=== PATIENT | male | born 1950 | race Caucasian/White ===

== ENCOUNTER 2018-01-10 14:30 | Inpatient (IN) | payer MEDICARE ==
[~2018-01-10 14:30] MED LIST: Heparin 1,000 UNITS/ML VIAL ONE
[2018-01-10] MEDS ORDERED: Morphine 4 MG/ML VIAL ONE (15:19)
[2018-01-10] MEDS ORDERED: Vancomycin HCl 1.5 GM in Sodium Chloride 0.9% 250 ML 300 ML IVPB SCH (15:30)
[2018-01-10] MEDS ORDERED: Cefepime 2 GM, Syringe 2.5 ML in Sodium Chloride 0.9% 10 ML SLOW IVP SCH (15:30)
--- NOTE | 2018-01-10 17:08 | RAD ---
CHEST TWO VIEW 01/10/18 HISTORY: Shortness of breath. Pleural effusions. COMPARISON: Chest radiograph 11/24/13. FINDINGS: No large left pleural effusion. Compressive atelectasis in the both lower lobes. Left basilar air space opacity is present. Mild pulmonary venous congestion. IMPRESSION: 1. Large left layering pleural effusion. 2. Left basilar air space opacity concerning for infection. 3. Mild pulmonary venous congestion. POS: [facility]
--- NOTE | 2018-01-10 17:26 | CT ---
CT ANGIOGRAM THORAX WITH CONTRAST: 01/10/18 HISTORY: Evaluate for pulmonary embolism. Pneumonia. COMPARISON: Chest radiograph same day. FINDINGS: CT angiogram chest performed after the intravenous administration of contrast. CT rendering provided. No proximal or segmental pulmonary arterial filling defect. Large layering left pleural effusion. No pericardial effusion. Mildly prominent right cardiophrenic lymph nodes. Left basilar air space opacity is present. No pneumothorax. There are foci of parenchymal nonenhancem ent within the left lower lobe. No thoracic spine compression fracture. Sternomanubrium and clavicles are intact. No displaced rib fracture. IMPRESSION: 1. No proximal segmental pulmonary arterial filling defect. 2. Large layering left pleural effusion and underlying left lower lobe likely pneumonia. 3. Small mediastinal and right cardiophrenic lymph nodes may be reactive in nature. 4. There is abnormal hypodensity throughout the spleen with a focal area of air fluid level ty g the medial margin. Some internal calcifications. This is incompletely evaluated on this examination . This abuts the splenic artery. Differential includes a abscess, infected mass, gastric diverticulum , and abscess from a diverticulitis of the sigmoid colon with infiltration of the spleen. CT abdomen and pelvis with contrast recommended. Surgical consultation advised. At this point, a diverticular ab scess and infiltration of the spleen is felt most likely. Code GREYSON Webb notified of the findings via telephone 3:48 p.m. POS: [facility]
--- NOTE | 2018-01-10 18:21 | CT ---
CT OF THE ABDOMEN AND PELVIS WITH IV CONTRAST 01/10/18 INDICATION: Concern for splenic abscesses. COMPARISON: CTA of the thorax dated 01/10/18. CONTRAST: The patient received 260 mL of contrast for the abdominal and pelvic examination and 45 mL for the pr ior CTA examination. FINDINGS: There is wall thickening and pericolonic inflammatory stranding involving the descending colon that e xtends up to the splenic flexure. There is a spiculated soft tissue density seen adjacent to the medi al margin of the splenic flexure on images 36 and 37 of series 2 measuring 3 cm that communicates wit h the fluid and gas collection seen in the region of the pancreatic tail and splenic hilum on image 3 1 of series 2 measuring 4.8 cm. There is stippled calcifications seen within the region of the pancre atic tail which may be related to the splenic artery or possibly reflects sequela of prior pancreatit is. There are three lenticular shaped hypodensities seen within the subcapsular region of the inferio r pole of the spleen with the largest measuring 5 cm on image 138 of the coronal series. These appea r to communicate with the fluid and gas collection seen near the pancreatic tail and splenic hilum on image 31 of series 2. There is fatty infiltration of the liver. There is air space consolidation and a small left pleural effusion. There is mild right basilar atele ctasis. No focal renal lesion is evident. There is scattered diverticula involving the colon. The small bowel is normal appearing. No acute osseous abnormality is evident. IMPRESSION: 1. Fluid and gas collection within the region of the pancreatic tail and splenic hilum measuring up to 4.7 cm communicates with the soft tissue density seen along the medial margin of the splenic h ilum. Findings may reflect sequela of a diverticulitis with a contained perforation with a soft tissu e spiculation reflecting inflammatory phelegmon. The fluid and gas collection does communicate with t he hypodensities involving the inferior pole of the spleen which are primarily in a subcapsular locat ion, suspicious for perisplenic abscesses. There is wall thickening involving the descending colon wi th pericolonic inflammatory stranding suspicious for changes of colitis. There are numerous diverticu la present involving the colon. This may be reflective of complicated diverticulitis. GI consultation is recommended. A contained perforation from malignancy of the colon cannot be entirely excluded. 2. Left lower lobe air space consolidation and small left pleural effusion is suspicious for pne umonia with peripneumonic effusion. 3. Fatty liver. POS: [facility]
[2018-01-10] MEDS ORDERED: MEROPENEM 1 GM/50 ML 1 GM in Premix Bag 1 BAG IVPB SCH (19:00)
--- NOTE | 2018-01-10 19:34 | CON ---
DATE OF CONSULTATION: 01/10/2018 CHIEF COMPLAINT: Upper abdominal pain and shortness of breath. HISTORY OF PRESENT ILLNESS: This is a 67-year-old male who [facility]. He had a chest x-ray revealing pleural effusion on the left, sent to [facility] for higher level of care. He had a CT of his chest, which revealed left pleural eff usion. However, there seemed to be some inflammatory reaction in the left upper quadrant and will lo ok like splenic infarcts that led to an abdominal CT, which confirms likely diverticulitis of the sig moid flexure. There is some free fluid in the area, but no free air. The patient is being admitted to the medical service and I have been consulted for this diverticulitis. He also likely has a left pneumonia on this CT of the chest. PAST MEDICAL HISTORY: Includes hypertension, chronic anemia, esophagitis and upper gastrointestinal bleed. 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 MEDICINES: See list. ALLERGIES: PENICILLIN. SOCIAL HISTORY: No smoking, alcohol or other drugs. REVIEW OF SYSTEMS: Ten system review of systems otherwise negative unless described above. PHYSICAL EXAMINATION: VITAL SIGNS: Blood pressure is 134/60, pulse 89. He is afebrile. HEENT: Sclerae are anicteric. Oropharynx is clear. NECK: No lymphadenopathy. CHEST: Clear. HEART: Regular rate and rhythm. ABDOMEN: Soft, but he is tender in the left upper quadrant and left flank with localized guarding, w ithout rebound. No abdominal or inguinal hernias. EXTREMITIES: No ischemia or edema to extremities. LABORATORY DATA: From an outside institution are reviewed. IMAGING DATA: CT scan shows likely sigmoid diverticulitis. There is an air fluid collection in the medial aspect of the spleen, but other than that is mostly inflammatory change. ASSESSMENT: Splenic flexure of colon diverticulitis with associated left pleural effusion, pneumonia . PLAN: Hospitalist to admit the patient. We will follow with you. I suspect this can be managed wit h IV antibiotics, rescan in a couple of days if not improving.
[2018-01-10] MEDS ORDERED: Meropenem 1 GM in Sodium Chloride 0.9% 100 ML IVPB SCH (19:45)
[2018-01-10 19:57] LABS: Hemoglobin 10.1 g/dL (14.0-18.0); Mean Corpuscular HGB CONC 33.7 g/dL (32.0-36.0); Mean Corpuscular Hemoglobin 28.6 pg (27.0-31.0); Mean Corpuscular Volume 84.8 fl (80.0-94.0); Mean Platelet Volume 8.3 fL (7.4-10.4); Platelet Count 280 thou/uL (130-400); RBC Distribution Width 13.6 % (11.5-14.5); Red Blood Cell (RBC) Count 3.55 mill/uL (4.70-6.10); White Blood Cell (WBC) Count 14.4 thou/uL (4.8-10.8)
[2018-01-10 20:17] LABS: Band 14 % (5-11); Hypochromia SLIGHT = 6-15 cells (100X) (0-5/hpf); Lymphocytes 2 % (21-51); MDiff Complete? YES; Monocytes 7 % (0-10); Neutrophil 77 % (42-75); Ovalocytes SLIGHT = 2-5 cells (100X) (0-1/hpf); PLT Morphology Comment Appears Adequate
[2018-01-10 20:18] LABS: ALT (SGPT) 11 U/L (8-55); AST (SGOT) 12 U/L (5-34); Albumin 2.8 g/dL (3.4-4.8); Alkaline Phosphatase 138 U/L (40-150); Anion Gap 13 mmol/L (10-20); BUN (Urea Nitrogen) 15 mg/dL (8.4-25.7); Bilirubin, Total 0.7 mg/dL (0.2-1.2); Calc. Creatinine Clearance 0 mL/min (70-130); Calcium 8.4 mg/dL (7.8-10.44); Carbon Dioxide 22 mmol/L (23-31); Chloride 94 mmol/L (98-107); Estimated GFR-MDRD Greater than 90; Globulin 4.6 g/dL (2.4-3.5); Glucose 158 mg/dL (80-115); Potassium 3.5 mmol/L (3.5-5.1); Protein, Total 7.4 g/dL (5.8-8.1); Sodium 125 mmol/L (136-145)
[2018-01-10 20:24] LABS: Troponin I Less than 0.010 ng/mL (< 0.028)
--- NOTE | 2018-01-10 20:31 | RAD ---
AP VIEW OF THE CHEST 01/10/18 INDICATION: CVC placement. IMPRESSION: There is a new right IJ catheter in place projecting over the cavoatrial junction. No pneumothorax is evident. Left sided pleural parenchymal opacity is stable. Right lung base atelectasis is similar. O sseous structures are unremarkable. POS: [facility]
[2018-01-10] MEDS ORDERED: Ondansetron HCl/PF 4 MG/2 ML Vial IVP PRN ×2 (22:40→22:47)
[2018-01-10] MEDS ORDERED: Ondansetron ODT 4 MG TAB SL PRN (22:40)
[2018-01-10] MEDS ORDERED: Promethazine HCl 25 MG/ML VIAL IM PRN (22:47)
[2018-01-10] MEDS ORDERED: Senokot 8.6 MG TAB PO PRN (22:47)
[2018-01-10] MEDS ORDERED: Acetaminophen 650 MG Suppository PR PRN (22:47)
[2018-01-10] MEDS ORDERED: hydrALAZINE 20 MG/ML VIAL SLOW IVP PRN (22:47)
[2018-01-10] MEDS ORDERED: Famotidine/PF 20 mg/2ml Vial SLOW IVP SCH (22:47)
[2018-01-10] MEDS ORDERED: Nitroglycerin 0.4 MG TAB (25 Tab Bottle) SL PRN (22:47)
[2018-01-10] MEDS ORDERED: Dextrose 5% in Water 1,000 ML IV PRN (22:47)
[2018-01-10] MEDS ORDERED: Dextrose 50% Abboject 50 ML SYRINGE SLOW IVP PRN (22:47)
[2018-01-10 22:57] VITALS: BMI 43.9
[2018-01-10 23:25] LABS: Troponin I Less than 0.010 ng/mL (< 0.028)
[2018-01-11] MEDS: Sodium Chloride 0.9% 1,000 ML IV SCH ×3 (00:39→16:26)
[2018-01-11] MEDS: Levofloxacin 500 mg/D5W 100 ml Premix Bag IVPB SCH ×2 (00:39→23:15)
[2018-01-11] MEDS: metroNIDAZOLE 500 MG in Premix Bag 1 BAG IVPB SCH ×4 (00:55→23:06)
[2018-01-11] MEDS: Morphine 5 MG/ML SYRINGE SLOW IVP PRN ×3 (03:16→12:55)
[2018-01-11] MEDS: Ondansetron HCl/PF 4 MG/2 ML Vial IVP PRN ×2 (03:18→08:09)
[2018-01-11] MEDS: Vancomycin HCl 1.75 GM in Sodium Chloride 0.9% 500 ML IVPB SCH ×2 (04:30→16:26)
[2018-01-11 05:56] LABS: #Eosinphils 0.1 thou/uL (0.0-0.7); #Lymphocytes 0.6 thou/uL (1.20-3.40); #Neutrophils 9.6 thou/uL (1.40-6.50); %Basophils 0.2 % (0.0-1.0); %Eosinophils 0.6 % (0.0-10.0); %Lymphocytes 4.9 % (21.0-51.0); %Monocytes 8.7 % (0.0-10.0); %Neutrophils 85.7 % (42.0-75.0); Hemoglobin 9.4 g/dL (14.0-18.0); Mean Corpuscular HGB CONC 33.8 g/dL (32.0-36.0); Mean Corpuscular Hemoglobin 28.1 pg (27.0-31.0); Mean Corpuscular Volume 83.2 fl (80.0-94.0); Mean Platelet Volume 8.4 fL (7.4-10.4); Platelet Count 244 thou/uL (130-400); RBC Distribution Width 13.5 % (11.5-14.5); Red Blood Cell (RBC) Count 3.33 mill/uL (4.70-6.10); White Blood Cell (WBC) Count 11.2 thou/uL (4.8-10.8)
[2018-01-11 06:17] LABS: Anion Gap 13 mmol/L (10-20); BUN (Urea Nitrogen) 16 mg/dL (8.4-25.7); Calc. Creatinine Clearance 146 mL/min (70-130); Calcium 8.1 mg/dL (7.8-10.44); Carbon Dioxide 22 mmol/L (23-31); Chloride 95 mmol/L (98-107); Estimated GFR-MDRD 87; Glucose 195 mg/dL (80-115); Potassium 3.6 mmol/L (3.5-5.1); Sodium 126 mmol/L (136-145)
--- NOTE | 2018-01-11 07:39 | HP ---
DATE OF ADMISSION: 01/10/2018 CHIEF COMPLAINT: Abdominal pain and worsening shortness of breath. HISTORY OF PRESENT ILLNESS: Mr. Dickey is a pleasant 67-year-old male with past medical history of h ypertension, dyslipidemia, and diabetes, who presented to the emergency room with the above-mentioned complaint at [place] emergency room initially. History is mainly obtained by the patient himself a nd electronic medical records have been reviewed. According to Mr. Dickey, he has been feeling bad since 12/27 of this year. 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 He reports that he started to feel worsening shortness of br eath and he sought care at the Urgent Care outside and was prescribed antibiotics and steroids withou t any relief. He also endorses some left-sided abdominal pain, which then radiated to his left side, ongoing all this amount of time. He also reports on and off fever and chills, which would get ebony r only to return back. When his symptoms did not improve and he was not able to get in through his P CP, he presented to the emergency room at [place]. In [place] emergency room, he was found to have pleural effusions on the chest x-ray and possible pneumonia as well as elevated D-dimer. He was giv en Levaquin for this. His further workup at [place] showed hyponatremia, hypokalemia, hyperglycemia , leukocytosis, mild anemia. He was transferred to our facility for further evaluation. In our emergency room because of the elevated D-dimer, he underwent a CT scan of the chest to rule ou t pulmonary embolism. It was negative for the same, but demonstrated pleural effusion and pneumonia as well as possible splenic lesions concerning for abscess. For this reason, he underwent a CT scan of the abdomen and pelvis, which demonstrated multiple perisplenic abscesses and subcapsular splenic abscesses as a possible consequence of contained perforation from diverticulitis. General Surgery wa s contacted with regards to that admission, but they declined it and wanted the patient to be admitte d to the Internal Medicine service. Lexi was contacted and at this time, he is being admitted for t he above-mentioned diagnosis. He has been started on broad spectrum IV antibiotic and received vanco mycin, cefepime and meropenem in the emergency room. Currently, he is feeling a bit better. PAST MEDICAL HISTORY: 1. Hypertension. 2. Dyslipidemia. 3. Diabetes mellitus. PAST SURGICAL HISTORY: 1. Basal cell carcinoma, removal of the nose 2. Cataract surgery. 3. Tonsillectomy. PSYCHIATRIC SURGERY: No anxiety, no depression. 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 No history of drug, tobacco or alcohol abuse. FAMILY HISTORY: Significant for some heart disease in both of his parents in the 80s. His mother di ed of chronic kidney disease. ALLERGIES: PENICILLIN. CURRENT MEDICATIONS: Amlodipine 10 mg daily, atorvastatin 20 mg daily, Iron 65 mg daily, lisinopril 20 mg daily, metformin 500 mg q.i.d., Onglyza 5 mg in the evening, Farxiga 5 mg daily. REVIEW OF SYSTEMS: The following complete review of systems was negative, unless otherwise mentioned in the HPI or below: Constitutional: Weight loss or gain, ability to conduct usual activities. Skin: Rash, itching. Eyes: Double vision, pain. ENT/Mouth: Nose bleeding, neck stiffness, pain, tenderness. Cardiovascular: Palpitations, dyspnea on exertion, orthopnea. Respiratory: Shortness of breath, wheezing, cough, hemoptysis, fever or night sweats. Gastrointestinal: Poor appetite, abdominal pain, heartburn, nausea, vomiting, constipation, or diarr hea. Genitourinary: Urgency, frequency, dysuria, nocturia. Musculoskeletal: Pain, swelling. Neurologic/Psychiatric: Anxiety, depression. Allergy/Immunologic: Skin rash, bleeding tendency. PHYSICAL EXAMINATION: VITAL SIGNS: Upon presentation, blood pressure 132/66, pulse of 88, respirations 22, temperature 98. 7, saturating 98% on room air. GENERAL: He is sitting up on the side of the bed in no acute distress, but he gets easily winded wit h conversation and speaking in short sentences. He is somewhat diaphoretic as well and tachypneic. Otherwise, no acute distress, awake, alert, oriented x3. HEENT: Mucous membrane is moist and pink. No oropharyngeal exudate or erythema. Head is normocepha lic, atraumatic. Pupils are equal, round, reactive to light and accommodation. Extraocular movement intact. NECK: Supple without any lymphadenopathy, JVD or bruit. CHEST: Clear to auscultation except for diminished breath sounds at the left lower base. CARDIOVASCULAR: Rate and rhythm is regular without any murmur, rubs or gallops. ABDOMEN: Somewhat tender to palpation, more so on the left upper quadrant without any rebound, guard ing, or rigidity. EXTREMITIES: Show pitting edema to bilateral lower extremity, +1. NEUROLOGIC: Nonfocal. SKIN: Free of any rashes or bruises. I feel warm and dry to touch. PSYCHIATRIC: Normal affect. IMAGING: A 12-lead EKG by my review shows incomplete right bundle branch block and sinus rhythm at 9 5 beats per minute. Chest x-ray by my review shows pleural effusions, which is at least moderate to severe in the left side as well as left basilar infiltration concerning for infection. CT scan of th e abdomen and pelvis as per the HPI concerning for perisplenic abscess and inflammatory changes at th e surrounding area as well as descending colonic thickening suggestive of colitis. CT angio of the t horax is negative for any pulmonary embolism. IMPRESSION AND PLAN: 1. Sepsis. The patient has pneumonia as well as perisplenic abscess with possible perforation of di verticulum. He is currently hemodynamically stable. He will be continued on normal saline for resus citation as well as broad spectrum IV antibiotics. We will request consultations from Infectious Dis ease physician, Dr. Samuel. Blood cultures have been obtained and we will follow the results. The pa selin has high chances of bacteremia with primary infection being in the belly with pneumonia as a se condary infection. 2. Dyspnea. This is secondary to pneumonia as well as pleural effusion and intra-abdominal patholog y. We will continue nebulizers and supplemental oxygen. Monitor for fluid overload. No reason to s uggest a cardiac pathology. His cardiac enzymes are negative x2. 3. Perisplenic abscess is a possible diverticular perforation. Dr. Jordan has evaluated the patien t in the emergency room and most likely he will be taken for a percutaneous drainage of the abscess. Continue IV medications and IV antibiotics for now. 4. Pneumonia. Continue IV antibiotics as above. 5. Large left-sided pleural effusion. We will request consultations from Pulmonary Medicine for pos sible thoracentesis. This most likely is either secondary to parapneumonic effusion versus secondary to intra-abdominal pathology. Continue supportive measures and oxygen by nasal cannula and nebulize rs as needed. 6. Diabetes mellitus type 2. We will start him on insulin sliding scale and hold oral hypoglycemics as the patient is currently n.p.o. for possible surgical evaluation in the morning. 7. Hyponatremia, most likely syndrome of inappropriate antidiuretic hormone secretion due to pulmona ry pathology. Continue the normal saline and continue to monitor. If it does not improve, we will r equest consultation from Nephrology or use conivaptan x1. 8. History of hypertension. Resume amlodipine at this time. We will hold lisinopril to avoid renal injury in case he receives iodine or dye during the surgical procedures or any further imaging proce dures are necessary. He has also received a significant amount of dye with a CT angio and CT scan of the abdomen and pelvis. Add p.r.n. antihypertensives. 9. CODE STATUS: FULL CODE. Discussed with the patient. DISPOSITION: Mr. Dickey is currently being admitted for dyspnea sepsis due to pneumonia, pleural eff usion and intra-abdominal abscess. Further management will depend upon his clinical course. Estimat ed length of stay at least 2-3 midnights.
[2018-01-11] MEDS ORDERED: ISOVUE-370 76%-LOCM 1 ML ONE (08:08)
[2018-01-11] MEDS: Amlodipine 10 MG TAB PO SCH (08:10)
[2018-01-11] MEDS: Ferrous Sulfate 325 MG TAB PO SCH (08:10)
[2018-01-11] MEDS: Famotidine 20 MG TAB PO SCH ×2 (08:11→21:32)
[2018-01-11] MEDS ORDERED: FERROUS SULFATE DRIED PO SCH ×2 (09:00)
[2018-01-11] MEDS ORDERED: Vancomycin HCl 1 GM in Sodium Chloride 0.9% 250 ML 250 ML IVPB SCH (09:00)
--- NOTE | 2018-01-11 09:39 | PRG ---
DATE OF SERVICE: 01/11/2018 SUBJECTIVE: Mr. Dickey feels better today. His pain in his left upper lateral flank is persistent, but improved, hemodynamically stable overnight and afebrile. PHYSICAL EXAMINATION: VITAL SIGNS: Blood pressure 139/65, pulse 83, temperature max 99.1, multiple voids. CHEST: Clear. HEART: Regular rate and rhythm. ABDOMEN: Soft, mildly tender in the left upper quadrant. No guarding or rebound. LABORATORY DATA: White blood cell count is 11, hemoglobin 9.4, platelet count is 244, creatinine 0.8 8. Sodium 126. ASSESSMENT AND PLAN: Complex perforated diverticulitis with phlegmon in the left upper quadrant invo lving the spleen. There is fluid, but this is probably not going to be amenable to percutaneous damon humphrey given its location in the hilum of the spleen and the tail of the pancreas. My recommendation i s continue IV antibiotics. Continue n.p.o. today, although will allow him to do ice chips and sips. If he is still doing well tomorrow, could probably put on a liquid diet.
[2018-01-11] MEDS: Famotidine/PF 20 mg/2ml Vial SLOW IVP SCH ×2 (09:43→21:32)
--- NOTE | 2018-01-11 11:44 | PDOC.PN ---
- Subjective Encounter Start Date: 01/11/18 Encounter Start Time: 08:30 -: old records requested/rev Patient seen and examined. No new complaints. No overnight events has lower abdominal and back pain - Objective MAR Reviewed: Yes Vital Signs & Weight: Vital Signs (12 hours) Temp Pulse Resp BP BP BP BP 01/11/18 08:10 99.1 F 83 18 139/65 01/11/18 08:05 99.1 F 18 01/11/18 05:28 99.1 F 83 22 H 139/65 01/11/18 03:58 98.8 F 87 20 132/58 L 01/11/18 01:27 98.3 F 89 20 131/60 01/11/18 00:00 98.2 F 99 20 133/58 L Pulse Ox 01/11/18 08:10 01/11/18 08:05 98 01/11/18 05:28 94 L 01/11/18 03:58 96 01/11/18 01:27 96 01/11/18 00:00 96 Weight Weight 272 lb 3.2 oz I&O: 01/10/18 01/11/18 01/12/18 06:59 06:59 06:59 Intake Total 1080 Output Total 340 Balance 740 Result Diagrams: 01/11/18 05:13 01/11/18 05:13 Additional Labs: Accuchecks 01/11/18 01/11/18 01/10/18 11:02 05:40 23:54 POC Glucose 196 H 195 H 163 H Radiology Reviewed by me: Yes EKG Reviewed by me: Yes Phys Exam - Physical Examination Constitutional: NAD HEENT: PERRLA, moist MMs, sclera anicteric Neck: no JVD, supple Respiratory: no wheezing, no rhonchi left base rales, reduced air entry Cardiovascular: RRR, no significant murmur, no rub Gastrointestinal: soft, no distention, positive bowel sounds obesity, LLQ tenderness Musculoskeletal: no edema, pulses present Neurological: non-focal, normal sensation, moves all 4 limbs Lymphatic: no nodes Psychiatric: normal affect, A&O x 3 Skin: no rash, normal turgor Dx/Plan (1) Atelectasis Status: Acute (2) Colonic diverticular abscess Code(s): K57.20 - DVTRCLI OF LG INT W PERFORATION AND ABSCESS W/O BLEEDING Status: Acute (3) 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 Code(s): K57.30 - DVRTCLOS OF LG INT W/O PERFORATION OR ABSCESS W/O BLEEDING Status: Acute (4) Hyponatremia Code(s): E87.1 - HYPO-OSMOLALITY AND HYPONATREMIA Status: Acute (5) Left lower lobe pneumonia Code(s): J18.1 - LOBAR PNEUMONIA, UNSPECIFIED ORGANISM Status: Acute (6) Parapneumonic effusion Code(s): J18.9 - PNEUMONIA, UNSPECIFIED ORGANISM; J91.8 - PLEURAL EFFUSION IN OTHER CONDITIONS CLASSIFIED ELSEWHERE Status: Acute (7) Sepsis Code(s): A41.9 - SEPSIS, UNSPECIFIED ORGANISM Status: Acute (8) Anemia, normocytic normochromic Code(s): D64.9 - ANEMIA, UNSPECIFIED Status: Chronic (9) Diabetes type 2, controlled Code(s): E11.9 - TYPE 2 DIABETES MELLITUS WITHOUT COMPLICATIONS Status: Chronic (10) Dyslipidemia Code(s): E78.5 - HYPERLIPIDEMIA, UNSPECIFIED Status: Chronic (11) Hypertension Code(s): I10 - ESSENTIAL (PRIMARY) HYPERTENSION Status: Chronic (12) Morbid obesity with BMI of 40.0-44.9, adult Code(s): E66.01 - MORBID (SEVERE) OBESITY DUE TO EXCESS CALORIES; Z68.41 - BODY MASS INDEX (BMI) 40.0-44.9, ADULT Status: Chronic - Plan cont current plan of care, continue antibiotics, incentive spirometry, DVT proph w/lovenox * GI, general surgeon and ID consulted * pulmonary on case as well * continue levaquin, flagyl and vancomycin * will need drainage of abscess * keep NPO * pain controlled * medication reviewed as below * symptomatic treatment. Review of Systems - Review of Systems Constitutional: negative: fever, chills, sweats, weakness, malaise, other Eyes: negative: Pain, Vision Change, Conjunctivae Inflammation, Eyelid Inflammation, Redness, Other ENT: negative: Ear Pain, Ear Discharge, Nose Pain, Nose Discharge, Nose Congestion, Mouth Pain, Mouth Swelling, Throat Pain, Throat Swelling, Other Respiratory: Cough, Shortness of Breath. negative: Dry, Hemoptysis, SOB with Excertion, Pleuritic Pain, Sputum, Wheezing Cardiovascular: negative: chest pain, palpitations, orthopnea, paroxysmal nocturnal dyspnea, edema, light headedness, other Gastrointestinal: Abdominal Pain. negative: Nausea, Vomiting, Diarrhea, Constipation, Melena, Hematochezia, Other Genitourinary: negative: Dysuria, Frequency, Incontinence, Hematuria, Retention , Other Musculoskeletal: negative: Neck Pain, Shoulder Pain, Arm Pain, Back Pain, Hand Pain, Leg Pain, Foot Pain, Other Skin: negative: Rash, Lesions, Saeid, Bruising, Other - Medications/Allergies Allergies/Adverse Reactions: Allergies Allergy/AdvReac Type Severity Reaction Status Date / Time Penicillins Allergy Verified 01/10/18 23:21 Medications: Current Medications Acetaminophen (Tylenol) 650 mg WI Q4H PRN PRN Reason: Headache/Fever or Pain Acetaminophen (Tylenol) 650 mg PO Q4H PRN PRN Reason: Headache/Fever or Pain Albuterol/Ipratropium (Duoneb) 3 ml NEB Q4H PRN PRN Reason: Wheezing Amlodipine Besylate (Norvasc) 10 mg PO DAILY [facility] Last Admin: 01/11/18 08:10 Dose: 10 mg Atorvastatin Calcium (Lipitor) 20 mg PO HS [facility] Bisacodyl (Dulcolax) 10 mg PO DAILYPRN PRN PRN Reason: Constipation Dextrose/Water (Dextrose 50%) 25 gm SLOW IVP PRN PRN PRN Reason: Hypoglycemia Famotidine (Pepcid) 20 mg PO Q12HR [facility] Last Admin: 01/11/18 08:11 Dose: Not Given Famotidine (Pepcid) 20 mg SLOW IVP Q12HR [facility] Last Admin: 01/11/18 09:43 Dose: 20 mg Ferrous Sulfate (Feosol) 325 mg PO DAILY [facility] Last Admin: 01/11/18 08:10 Dose: 325 mg Glucagon (Glucagon) 1 mg IM PRN PRN PRN Reason: Hypoglycemia Hydralazine HCl (Apresoline) 10 mg SLOW IVP Q4H PRN PRN Reason: SBP > 170 or DBP > 100 Dextrose/Water (D5w) 1,000 mls @ 0 mls/hr IV .Q0M PRN; As Directed PRN Reason: Hypoglycemia Metronidazole 500 mg/ Device 100 mls @ 100 mls/hr IVPB 0800,1600,2359 [facility] Last Admin: 01/11/18 09:43 Dose: 100 mls Sodium Chloride (Normal Saline 0.9%) 1,000 mls @ 110 mls/hr IV .Q9H6M [facility] Last Admin: 01/11/18 08:08 Dose: 1,000 mls Vancomycin HCl 1.75 gm/ Sodium (Chloride) 500 mls @ 333.333 mls/hr IVPB 0500, 1700 [facility] Last Admin: 01/11/18 04:30 Dose: 500 mls Insulin Human Lispro (Humalog) 0 units SC .MILD SLIDING SCALE PRN PRN Reason: Mild Correctional Scale Levofloxacin (Levaquin) 500 mg IVPB Q24HR [facility] Last Admin: 01/11/18 00:39 Dose: 500 mg Morphine Sulfate (Morphine) 2 mg SLOW IVP Q2H PRN PRN Reason: Moderate Pain (4-6) Morphine Sulfate (Morphine) 4 mg SLOW IVP Q2H PRN PRN Reason: Severe Pain (7-10) Last Admin: 01/11/18 08:09 Dose: 4 mg Nitroglycerin (Nitrostat) 0.4 mg SL Q5MIN PRN PRN Reason: Chest Pain Ondansetron HCl (Zofran) 4 mg IVP Q6H PRN PRN Reason: Nausea/Vomiting Last Admin: 01/11/18 08:09 Dose: 4 mg Ondansetron HCl (Zofran) 4 mg IVP Q6H PRN PRN Reason: Nausea/Vomiting Promethazine HCl (Phenergan) 12.5 mg IM Q4H PRN PRN Reason: Nausea/Vomiting Senna (Senokot) 2 tab PO HSPRN PRN PRN Reason: Constipation Sodium Chloride (Flush - Normal Saline) 10 ml IVF PRN PRN PRN Reason: Saline Flush
[2018-01-11] MEDS ORDERED: Clopidogrel Bisulfate 75 MG TAB ONE (15:36)
[2018-01-11 20:03] LABS: BF Color Yellow; Body Fluid Source THORACENTESIS FLD; Clarity Cloudy/Turbid (Clear)
[2018-01-11 20:04] LABS: BF RBC Count - Manual 2000 /cumm; Tube # 1; WBC/NonHematic-Auto 6580 /cumm
[2018-01-11 20:06] LABS: Pleural Fluid, Amylase Less than 30 U/L (Not Available); Pleural Fluid, Glucose 165 mg/dL; Pleural Fluid, LDH 264 U/L (Not Available)
[2018-01-11 20:22] LABS: BF Segmented Neutrophils 89 %; Cell Count Non Hematic 6 %; Lymphocytes 5 %
--- NOTE | 2018-01-11 20:40 | CON ---
DATE OF CONSULTATION: 01/11/2018 SERVICE: Pulmonary Medicine. REASON FOR CONSULTATION: Pleural effusion. HISTORY OF PRESENT ILLNESS: The patient is a 67-year-old white male with past medical history significant for a 2-1/2 to 3-week history of fevers, chills, night sweats, and in general just feeling lousy. 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 As such, he really put off seeing anybody for some period of time. Ultimately, he went to a physician who told him that he had a bad virus. He was given a Z-Reddy. He felt better for a brief period of time, but then again had recrudescence in symptoms. At this time around, he went to the emergency department. He was discovered to have a pneumonia with an effusion. A CT scan of the abdomen and pelvis was performed demonstrating multiple areas of acute infectious processes occurring. He currently denies any nausea, vomiting or diarrhea. He got antibiotics overnight and is feeling a little bit improved today. On the CT scan, he had a left lower lobe infiltrate, as well as a parapneumonic effusion. There are multiple splenic hypodensities, possibly consistent with abscesses. PAST MEDICAL HISTORY: 1. Hypertension. 2. Dyslipidemia. 3. Type 2 diabetes mellitus. PAST SURGICAL HISTORY: 1. Excision of basal cell carcinoma from the nose. 2. Cataract surgeries. 3. Tonsillectomy. SOCIAL HISTORY: Negative for alcohol, tobacco or illicit drug use. He has no exposure to chemicals, dust, asbestos or tuberculosis. FAMILY HISTORY: Noncontributory. ALLERGIES: PENICILLIN. MEDICATIONS: List of his inpatient medications was reviewed. No specific updates were made at this time. REVIEW OF SYSTEMS: General, head, ears, eyes, nose, throat, cardiovascular, respiratory, GI, , musculoskeletal, neurologic and skin is negative except as mentioned in the HPI. PHYSICAL EXAMINATION: VITAL SIGNS: Afebrile, pulse 88, blood pressure 136/67, respirations 18, saturation 97% on 2 liters nasal cannula. GENERAL: The patient is awake and alert, in no apparent distress. LUNGS: Decent air entry. There are crackles present in the left base. HEART: Normal rate, regular. ABDOMEN: Soft, nontender, nondistended. Bowel sounds are positive. MUSCULOSKELETAL: No cyanosis or clubbing. There is no pitting in the bilateral lower extremities. NEUROLOGIC: Grossly nonfocal. LABORATORY DATA: WBC is down trending to 11.2, hemoglobin 9.4, platelets 244, 000. On presentation, he had 14% bands. Sodium 126. Basic metabolic profile is otherwise unremarkable. Cardiac enzymes negative x1. Liver function studies are completely unremarkable. Lactate 0.9. Microbiology includes negative blood cultures x2. Influenza A and B are negative. IMAGIN. CTA of the chest demonstrates no evidence of a pulmonary embolism. There is a left lower lobe consolidating infiltrate with air bronchograms. He has an adjacent pleural effusion there. 2. CT of the abdomen and pelvis demonstrates hypodensities throughout the spleen with focal area of air fluid level along the medial margin. Internal calcifications are present. ASSESSMENT: 1. Community-acquired pneumonia. 2. Pleural effusion on the left. 3. Splenic abscesses, suspected. PLAN: We will proceed with a thoracentesis. Hopefully, this space will not be infected. At this point, it appears to be free flowing based on the CT scan results. He is on good empiric antibiotics at this time. The duration of antibiotics will be directed by everything that we discover during this investigation. 70 minutes have been devoted to this patient in various activities. I personally reviewed all imaging studies and laboratory data noted within this document. For fifty percent of this time, I was interacting with the patient at the bedside or coordinating care with the care team. For the remainder of the time I was immediately available to the patient in the hospital unit. MARTINEZ
[2018-01-11] MEDS: Atorvastatin Calcium 20 MG TAB PO SCH (21:32)
[2018-01-12] MEDS: Sodium Chloride 0.9% 1,000 ML IV SCH ×3 (02:31→23:11)
[2018-01-12 05:15] LABS: #Eosinphils 0.1 thou/uL (0.0-0.7); #Lymphocytes 0.5 thou/uL (1.20-3.40); #Neutrophils 10.5 thou/uL (1.40-6.50); %Basophils 0.4 % (0.0-1.0); %Eosinophils 0.6 % (0.0-10.0); %Lymphocytes 3.9 % (21.0-51.0); %Monocytes 7.9 % (0.0-10.0); %Neutrophils 87.3 % (42.0-75.0); Hemoglobin 9.7 g/dL (14.0-18.0); Mean Corpuscular HGB CONC 32.8 g/dL (32.0-36.0); Mean Corpuscular Hemoglobin 28.2 pg (27.0-31.0); Platelet Count 330 thou/uL (130-400); RBC Distribution Width 13.7 % (11.5-14.5); Red Blood Cell (RBC) Count 3.45 mill/uL (4.70-6.10); White Blood Cell (WBC) Count 12.1 thou/uL (4.8-10.8)
[2018-01-12] MEDS: Vancomycin HCl 1.75 GM in Sodium Chloride 0.9% 500 ML IVPB SCH ×2 (05:18→17:29)
[2018-01-12 06:54] LABS: ALT (SGPT) 11 U/L (8-55); AST (SGOT) 11 U/L (5-34); Albumin 2.6 g/dL (3.4-4.8); Alkaline Phosphatase 94 U/L (40-150); Anion Gap 13 mmol/L (10-20); BUN (Urea Nitrogen) 15 mg/dL (8.4-25.7); Bilirubin, Total 0.6 mg/dL (0.2-1.2); Calc. Creatinine Clearance 118 mL/min (70-130); Calcium 8.1 mg/dL (7.8-10.44); Carbon Dioxide 19 mmol/L (23-31); Chloride 100 mmol/L (98-107); Estimated GFR-MDRD 68; Globulin 4.2 g/dL (2.4-3.5); Glucose 163 mg/dL (80-115); Lipase 9 U/L (8-78); Potassium 3.8 mmol/L (3.5-5.1); Protein, Total 6.8 g/dL (5.8-8.1); Sodium 128 mmol/L (136-145)
--- NOTE | 2018-01-12 09:16 | CON ---
DATE OF CONSULTATION: 01/11/2018 REASON FOR CONSULTATION: Intraabdominal abscess. HISTORY OF PRESENT ILLNESS: A 67-year-old patient who has a history of hypertension, gout, obesity and was in his usual state until about 2 weeks before admission when he developed upper quadrant abdominal pain associated with fever. He was seen at an Express [facility] Unit few days later and they gave him azithromycin with improvement in symptoms for few days and then recrudescence. The pain now localized more towards the back area surrounding the flank region on the left side, but also sometimes manifested on the right upper quadrant. He went back to [facility] and there was evidence of pleural effusions and he was transferred for further evaluation here. A CT scan of the chest showed possible splenic abscess and had a CT of abdomen and pelvis, which demonstrated perisplenic abscesses and subcapsular as well and evidence suggestive of diverticulitis in left colon. He has been started on broad spectrum coverage. He denies any headaches, little bit of cough, but not frequently. No sputum production. No nasal symptoms, no sore throat. No back pain. No dyspnea, no genitourinary symptoms. No diarrhea, no constipation, no joint symptoms. No neurological symptoms. PAST MEDICAL HISTORY: Hypertension, dyslipidemia, type 2 diabetes, and anemia. Thus evaluated in the past here at [place] with endoscopy. Last endoscopy was 4 years ago and did not show any abnormalities reportedly. PAST SURGICAL HISTORY: Skin cancer in nose area and cataract surgery. 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 FAMILY HISTORY: Heart disease. ALLERGIES: PENICILLIN with rash. CURRENT MEDICATIONS: DuoNeb, Tylenol, Norvasc, Lipitor, Dulcolax, Pepcid, Feosol, glucagon, insulin, Flagyl, Zofran, vancomycin and levofloxacin. PHYSICAL EXAMINATION: VITAL SIGNS: T-max 99.1, blood pressure 120/58, pulse 88, respirations 18, O2 saturation 98% on 2 liters nasal cannula. SKIN: Shows no abnormalities. Peripheral IV access. No Walker catheter. No lymphadenopathy. HEENT: Ocular movements conjugate. Nasal passages patent. Oral cavity with quite a few teeth in place, quite a bit of decay and gum disease. NECK: Supple. LUNGS: Symmetric clear breath sounds. Diminished breath sounds in the left base. No crackles or wheezing. HEART: S1, S2, regular rate. No S3, S4, no murmurs. ABDOMEN: Soft with no tenderness, little bit distended. Bowel sounds are present, no ascites, no organomegaly, no bladder distention. EXTREMITIES: No joint inflammatory activity. Pulses 1+ in dorsalis pedis and popliteal is 1+. Plantar responses are indifferent. No clonus. Strength in upper and lower extremities is preserved. He is diaphoretic and appears acutely ill, oriented, follows commands, good recollection. LABORATORY DATA: His white cell count 14,000 down to 11, hemoglobin down to 9.4 , MCV normal, platelets 244 with predominance neutrophils on admission. Bands were 14%. Chemistry with sodium 126 and creatinine 0.82. Liver profile normal. Albumin 2.8, globulin 4.6. Two sets of blood cultures thus far negative. Influenza A and B negative. Abdomen and pelvis CT with wall thickening and pericolonic inflammation involving the ascending colon extending up to the splenic flexure. Spiculated soft tissue density in adjacent medial margin of the splenic flexure, which communicates with fluid and gas collection seen in the region of the pancreatic tail, splenic hilum and calcifications within the region of the pancreatic tail and three lenticular shaped hypodensities within the subcapsular region. Inferior pole of the spleen appeared to communicate with the fluid and gas collection seen near the pancreatic tail. ASSESSMENT: 1. Hypertension. 2. Perisplenic intracapsular splenic abscess with extension into the surrounding tissues. 3. Diverticulosis. DISCUSSION: Differential diagnosis includes primary splenic abscess which might have developed due to bacteremia from distant source versus an alternate primary site, for example pancreatitis or diverticulitis with then extending into the spleen. It is more likely that patient has a primary hematogenous splenic/pericapsular abscess which ruptured into the perisplenic region. The areas of extension include left lung/pleural cavity through transdiaphragmatic extension as well as the left descending colon. Primary splenic abscesses are quite rare, evidently extension of diverticulitis through the perisplenic area is quite rare as well. The fact that he has extension into the intracapsular component of the spleen would make believe that it is more likely he had an original intrasplenic abscess which extended into the extracapsular region rather than the opposite route. Typical organisms could include Streptococcus pneumoniae if it is hematogenous. If it is associated with diverticulitis, the usual skinny including gram negative rods and anaerobes are more likely. We will switch him to Rocephin from levofloxacin, or Meropenem. Continue Vancomycin for now. Monitor blood cultures. Submit Streptococcus pneumonia antigen in urine. Check 2D echocardiogram. Conservative management for now with protracted antimicrobial therapy. Place PICC line and remove right IJ catheter to decrease the risk of central line associated bacteremia. Percutaneous drainage does not appear to be an option at this point in time. MTDD
[2018-01-12] MEDS: metroNIDAZOLE 500 MG in Premix Bag 1 BAG IVPB SCH ×3 (09:40→23:11)
[2018-01-12] MEDS: Amlodipine 10 MG TAB PO SCH (09:41)
[2018-01-12] MEDS: Ferrous Sulfate 325 MG TAB PO SCH (09:41)
[2018-01-12] MEDS: Famotidine/PF 20 mg/2ml Vial SLOW IVP SCH ×2 (09:41→21:23)
[2018-01-12] MEDS: Famotidine 20 MG TAB PO SCH ×2 (09:42→21:18)
--- NOTE | 2018-01-12 10:45 | PDOC.PN ---
- Subjective Encounter Start Date: 01/12/18 Encounter Start Time: 09:00 has cough, has pain on posterior aspect of left upper back, no fever feels better - Objective MAR Reviewed: Yes Vital Signs & Weight: Vital Signs (12 hours) Temp Pulse Resp BP BP Pulse Ox 01/12/18 08:35 97.4 F L 93 18 118/56 L 93 L 01/12/18 05:15 91 L 01/12/18 04:00 98.9 F 85 20 137/65 92 L 01/12/18 00:00 98.2 F 93 22 H 145/67 H 91 L Weight Weight 272 lb 3.2 oz I&O: 01/11/18 01/12/18 01/13/18 06:59 06:59 06:59 Intake Total 1080 4064 Output Total 340 1360 Balance 740 2704 Result Diagrams: 01/12/18 04:36 01/12/18 04:36 Additional Labs: Accuchecks 01/12/18 01/12/18 01/11/18 05:39 00:48 16:47 POC Glucose 179 H 183 H 203 H 01/11/18 11:02 POC Glucose 196 H EKG Reviewed by me: Yes Phys Exam - Physical Examination Constitutional: NAD HEENT: PERRLA, moist MMs, sclera anicteric Neck: no JVD, supple Respiratory: no wheezing, no rhonchi reduced air entry at left base and rales Cardiovascular: RRR, no significant murmur, no rub Gastrointestinal: soft, non-tender, no distention, positive bowel sounds obesity+ Musculoskeletal: no edema, pulses present Neurological: non-focal, normal sensation Lymphatic: no nodes Psychiatric: normal affect, A&O x 3 Skin: no rash, normal turgor Dx/Plan (1) Atelectasis Status: Acute (2) Colonic diverticular abscess Code(s): K57.20 - DVTRCLI OF LG INT W PERFORATION AND ABSCESS W/O BLEEDING Status: Acute (3) 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 Code(s): K57.30 - DVRTCLOS OF LG INT W/O PERFORATION OR ABSCESS W/O BLEEDING Status: Acute (4) Hyponatremia Code(s): E87.1 - HYPO-OSMOLALITY AND HYPONATREMIA Status: Acute (5) Left lower lobe pneumonia Code(s): J18.1 - LOBAR PNEUMONIA, UNSPECIFIED ORGANISM Status: Acute (6) Parapneumonic effusion Code(s): J18.9 - PNEUMONIA, UNSPECIFIED ORGANISM; J91.8 - PLEURAL EFFUSION IN OTHER CONDITIONS CLASSIFIED ELSEWHERE Status: Acute (7) Sepsis Code(s): A41.9 - SEPSIS, UNSPECIFIED ORGANISM Status: Acute (8) Anemia, normocytic normochromic Code(s): D64.9 - ANEMIA, UNSPECIFIED Status: Chronic (9) Diabetes type 2, controlled Code(s): E11.9 - TYPE 2 DIABETES MELLITUS WITHOUT COMPLICATIONS Status: Chronic (10) Dyslipidemia Code(s): E78.5 - HYPERLIPIDEMIA, UNSPECIFIED Status: Chronic (11) Hypertension Code(s): I10 - ESSENTIAL (PRIMARY) HYPERTENSION Status: Chronic (12) Morbid obesity with BMI of 40.0-44.9, adult Code(s): E66.01 - MORBID (SEVERE) OBESITY DUE TO EXCESS CALORIES; Z68.41 - BODY MASS INDEX (BMI) 40.0-44.9, ADULT Status: Chronic - Plan cont current plan of care, continue antibiotics * DC tele * transfer to medical * continue antibiotics as ordered * today PICC line * 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 Review of Systems - Review of Systems Eyes: negative: Pain, Vision Change, Conjunctivae Inflammation, Eyelid Inflammation, Redness, Other Respiratory: Cough. negative: Dry, Shortness of Breath, Hemoptysis, SOB with Excertion, Pleuritic Pain, Sputum, Wheezing Cardiovascular: negative: chest pain, palpitations, orthopnea, paroxysmal nocturnal dyspnea, edema, light headedness, other Gastrointestinal: negative: Nausea, Vomiting, Abdominal Pain, Diarrhea, Constipation, Melena, Hematochezia, Other Genitourinary: negative: Dysuria, Frequency, Incontinence, Hematuria, Retention , Other Musculoskeletal: negative: Neck Pain, Shoulder Pain, Arm Pain, Back Pain, Hand Pain, Leg Pain, Foot Pain, Other Skin: negative: Rash, Lesions, Saeid, Bruising, Other - Medications/Allergies Allergies/Adverse Reactions: Allergies Allergy/AdvReac Type Severity Reaction Status Date / Time Penicillins Allergy Verified 01/10/18 23:21 Medications: Current Medications Acetaminophen (Tylenol) 650 mg NV Q4H PRN PRN Reason: Headache/Fever or Pain Acetaminophen (Tylenol) 650 mg PO Q4H PRN PRN Reason: Headache/Fever or Pain Albuterol/Ipratropium (Duoneb) 3 ml NEB Q4H PRN PRN Reason: Wheezing Amlodipine Besylate (Norvasc) 10 mg PO DAILY [facility] Last Admin: 01/12/18 09:41 Dose: 10 mg Atorvastatin Calcium (Lipitor) 20 mg PO HS [facility] Last Admin: 01/11/18 21:32 Dose: 20 mg Bisacodyl (Dulcolax) 10 mg PO DAILYPRN PRN PRN Reason: Constipation Dextrose/Water (Dextrose 50%) 25 gm SLOW IVP PRN PRN PRN Reason: Hypoglycemia Famotidine (Pepcid) 20 mg PO Q12HR [facility] Last Admin: 01/12/18 09:42 Dose: Not Given Famotidine (Pepcid) 20 mg SLOW IVP Q12HR [facility] Last Admin: 01/12/18 09:41 Dose: 20 mg Ferrous Sulfate (Feosol) 325 mg PO DAILY [facility] Last Admin: 01/12/18 09:41 Dose: 325 mg Glucagon (Glucagon) 1 mg IM PRN PRN PRN Reason: Hypoglycemia Hydralazine HCl (Apresoline) 10 mg SLOW IVP Q4H PRN PRN Reason: SBP > 170 or DBP > 100 Dextrose/Water (D5w) 1,000 mls @ 0 mls/hr IV .Q0M PRN; As Directed PRN Reason: Hypoglycemia Metronidazole 500 mg/ Device 100 mls @ 100 mls/hr IVPB 0800,1600,2359 [facility] Last Admin: 01/12/18 09:40 Dose: 100 mls Sodium Chloride (Normal Saline 0.9%) 1,000 mls @ 110 mls/hr IV .Q9H6M [facility] Last Admin: 01/12/18 02:31 Dose: 1,000 mls Vancomycin HCl 1.75 gm/ Sodium (Chloride) 500 mls @ 333.333 mls/hr IVPB 0500, 1700 [facility] Last Admin: 01/12/18 05:18 Dose: 500 mls Insulin Human Lispro (Humalog) 0 units SC .MILD SLIDING SCALE PRN PRN Reason: Mild Correctional Scale Levofloxacin (Levaquin) 500 mg IVPB Q24HR [facility] Last Admin: 01/11/18 23:15 Dose: 500 mg Morphine Sulfate (Morphine) 2 mg SLOW IVP Q2H PRN PRN Reason: Moderate Pain (4-6) Morphine Sulfate (Morphine) 4 mg SLOW IVP Q2H PRN PRN Reason: Severe Pain (7-10) Last Admin: 01/11/18 12:55 Dose: 4 mg Nitroglycerin (Nitrostat) 0.4 mg SL Q5MIN PRN PRN Reason: Chest Pain Ondansetron HCl (Zofran) 4 mg IVP Q6H PRN PRN Reason: Nausea/Vomiting Last Admin: 01/11/18 08:09 Dose: 4 mg Ondansetron HCl (Zofran) 4 mg IVP Q6H PRN PRN Reason: Nausea/Vomiting Promethazine HCl (Phenergan) 12.5 mg IM Q4H PRN PRN Reason: Nausea/Vomiting Senna (Senokot) 2 tab PO HSPRN PRN PRN Reason: Constipation Sodium Chloride (Flush - Normal Saline) 10 ml IVF PRN PRN PRN Reason: Saline Flush
--- NOTE | 2018-01-12 11:26 | PRG ---
DATE OF SERVICE: 01/12/2018 SUBJECTIVE: Mr. Dickey feels better today after his thoracentesis. Shortness of breath has improved . Abdominal pain is minimal. No nausea or vomiting. PHYSICAL EXAMINATION: VITAL SIGNS: He is afebrile. Vital signs are stable. ABDOMEN: Soft, mildly tender in the left upper quadrant and left flank without rebound. LABORATORY DATA: White blood cell count is 12, hemoglobin 9.7. Sodium 128, potassium 3.8 and creati nine 1.09. ASSESSMENT: Left upper quadrant diverticulitis with phlegmon with associated left pleural effusion s tatus post drainage. PLAN: Continue antibiotics. We will allow clear liquids. Likely can be discharged home on outpatie nt antibiotics in the next few days.
--- NOTE | 2018-01-12 11:32 | CON ---
DATE OF CONSULTATION: 01/11/2018 REASON FOR CONSULTATION: Diverticulitis. HISTORY OF PRESENT ILLNESS: Mr. Dickey is a 67-year-old gentleman who was admitted to the hospital w ith diverticulitis yesterday or early this morning. He reports that he became ill about 2 weeks ago. He began to have fever around 12/26/2017. 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 Ultimately, the fever returned and he went to see his primary physician, but could not get i nto, so went to [facility] urgent care where he was told he might have the virus. A flu test was negative. He was given some antibiotics and released. Ultimately, he began to have worsening sympto ms at some point along the line, he developed abdominal pain in the left abdomen. He was having swea ts early on even to the point of soaking the bed. Therefore, he went to the emergency room in [facility] yesterday and there had a pleural effusion on chest x-ray, possible pneumonia as well as mildly el evated D-dimer. He was transferred here and because of the D-dimer, he underwent a CAT scan of the c hest which showed pulmonary embolism. This showed an effusion with pneumonia and possible splenic le sophie concerning for abscess. At that time, he underwent a CAT scan of the abdomen and pelvis, which showed multiple perisplenic abscess, subcapsular splenic abscess what appeared to be diverticulitis. The patient has been started on broad spectrum antibiotics. He has been evaluated by General Surger y, who feels the left upper quadrant lesion is more of a phlegmon and he has been on observation. In talking with the patient, he has had no prior episodes of diverticulitis, he has had no prior stomac h problems, whatsoever. He did have about 5 years ago some iron deficiency anemia and underwent uppe r and lower endoscopy here at this hospital by Dr. Vj Macias, which were normal. He had an x-ray of the small intestine, which was normal. He has been on iron ever since and has done fine. Presen tly, he feels a little better. He still does have a cough and is mildly short of breath. He does sa y he has some left upper quadrant pain and some left scapular pain as well. He has had scant bowel m ovements. He is on just ice chips presently as far as diet goes. PAST MEDICAL HISTORY: Notable for history of microcytic anemia in 03/2013 when he had upper and lowe r endoscopy, which were normal except for mild esophagitis and a few scattered diverticula, history o f mild hypertension, dyslipidemia, and diabetes. PAST SURGICAL HISTORY: Basal cell skin carcinoma of the nose, cataract surgery, tonsillectomy and pr evious endoscopies. PSYCHIATRIC HISTORY: Negative. 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 Does not smoke, drink or use drugs. FAMILY HISTORY: Notable for colon cancer in the family. ALLERGIES: PENICILLIN. CURRENT MEDICATIONS: Amlodipine, atorvastatin, iron, lisinopril, metformin, Onglyza, Farxiga. PRESENT MEDICATIONS: Tylenol, DuoNeb, Norvasc, Lipitor, Dulcolax, Pepcid, iron, glucagon, Humalog, L evaquin, Flagyl, morphine p.r.n., normal saline at 100 an hour. PHYSICAL EXAMINATION: GENERAL: The patient is a little bit overweight. He is a little bit uncomfortable. He is mildly pa le, slightly sweaty. VITAL SIGNS: He has got a temperature of 99.2-99 here, his blood pressure is 139/65, respirations 18 , pulse 83. HEENT: Oropharynx without lesions. NECK: Supple without any adenopathy. LUNGS: Clear except for decreased breath sounds at the left side. HEART: Has a regular rate and rhythm. ABDOMEN: Soft, mildly tender in left lower quadrant. There is no rebound. There is no guarding. EXTREMITIES: No clubbing, cyanosis or edema. SKIN: Without rash or lesions. LABORATORY DATA: White count was 14,000 last time and 11,000 today, hemoglobin is 9.4, it was 12.9 o n . His MCV is 83, platelet count is 244. INR 1. Comprehensive metabolic profile yesterday, s odium was 125, potassium 3.4, BUN and creatinine are 15 and 0.82, glucose 158, calcium 8.5. Liver fu nction tests normal. Total protein 7.4, albumin is 2.8, globulin 4.6. RADIOLOGY: Chest x-ray shows left-sided effusion. CT scan of abdomen and pelvis shows some abscesse s in the liver, air fluid level in the liver hilum. Radiologist felt there is a fluid and gas collec tion with recent pancreatic and splenic hilum, which was in conjunction with thickening in the splenic flexure of the colon, some subcapsular fluid collections in the spleen and also some perisple be abscesses. There is also some thickening in the pericolonic inflammations suspicious for colitis in the ascending colon. There are also some changes of airspace consolidation in the left lower lilly g with pneumonia with possible parapneumonic effusion. ASSESSMENT: This is a 67-year-old gentleman. He is quite ill, who has been sick for 2 weeks, initia lly had fever and some low grade cough. At outside facility, he was thought to have a viral illness and somewhere along the line, he developed abdominal pain become worse. He has got a left-side d effusion, a consolidated left lower lung with possible pneumonia. Radiologist felt there was possi cristin a parapneumonic effusion and also that there was an area splenic abscesses, affected mass in the area of the splenic flexure involving some of the colon, spleen and pancreas area. Less likely, this is intraabdominal infection with reactive effusion; however, with the pneumonia findings in the left lower lung, possibly parapneumonic effusion needs to be considered as well. As far as the lesion in the upper abdomen, it is very atypical for diverticulitis to cause a splenic abscesses and it is unc lear if the origin of the abdominal infection is from the colon or pancreas, the splenic flexur e diverticulitis is a little bit atypical as well. Possibility of the malignancy cannot be ruled out , although he had a normal colonoscopy in 2013. RECOMMENDATIONS: 1. Agree with present antibiotics. 2. We would consult Pulmonary Medicine to make sure they do not think this effusion need to be tappe d in case it is a parapneumonic effusion. 3. See how he progresses, I will discuss the case with General Surgery. We will go ahead and get a CEA, even though he had a normal colonoscopy 5 years ago. Some of the changes seen are concerning __ ___ does not appear to be a straight forward diverticulitis case. At this point in time, he is not a candidate for colonoscopy. We will need to check a lipase to see if there is any pancreatic inflamm ation. We will follow along with you.
--- NOTE | 2018-01-12 11:44 | SPC ---
LEFT PICC LINE WITH ULTRASOUND GUIDANCE: HISTORY: Colitis. Infection. COMPARISON: None. EXPOSURE: One minute. [id number] mGy*^cm2. FINDINGS: Technically successful left upper extremity PICC line placement with ultrasound guidance. Trimmed le ngth is 49 cm. Dual-lumen 5 Turkmen catheter terminates in the right atrium. Both lumens flush and a spirate without difficulty. TECHNIQUE: Consent obtained to perform an ultrasound-guided PICC line of the left upper extremity. The patient' s left arm was prepped and draped in sterile fashion. 1% Lidocaine, buffered with sodium bicarbonate , was used for local anesthesia. Under ultrasound guidance, a micropuncture needle was used to cannu late the basilic vein. A 0.018 guidewire was advanced through the needle to the level of the superio r vena cava. Under fluoroscopy, the wire was advanced to the inferior vena cava to document venous a ccess. The wire was subsequently pulled back to the right atrium. The tract was dilated. Dual-lume n 5 Turkmen catheter was advanced over the wire. Both lumens flush and aspirate without difficulty. The catheter was secured to the patient. The patient tolerated the procedure well. No immediate or post procedure complications. There does appear to be a linear opacity in the right hemithorax, likely representing a small amount of fluid tracking along the minor fissure. IMPRESSION: Successful left upper extremity PICC line placement. POS: [facility]
--- NOTE | 2018-01-12 11:59 | PRG ---
DATE OF SERVICE: 01/12/2018 SERVICE: Pulmonary Medicine INTERVAL HISTORY: The patient is doing outstanding from a cardiovascular and respiratory standpoint. He is breathing comfortably. He says that the thoracentesis helped him a little bit yesterday. Ot herwise, there has been no interval change to his condition. PHYSICAL EXAMINATION: VITAL SIGNS: Afebrile, pulse 93, blood pressure 118/56, respirations 18, saturation 93% on room air. GENERAL: The patient is awake, alert, in no apparent distress. LUNGS: Decent air entry. There is still some crackles present in the left base. HEART: Normal rate, regular. ABDOMEN: Soft, nontender, nondistended. Bowel sounds are positive. MUSCULOSKELETAL: No cyanosis or clubbing. There is no pitting in the bilateral lower extremities. NEUROLOGIC: Grossly nonfocal. LABORATORY DATA: WBC 12.1, hemoglobin 9.7, platelets 330,000. Neutrophil count is hovering at 87%. Sodium 128 and up trending. Basic metabolic profile is otherwise unremarkable. CEA is negative. L iver function studies are unremarkable. Blood sugar ranges from 179-203. Blood cultures x2, and bod y fluid culture remains negative to date. Influenza A and B is negative. ASSESSMENT: 1. Community-acquired pneumonia. 2. Uncomplicated parapneumonic pleural effusion. 3. Splenic abscesses, suspected. PLAN: The thoracentesis fluid is consistent with an uncomplicated parapneumonic effusion. As such, we will continue to monitor this thing through time. He will need a repeat chest x-ray in 2-3 days, and in 6 weeks to verify the infiltrate resolves. Empiric antibiotics will be continued for the time being. Pulmonary will continue to follow for now.
[2018-01-12 16:51] LABS: Vancomycin, Trough 21.4 ug/mL
[2018-01-12] MEDS: Vancomycin HCl 1.5 GM in Sodium Chloride 0.9% 250 ML 300 ML IVPB SCH (18:14)
[2018-01-12] MEDS: Atorvastatin Calcium 20 MG TAB PO SCH (21:11)
[2018-01-12] MEDS: Levofloxacin 500 mg/D5W 100 ml Premix Bag IVPB SCH (23:10)
--- NOTE | 2018-01-12 23:49 | PRG ---
DATE OF SERVICE: 01/12/2018 SUBJECTIVE: Sitting up in bed. He had a thoracentesis yesterday and feels better after the procedur e. Breathing better. No cough, less abdominal pain or actually more like flank pain and chest wall pain. Voiding without difficulty. No change in neurological status. OBJECTIVE: VITAL SIGNS: He has been afebrile since admission. Other vital signs are stable. Slight elevation in systolic blood pressure. GENERAL: Appears better than yesterday. He is alert, not diaphoretic. LUNGS: With diminished breath sounds in the left side. HEART: S1, S2, regular rate. ABDOMEN: Moderately distended, but not tender. LABORATORY DATA: White cell count is 12,000, hemoglobin 9.7, platelets 330. Creatinine 1.09 with no rmal liver profile, albumin 2.6, globulin 4.6. The thoracentesis fluid with 6580 wbc's with a predom inance of mature neutrophils. LDH 264. A pH 7.336, protein 5.0, amylase less than 30. Microbiology , we have no organisms seen, wbc's seen, no growth at 12 hours. Two sets of blood cultures thus far no growth. I have a pathology pending. ASSESSMENT AND DISCUSSION: Hypertension, perisplenic intracapsular splenic abscess with extension laws rrounding tissues, diverticulosis. Again, possibility of a primary splenic abscess with extension in to the perisplenic area is a possibility secondary to bacteremia or an inverse route with an alternat e primary site such as diverticulitis or pancreatitis then extending into the spleen, which I believe is less likely. There has been extension to the left diaphragmatic lesion to the left thoracic spac e with an exudative pleural effusion. He is currently receiving levofloxacin, Flagyl, and vancomycin . The organisms typically associated with this kind of splenic process including Streptococcus pneum oniae, Staphylococcus aureus, gram negative rods are the most likely pathogens. It looks like we are going to continue with conservative management. We will wait for the pathology of the fluid. PICC line will be necessary.
[2018-01-13] MEDS: Vancomycin HCl 1.5 GM in Sodium Chloride 0.9% 250 ML 300 ML IVPB SCH ×2 (05:50→17:59)
[2018-01-13] MEDS: Sodium Chloride 0.9% 1,000 ML IV SCH ×2 (05:52→14:36)
--- NOTE | 2018-01-13 08:23 | RAD ---
TWO VIEWS OF THE CHEST: Comparison: 01-09-18, CTA chest 01-10-18 History: Status post thoracentesis. Pneumonia. FINDINGS: Single view of the chest shows an enlarged cardiomediastinal silhouette. The patient has a left upper extremity PICC line. There is a large left pleural effusion. Opacity is seen in the left apex which could represent a left apical mass. No pneumothorax is seen. IMPRESSION: 1. Large left pleural effusion. 2. Possible left apical mass. This may also represent a loculated effusion in the left apex. POS: [facility]
[2018-01-13 08:24] LABS: Anion Gap 11 mmol/L (10-20); BUN (Urea Nitrogen) 14 mg/dL (8.4-25.7); Calc. Creatinine Clearance 111 mL/min (70-130); Calcium 8.3 mg/dL (7.8-10.44); Carbon Dioxide 20 mmol/L (23-31); Chloride 103 mmol/L (98-107); Estimated GFR-MDRD 63; Glucose 222 mg/dL (80-115); Potassium 3.8 mmol/L (3.5-5.1); Sodium 130 mmol/L (136-145)
[2018-01-13 08:46] LABS: #Eosinphils 0.1 thou/uL (0.0-0.7); #Lymphocytes 0.4 thou/uL (1.20-3.40); #Monocytes 1.2 thou/uL (0.11-0.59); %Basophils 0.2 % (0.0-1.0); %Eosinophils 0.8 % (0.0-10.0); %Lymphocytes 2.7 % (21.0-51.0); %Neutrophils 87.3 % (42.0-75.0); Hemoglobin 9.6 g/dL (14.0-18.0); Mean Corpuscular HGB CONC 34.2 g/dL (32.0-36.0); Mean Corpuscular Hemoglobin 28.7 pg (27.0-31.0); Mean Corpuscular Volume 83.9 fl (80.0-94.0); Mean Platelet Volume 7.7 fL (7.4-10.4); Platelet Count 384 thou/uL (130-400); RBC Distribution Width 13.9 % (11.5-14.5); Red Blood Cell (RBC) Count 3.36 mill/uL (4.70-6.10); White Blood Cell (WBC) Count 13.7 thou/uL (4.8-10.8)
[2018-01-13] MEDS: Amlodipine 10 MG TAB PO SCH (09:13)
[2018-01-13] MEDS: Ferrous Sulfate 325 MG TAB PO SCH (09:13)
[2018-01-13] MEDS: metFORMIN 500 MG TAB PO SCH ×2 (09:13→17:57)
[2018-01-13] MEDS: Famotidine 20 MG TAB PO SCH ×2 (09:13→21:18)
[2018-01-13] MEDS: metroNIDAZOLE 500 MG in Premix Bag 1 BAG IVPB SCH (09:14)
--- NOTE | 2018-01-13 10:02 | PRG ---
DATE OF SERVICE: 01/13/2018 SERVICE: Pulmonary Medicine. INTERVAL HISTORY: The patient is doing fine from a respiratory standpoint. His breathing is much more comfortable. He denies any chest pain, nausea, vomiting or shortness of breath when resting. When he exerts himself, he tends to better with oxygen. PHYSICAL EXAMINATION: VITAL SIGNS: Afebrile, pulse 89, blood pressure 131/68, respirations 20, saturation 95% on 2 liters nasal cannula. GENERAL: The patient is awake, alert, in no apparent distress. LUNGS: Excellent air entry on the right. There is no prolonged expiratory phase or wheezing. He has got no air movement on the left. HEART: Normal rate, regular. ABDOMEN: Soft, nontender, nondistended. Bowel sounds are positive. MUSCULOSKELETAL: No cyanosis or clubbing. There is no pitting in the bilateral lower extremities. NEUROLOGIC: Grossly nonfocal. LABORATORY DATA: WBC 13.7, hemoglobin 9.6 and stable, platelets 384,000. Creatinine 1.16 and stable. Basic metabolic profile is otherwise improving/ unremarkable. Specifically bicarbonate and sodium returning to the normal range. Culture results remain negative to date. IMAGING: Chest x-ray demonstrates interval enlargement of the left-sided pleural effusion following thoracentesis 2 days ago. ASSESSMENT: 1. Community-acquired pneumonia. 2. Acute hypoxic respiratory failure. 3. Previously uncomplicated parapneumonic pleural effusion. 4. Splenic abscesses, multiple. DISCUSSION AND PLAN: The patient has had increase in the pleural effusion. The fluid that pulled off was a cloudy yellow color. There was not any blood to it, so I am doubtful this represents hemothorax. It is probably progression of his underlying infectious process. My fear is that he may have converted into a complicated parapneumonic effusion and/or empyema. We will look with ultrasound. If we see clean margins once again, repeat thoracentesis will be performed. If on the other hand, there is evidence of loculation setting up, we will likely call thoracic surgery to help us clean the space out. Pulmonary will continue to follow closely. MARTINEZ
--- NOTE | 2018-01-13 12:25 | PDOC.PN ---
- Subjective Encounter Start Date: 01/13/18 Encounter Start Time: 07:45 Patient seen and examined. No new complaints. No overnight events has some but reduced abdominal pain, has cough, has dyspnea - Objective MAR Reviewed: Yes Vital Signs & Weight: Vital Signs (12 hours) Temp Pulse Resp BP Pulse Ox 01/13/18 09:13 89 121/65 01/13/18 08:00 98.1 F 89 17 93 L Weight Weight 272 lb 3.2 oz I&O: 01/12/18 01/13/18 01/14/18 06:59 06:59 06:59 Intake Total 4064 2860 Output Total 1360 850 Balance 2704 2009 Result Diagrams: 01/13/18 08:33 01/13/18 07:44 Additional Labs: Accuchecks 01/13/18 01/13/18 01/12/18 11:20 04:47 20:33 POC Glucose 254 H 198 H 242 H 01/12/18 17:12 POC Glucose 198 H Radiology Reviewed by me: Yes (chest xray- increase effusion on left) Phys Exam - Physical Examination Constitutional: NAD HEENT: PERRLA, moist MMs, sclera anicteric Neck: no JVD, supple Respiratory: wheezing present reduced air entry left side, Cardiovascular: RRR, no significant murmur, no rub Gastrointestinal: soft, no distention, positive bowel sounds mild tenderness LUQ Musculoskeletal: no edema, pulses present Neurological: non-focal, normal sensation, moves all 4 limbs Lymphatic: no nodes Psychiatric: normal affect, A&O x 3 Skin: no rash, normal turgor Dx/Plan (1) Atelectasis Status: Acute (2) Colonic diverticular abscess Code(s): K57.20 - DVTRCLI OF LG INT W PERFORATION AND ABSCESS W/O BLEEDING Status: Acute (3) 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 Code(s): K57.30 - DVRTCLOS OF LG INT W/O PERFORATION OR ABSCESS W/O BLEEDING Status: Acute (4) Hyponatremia Code(s): E87.1 - HYPO-OSMOLALITY AND HYPONATREMIA Status: Acute (5) Left lower lobe pneumonia Code(s): J18.1 - LOBAR PNEUMONIA, UNSPECIFIED ORGANISM Status: Acute (6) Parapneumonic effusion Code(s): J18.9 - PNEUMONIA, UNSPECIFIED ORGANISM; J91.8 - PLEURAL EFFUSION IN OTHER CONDITIONS CLASSIFIED ELSEWHERE Status: Acute (7) Sepsis Code(s): A41.9 - SEPSIS, UNSPECIFIED ORGANISM Status: Acute (8) Anemia, normocytic normochromic Code(s): D64.9 - ANEMIA, UNSPECIFIED Status: Chronic (9) Diabetes type 2, controlled Code(s): E11.9 - TYPE 2 DIABETES MELLITUS WITHOUT COMPLICATIONS Status: Chronic (10) Dyslipidemia Code(s): E78.5 - HYPERLIPIDEMIA, UNSPECIFIED Status: Chronic (11) Hypertension Code(s): I10 - ESSENTIAL (PRIMARY) HYPERTENSION Status: Chronic (12) Morbid obesity with BMI of 40.0-44.9, adult Code(s): E66.01 - MORBID (SEVERE) OBESITY DUE TO EXCESS CALORIES; Z68.41 - BODY MASS INDEX (BMI) 40.0-44.9, ADULT Status: Chronic - Plan cont current plan of care, plan discussed w/ family, continue antibiotics, respiratory therapy, incentive spirometry, DVT proph w/lovenox * his left sided pleural effusion is increasing, pulmonary on case, he may need repeat thoracentesis, he has loculated effusion on left apex, he may need CT surgeon but will defer that part to pulmonary * continue levaquin, vancomycin and flagyl * diet advancement will defer to surgeon * medication reviewed as below * symptomatic treatment * discussed with son * follow culture * repeat labs . Review of Systems - Review of Systems Constitutional: negative: fever, chills, sweats, weakness, malaise, other Eyes: negative: Pain, Vision Change, Conjunctivae Inflammation, Eyelid Inflammation, Redness, Other ENT: negative: Ear Pain, Ear Discharge, Nose Pain, Nose Discharge, Nose Congestion, Mouth Pain, Mouth Swelling, Throat Pain, Throat Swelling, Other Respiratory: Cough, Shortness of Breath. negative: Dry, Hemoptysis, SOB with Excertion, Pleuritic Pain, Sputum, Wheezing Cardiovascular: negative: chest pain, palpitations, orthopnea, paroxysmal nocturnal dyspnea, edema, light headedness, other Gastrointestinal: Abdominal Pain. negative: Nausea, Vomiting, Diarrhea, Constipation, Melena, Hematochezia, Other Genitourinary: negative: Dysuria, Frequency, Incontinence, Hematuria, Retention , Other Musculoskeletal: negative: Neck Pain, Shoulder Pain, Arm Pain, Back Pain, Hand Pain, Leg Pain, Foot Pain, Other Skin: negative: Rash, Lesions, Saeid, Bruising, Other Neurological: negative: Weakness, Numbness, Incoordination, Change in Speech, Confusion, Seizures, Other - Medications/Allergies Allergies/Adverse Reactions: Allergies Allergy/AdvReac Type Severity Reaction Status Date / Time Penicillins Allergy Verified 01/10/18 23:21 Medications: Current Medications Acetaminophen (Tylenol) 650 mg PO Q4H PRN PRN Reason: Headache/Fever or Pain Albuterol/Ipratropium (Duoneb) 3 ml NEB Q4H PRN PRN Reason: Wheezing Amlodipine Besylate (Norvasc) 10 mg PO DAILY [facility] Last Admin: 01/13/18 09:13 Dose: 10 mg Atorvastatin Calcium (Lipitor) 20 mg PO HS [facility] Last Admin: 01/12/18 21:11 Dose: 20 mg Bisacodyl (Dulcolax) 10 mg PO DAILYPRN PRN PRN Reason: Constipation Dextrose/Water (Dextrose 50%) 25 gm SLOW IVP PRN PRN PRN Reason: Hypoglycemia Famotidine (Pepcid) 20 mg PO Q12HR [facility] Last Admin: 01/13/18 09:13 Dose: 20 mg Ferrous Sulfate (Feosol) 325 mg PO DAILY [facility] Last Admin: 01/13/18 09:13 Dose: 325 mg Glucagon (Glucagon) 1 mg IM PRN PRN PRN Reason: Hypoglycemia Hydralazine HCl (Apresoline) 10 mg SLOW IVP Q4H PRN PRN Reason: SBP > 170 or DBP > 100 Dextrose/Water (D5w) 1,000 mls @ 0 mls/hr IV .Q0M PRN; As Directed PRN Reason: Hypoglycemia Sodium Chloride (Normal Saline 0.9%) 1,000 mls @ 110 mls/hr IV .Q9H6M [facility] Last Admin: 01/13/18 05:52 Dose: 1,000 mls Vancomycin HCl 1.5 gm/ Sodium (Chloride) 300 mls @ 200 mls/hr IVPB 0600,1800 [facility] Last Admin: 01/13/18 05:50 Dose: 300 mls Meropenem 1 gm/ Sodium (Chloride) 100 mls @ 200 mls/hr IVPB Q8HR [facility] Insulin Human Lispro (Humalog) 0 units SC .MILD SLIDING SCALE PRN PRN Reason: Mild Correctional Scale Metformin HCl (Glucophage) 1,000 mg PO BID-WM [facility] Last Admin: 01/13/18 09:13 Dose: 1,000 mg Morphine Sulfate (Morphine) 2 mg SLOW IVP Q2H PRN PRN Reason: Moderate Pain (4-6) Morphine Sulfate (Morphine) 4 mg SLOW IVP Q2H PRN PRN Reason: Severe Pain (7-10) Last Admin: 01/11/18 12:55 Dose: 4 mg Nitroglycerin (Nitrostat) 0.4 mg SL Q5MIN PRN PRN Reason: Chest Pain Ondansetron HCl (Zofran) 4 mg IVP Q6H PRN PRN Reason: Nausea/Vomiting Last Admin: 01/11/18 08:09 Dose: 4 mg Ondansetron HCl (Zofran) 4 mg IVP Q6H PRN PRN Reason: Nausea/Vomiting Promethazine HCl (Phenergan) 12.5 mg IM Q4H PRN PRN Reason: Nausea/Vomiting Senna (Senokot) 2 tab PO HSPRN PRN PRN Reason: Constipation Sodium Chloride (Flush - Normal Saline) 10 ml IVF PRN PRN PRN Reason: Saline Flush
[2018-01-13] MEDS: HumaLOG 300 UNITS/3 ML VIAL SC PRN ×2 (12:31→17:58)
[2018-01-13] MEDS: Meropenem 1 GM in Sodium Chloride 0.9% 100 ML IVPB SCH ×2 (14:36→21:19)
--- NOTE | 2018-01-13 14:57 | OP ---
DATE OF PROCEDURE: 01/11/2018 SERVICE: Pulmonary Medicine. PROCEDURE: Left-sided pleural drainage with catheter insertion under ultrasound guidance. CONSENT: The risks and benefits of this procedure were explained to the patient. All questions were answered and alternative options explained. STAFF PHYSICIAN: Bassam Anaya M.D. MEDICATIONS USED: Lidocaine 1% without epinephrine, a total quantity 10 mL. PREOPERATIVE DIAGNOSES: 1. Severe sepsis. 2. Pleural effusion. POSTOPERATIVE DIAGNOSES: 1. Severe sepsis. 2. Pleural effusion. DESCRIPTION OF PROCEDURE: A timeout was performed by the procedure team and patient. The patient wa s positively identified using name and date of . The procedure site was marked. Vital sign mon itoring was accomplished by noninvasive hemodynamic monitoring, pulse oximetry and telemetry. In the seated position, left posterior hemithorax was examined using ultrasound probe. The diaphragm pleural fluid was easily identified. The skin was prepped and draped in sterile fashion and anesthe tized with 1% lidocaine without epinephrine. A finder needle was inserted in the pleural space with return of cloudy yellow pleural fluid. A pleural drainage catheter was then inserted in the same loc ation. A total quantity of 600 mL of the same cloudy yellow pleural fluid was withdrawn by syringe p ump technique. A sample was sent for analysis. Evacuation of fluid was terminated because he starte d having pleuritic type chest discomfort. At the end of the procedure, the estimated pleural pressur e, measured by manometry was -12 cm of pleural fluid. The intact catheter was withdrawn on exhalatio n and a sterile dressing was applied. The patient has stable vitals throughout the entire procedure. ESTIMATED BLOOD LOSS: Two milliliters. COMPLICATIONS: None.
[2018-01-13] MEDS ORDERED: Lidocaine 1% (PF) 30 ML VIAL SC SCH (16:45)
[2018-01-13 19:27] LABS: BF Color Yellow; Body Fluid Source THORACENTESIS FLD
[2018-01-13 19:28] LABS: BF RBC Count - Manual 770 /cumm; WBC/NonHematic-Auto 1460 /cumm
[2018-01-13 20:06] LABS: BF Segmented Neutrophils 87 %; Cell Count Non Hematic 2 %; Lymphocytes 11 %
[2018-01-13] MEDS: Atorvastatin Calcium 20 MG TAB PO SCH (21:17)
[2018-01-13] MEDS: Acetaminophen 325 MG TAB PO PRN (21:18)
[2018-01-14] MEDS: Sodium Chloride 0.9% 1,000 ML IV SCH ×3 (02:22→16:54)
[2018-01-14] MEDS: Meropenem 1 GM in Sodium Chloride 0.9% 100 ML IVPB SCH ×3 (05:03→21:10)
[2018-01-14 05:47] LABS: Vancomycin, Trough 25.1 ug/mL
[2018-01-14 07:16] LABS: #Eosinphils 0.2 thou/uL (0.0-0.7); #Lymphocytes 0.4 thou/uL (1.20-3.40); #Monocytes 0.9 thou/uL (0.11-0.59); #Neutrophils 10.7 thou/uL (1.40-6.50); %Basophils 0.3 % (0.0-1.0); %Eosinophils 1.8 % (0.0-10.0); %Lymphocytes 3.3 % (21.0-51.0); %Monocytes 7.7 % (0.0-10.0); %Neutrophils 86.9 % (42.0-75.0); Hemoglobin 9.7 g/dL (14.0-18.0); Mean Corpuscular HGB CONC 33.5 g/dL (32.0-36.0); Mean Corpuscular Hemoglobin 28.9 pg (27.0-31.0); Mean Corpuscular Volume 86.4 fl (80.0-94.0); Mean Platelet Volume 7.7 fL (7.4-10.4); Platelet Count 421 thou/uL (130-400); RBC Distribution Width 14.1 % (11.5-14.5); Red Blood Cell (RBC) Count 3.36 mill/uL (4.70-6.10); White Blood Cell (WBC) Count 12.3 thou/uL (4.8-10.8)
[2018-01-14 07:24] LABS: Anion Gap 13 mmol/L (10-20); BUN (Urea Nitrogen) 9 mg/dL (8.4-25.7); Calc. Creatinine Clearance 127 mL/min (70-130); Calcium 8.1 mg/dL (7.8-10.44); Carbon Dioxide 20 mmol/L (23-31); Chloride 102 mmol/L (98-107); Estimated GFR-MDRD 74; Glucose 146 mg/dL (80-115); Potassium 3.5 mmol/L (3.5-5.1); Sodium 131 mmol/L (136-145)
[2018-01-14] MEDS: Ferrous Sulfate 325 MG TAB PO SCH (08:21)
[2018-01-14] MEDS: Famotidine 20 MG TAB PO SCH ×2 (08:22→20:19)
[2018-01-14] MEDS: metFORMIN 500 MG TAB PO SCH ×2 (08:22→16:53)
[2018-01-14] MEDS: Amlodipine 10 MG TAB PO SCH (08:22)
--- NOTE | 2018-01-14 09:43 | PRG ---
DATE OF SERVICE: 01/13/2018 SUBJECTIVE: Mr. Dickey is having recrudescence of his breathing problems and pain. Dr. Anaya is g oing to assess the area with ultrasound later today. No headaches, mild dyspnea. No abdominal pain, no diarrhea. No neurological symptoms. OBJECTIVE: VITAL SIGNS: T-max 98.1, blood pressure 120/65, pulse 89, respirations 17, O2 sat is at 93%. GENERAL: Appears unwell this morning, oriented, alert. HEENT: Ocular movements conjugate. Marked diminished breath sounds in the left hemithorax compared to the right. No wheezing or crackles. CARDIOVASCULAR: S1, S2, regular rate. ABDOMEN: Moderately distended, but not tender. No ascites. No bladder distention. NEUROLOGIC: Nonfocal. LABORATORY DATA: White cell count 13.7, hemoglobin 9.6, platelets 384, creatinine 1.16, vancomycin t rough 21.4. The patient had a catheter insertion under ultrasound, cloudy yellow pleural fluid was r emoved and then 600 mL of cloudy yellow pleural fluid withdrawn. This is the procedure done on 01/11. Cultures from the fluid are still negative. ASSESSMENT AND DISCUSSION: Hypertension, perisplenic intracapsular splenic abscess with extension laws rrounding tissues and across to with subacute left pleural effusion, which is exudative, does n ot appear to be an empyema yet. We will transition the patient to meropenem and continue vancomycin. Further intervention left hemithorax with further drainage.
[2018-01-14 10:07] LABS: Bilirubin Negative (Negative); Blood, Urine Trace (Negative); Clarity CLEAR (Clear); Glucose, Urine (Dipstick) 100 mg/dL (Negative); Leukocyte Negative (Negative); Nitrite Negative (Negative); Protein, Urine (Dipstick) Negative (Neg-Trace); Specific Gravity, Urine 1.012 (1.002-1.036); Urobilinogen 0.2 mg/dL (0.2-1.0); pH, Urine 5.5 (5.0-9.0)
[2018-01-14 10:22] LABS: Bacteria/HPF None Seen HPF (None Seen); Hyaline Casts/LPF 0-3 HYALINE CAST LPF (0-3 Hyaline); RBC/HPF 0-3 HPF (0-3); Squamous Epithelial 0-3 HPF (0-3); WBC/HPF 0-3 HPF (0-3)
--- NOTE | 2018-01-14 10:25 | PRG ---
DATE OF SERVICE: 01/14/2018 SERVICE: Pulmonary Medicine INTERVAL HISTORY: After the thoracentesis yesterday, the patient had improvement in symptoms once ag ain. He currently denies any chest pain, nausea or vomiting. He is breathing comfortably. Last nig ht he had a slightly better night as far as breathing goes. On the thoracentesis yesterday, we pulle d off clear yellow fluid. This was actually quite reassuring. PHYSICAL EXAMINATION: VITAL SIGNS: Afebrile, pulse 101, blood pressure 136/73, respirations 20, saturation 96% on 2 liters nasal cannula. GENERAL: The patient is awake, alert, no apparent distress. LUNGS: Decent air entry. There is improved air entry at the left base. E to A egophony is present. Dullness to percussion is also present. HEART: Normal rate and regular. ABDOMEN: Soft, nontender, nondistended. Bowel sounds are positive. MUSCULOSKELETAL: No cyanosis or clubbing. There is no pitting in the bilateral lower extremities. NEUROLOGIC: Grossly nonfocal. LABORATORY DATA: WBC 12.3 and down trending, hemoglobin 9.7, and platelets 421,000. Sodium 131, whi ch continues to improve. Creatinine 1.01. CRP 13.54. Repeat thoracentesis fluid demonstrates an in creasingly benign fluid sample. All culture results remain negative to date. ASSESSMENT: 1. Acute hypoxic respiratory failure. 2. Community-acquired pneumonia. 3. Uncomplicated parapneumonic pleural effusion. 4. Splenic abscesses, multiple. DISCUSSION AND PLAN: Repeat a chest x-ray this morning. On this imaging study, it appears that ther e is a dense pleural parenchymal opacification in the left base. Yesterday, I pulled off a very jordan gn looking fluid. It had cleared compared to prior. My suspicion is that we are dealing with an unc omplicated space. The dense infiltrate on the left is most likely a parenchymal disease. At this po int, I would commit him to a course of therapy as directed by Infectious Disease. He will need a rep eat chest x-ray in 4-6 weeks in the outpatient setting. If along the way, the patient seems to get w orse, we would need to repeat a CT scan to make certain that he has not developed loculated effusion somewhere else, or developed a complication of the severe infiltrate-like abscess. Certainly neither one of these things was evident on the CT scan on presentation to the hospital. He will need to be set up on oxygen at least temporarily. I will see him in clinic in 4-6 weeks with that x-ray and ass ess whether or not continued oxygen requirements are there. From a purely a purely lung perspective; however, the patient is stable for discharge from the hospital.
--- NOTE | 2018-01-14 10:35 | PDOC.PN ---
- Subjective Encounter Start Date: 01/14/18 Encounter Start Time: 09:10 Patient seen and examined. No new complaints. No overnight events has cough, no chest pain - Objective MAR Reviewed: Yes Vital Signs & Weight: Vital Signs (12 hours) Temp Pulse Resp BP BP Pulse Ox 01/14/18 08:30 96 01/14/18 08:22 101 H 136/73 01/14/18 08:00 98.3 F 101 H 20 96 01/14/18 07:45 98.3 F 101 H 20 136/73 89 L 01/14/18 00:00 98.2 F 91 L Weight Weight 272 lb 3.2 oz I&O: 01/13/18 01/14/18 01/15/18 06:59 06:59 06:59 Intake Total 2860 3400 240 Output Total 850 600 Balance 2009 2800 240 Result Diagrams: 01/14/18 04:56 01/14/18 06:57 Additional Labs: Accuchecks 01/14/18 01/13/18 01/13/18 05:03 20:19 17:42 POC Glucose 172 H 180 H 216 H 01/13/18 11:20 POC Glucose 254 H Radiology Reviewed by me: Yes (chest xray) Phys Exam - Physical Examination Constitutional: NAD HEENT: moist MMs, sclera anicteric Neck: no JVD, supple Respiratory: no wheezing, no rhonchi left base rales, Cardiovascular: RRR, no significant murmur, no rub Gastrointestinal: soft, non-tender, no distention, positive bowel sounds Musculoskeletal: no edema, pulses present Neurological: non-focal, normal sensation Lymphatic: no nodes Psychiatric: normal affect, A&O x 3 Skin: no rash, normal turgor Dx/Plan (1) Atelectasis Status: Acute (2) Colonic diverticular abscess Code(s): K57.20 - DVTRCLI OF LG INT W PERFORATION AND ABSCESS W/O BLEEDING Status: Acute (3) 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 Code(s): K57.30 - DVRTCLOS OF LG INT W/O PERFORATION OR ABSCESS W/O BLEEDING Status: Acute (4) Hyponatremia Code(s): E87.1 - HYPO-OSMOLALITY AND HYPONATREMIA Status: Acute (5) Left lower lobe pneumonia Code(s): J18.1 - LOBAR PNEUMONIA, UNSPECIFIED ORGANISM Status: Acute (6) Parapneumonic effusion Code(s): J18.9 - PNEUMONIA, UNSPECIFIED ORGANISM; J91.8 - PLEURAL EFFUSION IN OTHER CONDITIONS CLASSIFIED ELSEWHERE Status: Acute (7) Sepsis Code(s): A41.9 - SEPSIS, UNSPECIFIED ORGANISM Status: Acute (8) Anemia, normocytic normochromic Code(s): D64.9 - ANEMIA, UNSPECIFIED Status: Chronic (9) Diabetes type 2, controlled Code(s): E11.9 - TYPE 2 DIABETES MELLITUS WITHOUT COMPLICATIONS Status: Chronic (10) Dyslipidemia Code(s): E78.5 - HYPERLIPIDEMIA, UNSPECIFIED Status: Chronic (11) Hypertension Code(s): I10 - ESSENTIAL (PRIMARY) HYPERTENSION Status: Chronic (12) Morbid obesity with BMI of 40.0-44.9, adult Code(s): E66.01 - MORBID (SEVERE) OBESITY DUE TO EXCESS CALORIES; Z68.41 - BODY MASS INDEX (BMI) 40.0-44.9, ADULT Status: Chronic - Plan cont current plan of care, plan discussed w/ family, continue antibiotics, PT/OT , social sciences chair, incentive spirometry * pt states that he has nobody to do iv antibiotics at home * final antibiotics will defer to ID team * will need oxygen and antibiotics arrangement * spoke with family and answered questions * medication reviewed as below * symptomatic treatment. * consult telehealth case manager for discharge planning Review of Systems - Review of Systems Constitutional: negative: fever, chills, sweats, weakness, malaise, other Eyes: negative: Pain, Vision Change, Conjunctivae Inflammation, Eyelid Inflammation, Redness, Other ENT: negative: Ear Pain, Ear Discharge, Nose Pain, Nose Discharge, Nose Congestion, Mouth Pain, Mouth Swelling, Throat Pain, Throat Swelling, Other Respiratory: Cough. negative: Dry, Shortness of Breath, Hemoptysis, SOB with Excertion, Pleuritic Pain, Sputum, Wheezing Cardiovascular: negative: chest pain, palpitations, orthopnea, paroxysmal nocturnal dyspnea, edema, light headedness, other Gastrointestinal: negative: Nausea, Vomiting, Abdominal Pain, Diarrhea, Constipation, Melena, Hematochezia, Other Genitourinary: negative: Dysuria, Frequency, Incontinence, Hematuria, Retention , Other Musculoskeletal: negative: Neck Pain, Shoulder Pain, Arm Pain, Back Pain, Hand Pain, Leg Pain, Foot Pain, Other Skin: negative: Rash, Lesions, Saeid, Bruising, Other - Medications/Allergies Allergies/Adverse Reactions: Allergies Allergy/AdvReac Type Severity Reaction Status Date / Time Penicillins Allergy Verified 01/10/18 23:21 Medications: Current Medications Acetaminophen (Tylenol) 650 mg PO Q4H PRN PRN Reason: Headache/Fever or Pain Last Admin: 01/13/18 21:18 Dose: 650 mg Albuterol/Ipratropium (Duoneb) 3 ml NEB Q4H PRN PRN Reason: Wheezing Amlodipine Besylate (Norvasc) 10 mg PO DAILY [facility] Last Admin: 01/14/18 08:22 Dose: 10 mg Atorvastatin Calcium (Lipitor) 20 mg PO HS [facility] Last Admin: 01/13/18 21:17 Dose: 20 mg Bisacodyl (Dulcolax) 10 mg PO DAILYPRN PRN PRN Reason: Constipation Dextrose/Water (Dextrose 50%) 25 gm SLOW IVP PRN PRN PRN Reason: Hypoglycemia Famotidine (Pepcid) 20 mg PO Q12HR [facility] Last Admin: 01/14/18 08:22 Dose: 20 mg Ferrous Sulfate (Feosol) 325 mg PO DAILY [facility] Last Admin: 01/14/18 08:21 Dose: 325 mg Glucagon (Glucagon) 1 mg IM PRN PRN PRN Reason: Hypoglycemia Hydralazine HCl (Apresoline) 10 mg SLOW IVP Q4H PRN PRN Reason: SBP > 170 or DBP > 100 Dextrose/Water (D5w) 1,000 mls @ 0 mls/hr IV .Q0M PRN; As Directed PRN Reason: Hypoglycemia Meropenem 1 gm/ Sodium (Chloride) 100 mls @ 200 mls/hr IVPB Q8HR [facility] Last Admin: 01/14/18 05:03 Dose: 100 mls Vancomycin HCl 1 gm/ Device 200 mls @ 200 mls/hr IVPB 0600,1800 [facility] Sodium Chloride (Normal Saline 0.9%) 1,000 mls @ 70 mls/hr IV .[id number] [facility] Last Admin: 01/14/18 08:18 Dose: Not Given Insulin Human Lispro (Humalog) 0 units SC .MILD SLIDING SCALE PRN PRN Reason: Mild Correctional Scale Last Admin: 01/13/18 17:58 Dose: 3 unit Metformin HCl (Glucophage) 1,000 mg PO BID- [facility] Last Admin: 01/14/18 08:22 Dose: 1,000 mg Morphine Sulfate (Morphine) 2 mg SLOW IVP Q2H PRN PRN Reason: Moderate Pain (4-6) Morphine Sulfate (Morphine) 4 mg SLOW IVP Q2H PRN PRN Reason: Severe Pain (7-10) Last Admin: 01/11/18 12:55 Dose: 4 mg Nitroglycerin (Nitrostat) 0.4 mg SL Q5MIN PRN PRN Reason: Chest Pain Ondansetron HCl (Zofran) 4 mg IVP Q6H PRN PRN Reason: Nausea/Vomiting Last Admin: 01/11/18 08:09 Dose: 4 mg Ondansetron HCl (Zofran) 4 mg IVP Q6H PRN PRN Reason: Nausea/Vomiting Promethazine HCl (Phenergan) 12.5 mg IM Q4H PRN PRN Reason: Nausea/Vomiting Senna (Senokot) 2 tab PO HSPRN PRN PRN Reason: Constipation Sodium Chloride (Flush - Normal Saline) 10 ml IVF PRN PRN PRN Reason: Saline Flush
--- NOTE | 2018-01-14 10:58 | PRG ---
DATE OF SERVICE: 01/14/2018 Mr. Dickey had another thoracentesis yesterday with 600 mL of fluid pulled off. He feels a little bi t better. PHYSICAL EXAMINATION: VITAL SIGNS; Pulses 101, temperature 98, blood pressure 136/73. GENERAL: He is feeling better. He still has slight cough. LABORATORY STUDIES: White count is 12.3, hemoglobin 9.7, platelet count 421. Sodium 131, potassium 3.5, BUN and creatinine are 9 and 1.01, glucose 146. Fluid white blood cells down to 1460 from 6580. ASSESSMENT: 1. Splenic abscesses with uncomplicated parapneumonic effusion on the left. 2. Pneumonia. At this time, it seems that diverticulitis is not at play here with a primary hepatic abscess. This may have been from hematogenous spread or may be related to the pneumonia. In any event, he had a co lonoscopy about 5 years ago that was normal with no polyps. I would agree with antibiotic management at this point in time. I think that resecting any surgery in the upper abdomen at this point in [place] would involve the spleen, the pancreas and the colon. We will be available for further assistance if needed. At this time we will follow from a distance.
--- NOTE | 2018-01-14 11:24 | RAD ---
CHEST 2 VIEWS: HISTORY: Pleural effusion. COMPARISON: 01/13/18. FINDINGS: Cardiac silhouette is magnified and predominantly obscured by left pleural fluid that has decreased s lightly since the prior study. Pulmonary vasculature is slightly engorged with patchy right basilar infiltrate. Mediastinum is midline with a left upper extremity PICC. IMPRESSION: 1. Slight interval decrease in left pleural fluid. 2. Pulmonary vascular congestion and other findings are otherwise stable. POS: [facility]
[2018-01-14 12:00] LABS: Clarity Hazy (Clear)
[2018-01-14] MEDS: HumaLOG 300 UNITS/3 ML VIAL SC PRN ×2 (12:22→16:54)
[2018-01-14 17:32] LABS: Vancomycin, Random 15.4 ug/mL (See Comment)
[2018-01-14] MEDS: Vancomycin HCl 1 GM in Premix Bag 1 BAG IVPB SCH (18:21)
--- NOTE | 2018-01-14 18:42 | PRG ---
DATE OF SERVICE: 01/14/2018 SUBJECTIVE: Patient is feeling better after repeat thoracentesis yesterday. Still with some mild pa in in the left chest area posteriorly. No headaches. Eating well. No vomiting and no abdominal navarro n, no change in neurological status. OBJECTIVE: VITAL SIGNS: T-max 99.9, is currently 98.3, blood pressure 130/70, pulse 101, O2 sat 96%. GENERAL: Voiding spontaneously, appears acutely ill, but better than yesterday, more alert. Extraoc ular movements are conjugate. LUNGS: Sounds diminished on the left side, the upper segment of the left side has better aeration th an yesterday as expected. HEART: S1, S2, regular rate. ABDOMEN: Mild to moderately distended, but not tender to palpation. EXTREMITIES: Moves extremities equally. LABORATORY DATA: The white cell count is at 12.3, hemoglobin 9.7, platelets 421, 86% neutrophils. S odium 131, creatinine 1.01. CRP 13.54. Microbiology with all cultures from body fluid still negativ e. The repeat WBC count in the body fluid showed 1460 with 87% neutrophils. Repeat pH was 7.587. T he chest x-ray from today with slight decrease in left pleural fluid, pulmonary vascular congestion. ASSESSMENT AND DISCUSSION: Splenic abscess, probably from hematogenous spread, although contiguous s pread from an adjacent organ is not completely ruled out, although appears to be less likely. There has been extension which is transdiaphragmatic towards the left pleural space I believe. We do not h ave any positive cultures and the patient is receiving empiric therapy with broad spectrum coverage t hrough a PICC line and the plan is to eventually continue this in the outpatient setting for a protra cted period of time. Disposition will depend on stabilization of the left pleural fluid.
[2018-01-14] MEDS: Atorvastatin Calcium 20 MG TAB PO SCH (20:19)
[2018-01-15] MEDS: Meropenem 1 GM in Sodium Chloride 0.9% 100 ML IVPB SCH ×3 (05:04→22:23)
[2018-01-15] MEDS: Vancomycin HCl 1 GM in Premix Bag 1 BAG IVPB SCH ×2 (05:04→17:18)
[2018-01-15] MEDS: Famotidine 20 MG TAB PO SCH ×2 (08:27→22:23)
[2018-01-15] MEDS: Amlodipine 10 MG TAB PO SCH (08:27)
[2018-01-15] MEDS: metFORMIN 500 MG TAB PO SCH ×2 (08:27→17:18)
[2018-01-15] MEDS: Ferrous Sulfate 325 MG TAB PO SCH (08:27)
[2018-01-15] MEDS: HumaLOG 300 UNITS/3 ML VIAL SC PRN (12:18)
--- NOTE | 2018-01-15 12:27 | PDOC.PN ---
- Subjective Encounter Start Date: 01/15/18 Encounter Start Time: 09:15 pt is febrile and tachycardic today, Patient seen and examined. No new complaints. No overnight events - Objective MAR Reviewed: Yes Vital Signs & Weight: Vital Signs (12 hours) Temp Pulse Resp BP BP Pulse Ox Pulse Ox 01/15/18 09:23 94 L 01/15/18 08:27 103 H 135/73 01/15/18 08:24 100.0 F H 103 H 20 93 L 01/15/18 08:00 100.5 F H 100 20 135/73 93 L Pulse Ox 01/15/18 09:23 95 01/15/18 08:27 01/15/18 08:24 01/15/18 08:00 Weight Weight 272 lb 3.2 oz I&O: 01/14/18 01/15/18 01/16/18 06:59 06:59 06:59 Intake Total 3400 2590 Output Total 600 Balance 2800 2590 Result Diagrams: 01/14/18 04:56 01/14/18 06:57 Additional Labs: Accuchecks 01/15/18 01/15/18 01/14/18 11:19 04:17 19:55 POC Glucose 206 H 168 H 206 H 01/14/18 16:27 POC Glucose 175 H Phys Exam - Physical Examination Constitutional: NAD HEENT: PERRLA, moist MMs, sclera anicteric Neck: no JVD, supple Respiratory: no wheezing, no rhonchi reduced air entry at left base Cardiovascular: RRR, no significant murmur, no rub tachycardia Gastrointestinal: soft, non-tender, no distention, positive bowel sounds Musculoskeletal: no edema, pulses present Neurological: non-focal, normal sensation Lymphatic: no nodes Psychiatric: normal affect, A&O x 3 Skin: no rash, normal turgor Dx/Plan (1) Colonic diverticular abscess Code(s): K57.20 - DVTRCLI OF LG INT W PERFORATION AND ABSCESS W/O BLEEDING Status: Acute Comment: with splenic abscess (2) Atelectasis Status: Acute (3) 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 Code(s): K57.30 - DVRTCLOS OF LG INT W/O PERFORATION OR ABSCESS W/O BLEEDING Status: Acute Comment: with abscess formation (4) Hyponatremia Code(s): E87.1 - HYPO-OSMOLALITY AND HYPONATREMIA Status: Acute (5) Left lower lobe pneumonia Code(s): J18.1 - LOBAR PNEUMONIA, UNSPECIFIED ORGANISM Status: Acute Comment : with effusion, (6) Parapneumonic effusion Code(s): J18.9 - PNEUMONIA, UNSPECIFIED ORGANISM; J91.8 - PLEURAL EFFUSION IN OTHER CONDITIONS CLASSIFIED ELSEWHERE Status: Acute Comment: s/p throcentesis X 2 (7) Sepsis Code(s): A41.9 - SEPSIS, UNSPECIFIED ORGANISM Status: Acute (8) Anemia, normocytic normochromic Code(s): D64.9 - ANEMIA, UNSPECIFIED Status: Chronic (9) Diabetes type 2, controlled Code(s): E11.9 - TYPE 2 DIABETES MELLITUS WITHOUT COMPLICATIONS Status: Chronic (10) Dyslipidemia Code(s): E78.5 - HYPERLIPIDEMIA, UNSPECIFIED Status: Chronic (11) Hypertension Code(s): I10 - ESSENTIAL (PRIMARY) HYPERTENSION Status: Chronic (12) Morbid obesity with BMI of 40.0-44.9, adult Code(s): E66.01 - MORBID (SEVERE) OBESITY DUE TO EXCESS CALORIES; Z68.41 - BODY MASS INDEX (BMI) 40.0-44.9, ADULT Status: Chronic - Plan cont current plan of care, plan discussed w/ family, continue antibiotics, PT/OT , group social worker, incentive spirometry * today pt febrile and tachycardic, will monitor in hospital * medication reviewed as below * symptomatic treatment * continue meropenam and vancomycin * pt will need swing bed for iv antibiotics on discharge * not ready for discharge today * discussed with family. Review of Systems - Review of Systems Constitutional: fever. negative: chills, sweats, weakness, malaise, other ENT: negative: Ear Pain, Ear Discharge, Nose Pain, Nose Discharge, Nose Congestion, Mouth Pain, Mouth Swelling, Throat Pain, Throat Swelling, Other Respiratory: Cough, SOB with Excertion. negative: Dry, Shortness of Breath, Hemoptysis, Pleuritic Pain, Sputum, Wheezing Cardiovascular: negative: chest pain, palpitations, orthopnea, paroxysmal nocturnal dyspnea, edema, light headedness, other Gastrointestinal: Abdominal Pain. negative: Nausea, Vomiting, Diarrhea, Constipation, Melena, Hematochezia, Other Genitourinary: negative: Dysuria, Frequency, Incontinence, Hematuria, Retention , Other Musculoskeletal: negative: Neck Pain, Shoulder Pain, Arm Pain, Back Pain, Hand Pain, Leg Pain, Foot Pain, Other Skin: negative: Rash, Lesions, Saeid, Bruising, Other - Medications/Allergies Allergies/Adverse Reactions: Allergies Allergy/AdvReac Type Severity Reaction Status Date / Time Penicillins Allergy Verified 01/10/18 23:21 Medications: Current Medications Acetaminophen (Tylenol) 650 mg PO Q4H PRN PRN Reason: Headache/Fever or Pain Last Admin: 01/13/18 21:18 Dose: 650 mg Albuterol/Ipratropium (Duoneb) 3 ml NEB Q4H PRN PRN Reason: Wheezing Amlodipine Besylate (Norvasc) 10 mg PO DAILY [facility] Last Admin: 01/15/18 08:27 Dose: 10 mg Atorvastatin Calcium (Lipitor) 20 mg PO HS [facility] Last Admin: 01/14/18 20:19 Dose: 20 mg Bisacodyl (Dulcolax) 10 mg PO DAILYPRN PRN PRN Reason: Constipation Dextrose/Water (Dextrose 50%) 25 gm SLOW IVP PRN PRN PRN Reason: Hypoglycemia Famotidine (Pepcid) 20 mg PO Q12HR [facility] Last Admin: 01/15/18 08:27 Dose: 20 mg Ferrous Sulfate (Feosol) 325 mg PO DAILY [facility] Last Admin: 01/15/18 08:27 Dose: 325 mg Glucagon (Glucagon) 1 mg IM PRN PRN PRN Reason: Hypoglycemia Hydralazine HCl (Apresoline) 10 mg SLOW IVP Q4H PRN PRN Reason: SBP > 170 or DBP > 100 Dextrose/Water (D5w) 1,000 mls @ 0 mls/hr IV .Q0M PRN; As Directed PRN Reason: Hypoglycemia Meropenem 1 gm/ Sodium (Chloride) 100 mls @ 200 mls/hr IVPB Q8HR [facility] Last Admin: 01/15/18 05:04 Dose: 100 mls Vancomycin HCl 1 gm/ Device 200 mls @ 200 mls/hr IVPB 0600,1800 [facility] Last Admin: 01/15/18 05:04 Dose: 200 mls Insulin Human Lispro (Humalog) 0 units SC .MILD SLIDING SCALE PRN PRN Reason: Mild Correctional Scale Last Admin: 04/05/18 12:18 Dose: 3 unit Metformin HCl (Glucophage) 1,000 mg PO BID-[facility] Last Admin: 01/15/18 08:27 Dose: 1,000 mg Morphine Sulfate (Morphine) 2 mg SLOW IVP Q2H PRN PRN Reason: Moderate Pain (4-6) Morphine Sulfate (Morphine) 4 mg SLOW IVP Q2H PRN PRN Reason: Severe Pain (7-10) Last Admin: 01/11/18 12:55 Dose: 4 mg Nitroglycerin (Nitrostat) 0.4 mg SL Q5MIN PRN PRN Reason: Chest Pain Ondansetron HCl (Zofran) 4 mg IVP Q6H PRN PRN Reason: Nausea/Vomiting Last Admin: 01/11/18 08:09 Dose: 4 mg Ondansetron HCl (Zofran) 4 mg IVP Q6H PRN PRN Reason: Nausea/Vomiting Promethazine HCl (Phenergan) 12.5 mg IM Q4H PRN PRN Reason: Nausea/Vomiting Senna (Senokot) 2 tab PO HSPRN PRN PRN Reason: Constipation Sodium Chloride (Flush - Normal Saline) 10 ml IVF PRN PRN PRN Reason: Saline Flush
--- NOTE | 2018-01-15 15:44 | PRG ---
DATE OF SERVICE: 01/15/2018 SERVICE: Pulmonary Medicine. INTERVAL HISTORY: The patient is doing fantastic from a cardiovascular and respiratory standpoint. He denies any current chest pain, nausea, vomiting, or shortness of breath. He has been put on room air. They walked him today and he desaturated just to 89%. As such, he is not a candidate for home oxygen. Different options were given to him on going home. Ultimately, he chose to go to a swing be d. He is hopeful that he can get a day pass from the hospital on a daily basis to continue working a [employer], as this is a very busy time of the year for him. PHYSICAL EXAMINATION: VITAL SIGNS: T-max 100.5 with an overall improving temperature profile. Pulse 103, blood pressure 1 35/73, respirations 20, saturation 93% on 2 liters nasal cannula. GENERAL: The patient is awake and alert, in no apparent distress. LUNGS: Improved air entry in the left base. There is E to A egophony there. Crackles are present. No wheezing or prolonged expiratory phase. Rhonchi are there, but clear with cough. HEART: Normal rate, regular. ABDOMEN: Soft, nontender, nondistended. Bowel sounds are positive. MUSCULOSKELETAL: No cyanosis or clubbing. There is no pitting in the bilateral lower extremities. NEUROLOGIC: Grossly nonfocal. LABORATORY DATA: All culture studies remain negative to date. Blood cultures x2, body fluid culture x2 are all unremarkable. ASSESSMENT: 1. Acute hypoxic respiratory failure. 2. Community-acquired pneumonia. 3. Uncomplicated parapneumonic pleural effusion. 4. Splenic abscesses, multiple. PLAN: I will repeat a chest x-ray tomorrow morning if the patient is still here. If this does not s how anything that requires intervention, then he will be stable for discharge from the hospital to [facility] swing bed facility to continue getting antibiotics as directed by Dr. Samuel. I will have him spring w up with me in clinic in 4-6 weeks with a preclinic chest x-ray to verify that the infiltrate contin ues to clear. I will continue to follow for now.
[2018-01-15] MEDS: Acetaminophen 325 MG TAB PO PRN (18:02)
[2018-01-15] MEDS: Atorvastatin Calcium 20 MG TAB PO SCH (22:23)
[2018-01-16] MEDS ORDERED: diphenhydrAMINE 25 MG CAP PO PRN (03:24)
[2018-01-16 05:34] LABS: #Eosinphils 0.4 thou/uL (0.0-0.7); #Lymphocytes 0.4 thou/uL (1.20-3.40); #Monocytes 0.9 thou/uL (0.11-0.59); #Neutrophils 16.5 thou/uL (1.40-6.50); %Basophils 0.2 % (0.0-1.0); %Eosinophils 2.1 % (0.0-10.0); %Lymphocytes 2.4 % (21.0-51.0); %Monocytes 4.9 % (0.0-10.0); %Neutrophils 90.4 % (42.0-75.0); Hemoglobin 9.8 g/dL (14.0-18.0); Mean Corpuscular HGB CONC 32.2 g/dL (32.0-36.0); Mean Corpuscular Hemoglobin 27.4 pg (27.0-31.0); Mean Corpuscular Volume 84.9 fl (80.0-94.0); Mean Platelet Volume 7.1 fL (7.4-10.4); Platelet Count 424 thou/uL (130-400); Red Blood Cell (RBC) Count 3.56 mill/uL (4.70-6.10); White Blood Cell (WBC) Count 18.3 thou/uL (4.8-10.8)
[2018-01-16 05:48] LABS: Albumin 2.3 g/dL (3.4-4.8); Anion Gap 14 mmol/L (10-20); Calc. Creatinine Clearance 116 mL/min (70-130); Calcium 7.3 mg/dL (7.8-10.44); Carbon Dioxide 20 mmol/L (23-31); Chloride 100 mmol/L (98-107); Estimated GFR-MDRD 66; Glucose 164 mg/dL (80-115); Magnesium 1.4 mg/dL (1.6-2.6); Potassium 3.6 mmol/L (3.5-5.1); Sodium 130 mmol/L (136-145)
[2018-01-16 05:49] LABS: Vancomycin, Trough 16.7 ug/mL
[2018-01-16] MEDS: Meropenem 1 GM in Sodium Chloride 0.9% 100 ML IVPB SCH ×3 (05:55→21:20)
[2018-01-16] MEDS: HumaLOG 300 UNITS/3 ML VIAL SC PRN ×3 (05:55→16:14)
[2018-01-16 05:56] LABS: BUN (Urea Nitrogen) 11 mg/dL (8.4-25.7); BUN/Creatinine Ratio 9.91
[2018-01-16] MEDS ORDERED: Magnesium Sulfate 3 GM in Sodium Chloride 0.9% 100 ML IVPB SCH (07:30)
[2018-01-16] MEDS: Vancomycin HCl 1 GM in Premix Bag 1 BAG IVPB SCH ×2 (08:18→18:14)
[2018-01-16] MEDS: metFORMIN 500 MG TAB PO SCH ×2 (08:20→16:04)
[2018-01-16] MEDS: Amlodipine 10 MG TAB PO SCH (08:20)
[2018-01-16] MEDS: Famotidine 20 MG TAB PO SCH ×2 (08:20→21:20)
[2018-01-16] MEDS: Ferrous Sulfate 325 MG TAB PO SCH (08:20)
--- NOTE | 2018-01-16 09:36 | RAD ---
CHEST 2 VIEWS: Date: 01/16/18 HISTORY: Pleural fluid. Infiltrate. Follow-up. COMPARISON: 01/14/18. FINDINGS: Cardiac silhouette is now more obscured by opacity at the inferior aspect of the left hemithorax that has increased since the prior study. Loculated opacity at the lateral aspect of the left apex is sta ble. Pulmonary vasculature remains engorged. Mediastinum is midline. Left upper extremity PICC is par tially visualized. Small amount of fluid is again demonstrated within the minor fissure on the right. IMPRESSION: 1. Continued increase in left pleural fluid. 2. Pulmonary vascular congestion and other findings are otherwise stable. POS: [facility]
--- NOTE | 2018-01-16 11:45 | PDOC.PN ---
- Subjective Encounter Start Date: 01/16/18 Encounter Start Time: 09:00 Patient seen and examined. No new complaints. No overnight events still has cough, no fever today - Objective MAR Reviewed: Yes Vital Signs & Weight: Vital Signs (12 hours) Temp Pulse Resp BP BP Pulse Ox Pulse Ox 01/16/18 08:20 101 H 149/79 H 91 L 01/16/18 08:00 99.1 F 101 H 20 91 L 01/16/18 04:00 99.1 F 101 H 20 137/77 93 L 01/16/18 00:00 98.0 F 93 20 129/78 92 L Weight Weight 272 lb 3.2 oz I&O: 01/15/18 01/16/18 01/17/18 06:59 06:59 06:59 Intake Total 2590 2200 Balance 2590 2200 Result Diagrams: 01/16/18 05:09 01/16/18 05:09 Additional Labs: Accuchecks 01/16/18 01/15/18 01/15/18 04:42 19:36 16:43 POC Glucose 193 H 242 H 154 H 01/15/18 11:19 POC Glucose 206 H Radiology Reviewed by me: Yes (chest xray) Phys Exam - Physical Examination Constitutional: NAD HEENT: PERRLA, moist MMs, sclera anicteric Neck: no JVD, supple reduced air entry left side Cardiovascular: RRR, no significant murmur, no rub Gastrointestinal: soft, non-tender, no distention, positive bowel sounds obesity+ Musculoskeletal: no edema, pulses present Neurological: non-focal, normal sensation Psychiatric: normal affect, A&O x 3 Skin: no rash, normal turgor Dx/Plan (1) Colonic diverticular abscess Code(s): K57.20 - DVTRCLI OF LG INT W PERFORATION AND ABSCESS W/O BLEEDING Status: Acute Comment: with splenic abscess (2) Atelectasis Status: Acute (3) 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 Code(s): K57.30 - DVRTCLOS OF LG INT W/O PERFORATION OR ABSCESS W/O BLEEDING Status: Acute Comment: with abscess formation (4) Hyponatremia Code(s): E87.1 - HYPO-OSMOLALITY AND HYPONATREMIA Status: Acute (5) Left lower lobe pneumonia Code(s): J18.1 - LOBAR PNEUMONIA, UNSPECIFIED ORGANISM Status: Acute Comment : with effusion, (6) Parapneumonic effusion Code(s): J18.9 - PNEUMONIA, UNSPECIFIED ORGANISM; J91.8 - PLEURAL EFFUSION IN OTHER CONDITIONS CLASSIFIED ELSEWHERE Status: Acute Comment: s/p throcentesis X 2 (7) Sepsis Code(s): A41.9 - SEPSIS, UNSPECIFIED ORGANISM Status: Acute (8) Anemia, normocytic normochromic Code(s): D64.9 - ANEMIA, UNSPECIFIED Status: Chronic (9) Diabetes type 2, controlled Code(s): E11.9 - TYPE 2 DIABETES MELLITUS WITHOUT COMPLICATIONS Status: Chronic (10) Dyslipidemia Code(s): E78.5 - HYPERLIPIDEMIA, UNSPECIFIED Status: Chronic (11) Hypertension Code(s): I10 - ESSENTIAL (PRIMARY) HYPERTENSION Status: Chronic (12) Morbid obesity with BMI of 40.0-44.9, adult Code(s): E66.01 - MORBID (SEVERE) OBESITY DUE TO EXCESS CALORIES; Z68.41 - BODY MASS INDEX (BMI) 40.0-44.9, ADULT Status: Chronic - Plan cont current plan of care, plan discussed w/ family, continue antibiotics, PT/OT , pediatric social worker, incentive spirometry, DVT proph w/lovenox * continue meropenam and vancomycin * still has effusion on left, will defer further plan to pulmonary ? need for CT surgeon * awaiting to send him to swing bed in [facility], * medication reviewed as below * symptomatic treatment * pain is controlled * ambulate as tolerated. Review of Systems - Review of Systems Constitutional: negative: fever, chills, sweats, weakness, malaise, other Eyes: negative: Pain, Vision Change, Conjunctivae Inflammation, Eyelid Inflammation, Redness, Other Respiratory: Cough. negative: Dry, Shortness of Breath, Hemoptysis, SOB with Excertion, Pleuritic Pain, Sputum, Wheezing Cardiovascular: negative: chest pain, palpitations, orthopnea, paroxysmal nocturnal dyspnea, edema, light headedness, other Gastrointestinal: negative: Nausea, Vomiting, Abdominal Pain, Diarrhea, Constipation, Melena, Hematochezia, Other Genitourinary: negative: Dysuria, Frequency, Incontinence, Hematuria, Retention , Other Musculoskeletal: negative: Neck Pain, Shoulder Pain, Arm Pain, Back Pain, Hand Pain, Leg Pain, Foot Pain, Other Skin: negative: Rash, Lesions, Saeid, Bruising, Other - Medications/Allergies Allergies/Adverse Reactions: Allergies Allergy/AdvReac Type Severity Reaction Status Date / Time Penicillins Allergy Verified 01/10/18 23:21 Medications: Current Medications Acetaminophen (Tylenol) 650 mg PO Q4H PRN PRN Reason: Headache/Fever or Pain Last Admin: 01/15/18 18:02 Dose: 650 mg Albuterol/Ipratropium (Duoneb) 3 ml NEB Q4H PRN PRN Reason: Wheezing Amlodipine Besylate (Norvasc) 10 mg PO DAILY [facility] Last Admin: 01/16/18 08:20 Dose: 10 mg Atorvastatin Calcium (Lipitor) 20 mg PO HS [facility] Last Admin: 01/15/18 22:23 Dose: 20 mg Bisacodyl (Dulcolax) 10 mg PO DAILYPRN PRN PRN Reason: Constipation Dextrose/Water (Dextrose 50%) 25 gm SLOW IVP PRN PRN PRN Reason: Hypoglycemia Diphenhydramine HCl (Benadryl) 25 mg PO Q6H PRN PRN Reason: Itching & Insomnia Last Admin: 01/16/18 03:51 Dose: 25 mg Famotidine (Pepcid) 20 mg PO Q12HR [facility] Last Admin: 01/16/18 08:20 Dose: 20 mg Ferrous Sulfate (Feosol) 325 mg PO DAILY [facility] Last Admin: 01/16/18 08:20 Dose: 325 mg Glucagon (Glucagon) 1 mg IM PRN PRN PRN Reason: Hypoglycemia Hydralazine HCl (Apresoline) 10 mg SLOW IVP Q4H PRN PRN Reason: SBP > 170 or DBP > 100 Dextrose/Water (D5w) 1,000 mls @ 0 mls/hr IV .Q0M PRN; As Directed PRN Reason: Hypoglycemia Meropenem 1 gm/ Sodium (Chloride) 100 mls @ 200 mls/hr IVPB Q8HR [facility] Last Admin: 01/16/18 05:55 Dose: 100 mls Vancomycin HCl 1 gm/ Device 200 mls @ 200 mls/hr IVPB 0600,1800 [facility] Last Admin: 01/16/18 08:18 Dose: 200 mls Insulin Human Lispro (Humalog) 0 units SC .MILD SLIDING SCALE PRN PRN Reason: Mild Correctional Scale Last Admin: 01/16/18 05:55 Dose: 2 unit Metformin HCl (Glucophage) 1,000 mg PO BID-WM [facility] Last Admin: 01/16/18 08:20 Dose: 1,000 mg Morphine Sulfate (Morphine) 2 mg SLOW IVP Q2H PRN PRN Reason: Moderate Pain (4-6) Morphine Sulfate (Morphine) 4 mg SLOW IVP Q2H PRN PRN Reason: Severe Pain (7-10) Last Admin: 01/11/18 12:55 Dose: 4 mg Nitroglycerin (Nitrostat) 0.4 mg SL Q5MIN PRN PRN Reason: Chest Pain Ondansetron HCl (Zofran) 4 mg IVP Q6H PRN PRN Reason: Nausea/Vomiting Last Admin: 01/11/18 08:09 Dose: 4 mg Ondansetron HCl (Zofran) 4 mg IVP Q6H PRN PRN Reason: Nausea/Vomiting Promethazine HCl (Phenergan) 12.5 mg IM Q4H PRN PRN Reason: Nausea/Vomiting Senna (Senokot) 2 tab PO HSPRN PRN PRN Reason: Constipation Sodium Chloride (Flush - Normal Saline) 10 ml IVF PRN PRN PRN Reason: Saline Flush
[2018-01-16] MEDS ORDERED: ISOVUE-370 76%-LOCM 1 ML ONE (14:29)
[2018-01-16] MEDS ORDERED: Furosemide 40 MG/4 ML VIAL SLOW IVP SCH (15:00)
--- NOTE | 2018-01-16 15:04 | PRG ---
DATE OF SERVICE: 01/16/2018 SERVICE: Pulmonary Medicine. INTERVAL HISTORY: The patient is doing fine from a respiratory standpoint. He indicates that he is breathing much better. He is not having any fevers, any longer. He denies any chills, nausea, vomiting or chest discomfort. He refused to go to the swing bed because there are no lung doctors that are over there in case he gets into trouble. As such, we will send him down for a CT of the chest today to clarify whether or not he is having any terrible sequela/ complications for his severe community-acquired pneumonia. PHYSICAL EXAMINATION: VITAL SIGNS: Afebrile, currently with a T-max overnight of 100.9. Overall, his temperature profile is improving. Pulse 101, blood pressure 149/79, respirations 20 and saturation 91% on room air. GENERAL: The patient is awake and alert, in no apparent distress. LUNGS: Excellent air entry. Dependent crackles are present today bilaterally. There is less air entry at the left base with E:A egophony. HEART: Tachycardic. Regular. ABDOMEN: Soft, nontender and nondistended. Bowel sounds are positive. MUSCULOSKELETAL: No cyanosis or clubbing. There is 2+ pitting in the bilateral lower extremities. NEUROLOGIC: Grossly nonfocal. LABORATORY DATA: WBC 18.3 and up trending, hemoglobin 9.8 and stable, platelets 424,000. Neutrophil count is increasing to 90.4. Creatinine 1.11. Basic metabolic profile is otherwise unremarkable except for a sodium, which is down trending to 130. Calcium 7.3, magnesium 1.4 and phosphorus 3.0. IMAGING DATA: Chest x-ray demonstrates a dense left-sided infiltrate. Possible effusion is superimposed on this thing. ASSESSMENT: 1. Acute hypoxic respiratory failure. 2. Community-acquired pneumonia. 3. Uncomplicated parapneumonic pleural effusion, status post thoracentesis x2. 4. Splenic abscesses, multiple. DISCUSSION AND PLAN: We will give the patient a couple doses of Lasix through the weekend. I will replace magnesium and phosphorus. Pulmonary Critical Care will continue to follow while the patient remains in this location. We will perform a CT of the chest today. If this does not show any complications of severe pneumonia, we will just repeat a chest x-ray on Friday. If at that time , things remain stable, he should be transitioned out of the hospital. MARTINEZ
--- NOTE | 2018-01-16 15:55 | CT ---
CT CHEST WITH IV CONTRAST: 01/16/18 HISTORY: Pleural fluid with drainage. Abdominal abscess. COMPARISON: 01/10/18. FINDINGS: Right lung is well inflated. Small amount of left pleural fluid is present with some loculated compon ents along the anterolateral, posterior chest wall and the pleural fissure. There is associated compr essive atelectasis. No gas pockets are visible within the small amount of remaining pleural fluid. Mediastinum is midline with scattered nonspecific, nonenlarged lymph nodes. Within the partially visualized upper abdomen, fluid and stranding within the left upper quadrant is again demonstrated. The largest collection, along the superior posterior margin of the spleen, now me asures up to 7.1 cm, significantly larger on the prior study. The lesions at the inferior margin of t he spleen now measure up to 4.6 and 3.9 cm. They are favored to be predominantly subcapsular in locat ion. The irregular shaped predominantly soft tissue density structure just anterior to the splenic ta il now measures up to 4.5 x 3.7 cm greatest diameters, slightly larger than on the previous study. Wh ile it is adjacent to the splenic flexure of the colon, it is favored to not be a normal component of the bowel. IMPRESSION: 1. Small amount of residual loculated left pleural fluid without evidence of complication. Atele ctasis at the left lung base remains. 2. Enlargement of the perisplenic and pancreatic fluid and gas collections and suspected soft ti ssue mass adjacent to the pancreatic tail, as detailed above. Please consider surgical evaluation. Findings were called to Dr. Anaya at 1505 hours. Code CR POS: VERNON
[2018-01-16] MEDS: Potassium Chloride 20 MEQ TAB PO SCH ×4 (16:04→18:14)
[2018-01-16] MEDS: Atorvastatin Calcium 20 MG TAB PO SCH (21:20)
[2018-01-17] MEDS: Bisacodyl 5 MG TAB PO PRN ×2 (03:13→20:53)
[2018-01-17] MEDS: HumaLOG 300 UNITS/3 ML VIAL SC PRN ×3 (06:13→17:23)
[2018-01-17] MEDS: Meropenem 1 GM in Sodium Chloride 0.9% 100 ML IVPB SCH ×3 (06:13→20:54)
[2018-01-17 07:17] LABS: Anion Gap 12 mmol/L (10-20); BUN (Urea Nitrogen) 12 mg/dL (8.4-25.7); Calc. Creatinine Clearance 109 mL/min (70-130); Calcium 7.7 mg/dL (7.8-10.44); Carbon Dioxide 23 mmol/L (23-31); Chloride 100 mmol/L (98-107); Estimated GFR-MDRD 62; Glucose 174 mg/dL (80-115); Magnesium 1.5 mg/dL (1.6-2.6); Potassium 3.6 mmol/L (3.5-5.1); Sodium 131 mmol/L (136-145)
[2018-01-17] MEDS: Vancomycin HCl 1 GM in Premix Bag 1 BAG IVPB SCH ×2 (07:40→17:20)
[2018-01-17] MEDS: metFORMIN 500 MG TAB PO SCH ×2 (08:53→17:21)
[2018-01-17] MEDS: Amlodipine 10 MG TAB PO SCH (08:53)
[2018-01-17] MEDS: Furosemide 40 MG/4 ML VIAL SLOW IVP SCH (08:54)
[2018-01-17] MEDS: Ferrous Sulfate 325 MG TAB PO SCH (08:54)
[2018-01-17] MEDS: Famotidine 20 MG TAB PO SCH ×2 (08:54→20:53)
--- NOTE | 2018-01-17 10:03 | PDOC.PN ---
- Subjective Encounter Start Date: 01/17/18 Encounter Start Time: 07:30 pt has constipation, no fever, has mild cough, less dyspnea, Patient seen and examined. No overnight events - Objective MAR Reviewed: Yes Vital Signs & Weight: Vital Signs (12 hours) Temp Pulse Resp BP BP Pulse Ox 01/17/18 08:53 90 133/76 01/17/18 08:00 97.4 F L 90 18 133/76 92 L 01/17/18 00:15 99.5 F Weight Weight 272 lb 3.2 oz I&O: 01/16/18 01/17/18 01/18/18 06:59 06:59 06:59 Intake Total 2200 1850 Balance 2200 1850 Result Diagrams: 01/16/18 05:09 01/17/18 06:36 Additional Labs: Accuchecks 01/17/18 01/16/18 01/16/18 05:07 20:10 16:12 POC Glucose 181 H 206 H 179 H 01/16/18 11:36 POC Glucose 200 H Radiology Reviewed by me: Yes (CT chest) Phys Exam - Physical Examination Constitutional: NAD HEENT: PERRLA, moist MMs, sclera anicteric Neck: no JVD, supple Respiratory: no wheezing, no rhonchi reduced air entry on left side Cardiovascular: RRR, no significant murmur, no rub Gastrointestinal: soft, no distention, positive bowel sounds obesity Musculoskeletal: no edema, pulses present Neurological: non-focal, normal sensation, moves all 4 limbs Psychiatric: normal affect, A&O x 3 Skin: no rash, normal turgor Dx/Plan (1) Colonic diverticular abscess Code(s): K57.20 - DVTRCLI OF LG INT W PERFORATION AND ABSCESS W/O BLEEDING Status: Acute Comment: with splenic abscess (2) Atelectasis Status: Acute (3) 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 Code(s): K57.30 - DVRTCLOS OF LG INT W/O PERFORATION OR ABSCESS W/O BLEEDING Status: Acute Comment: with abscess formation (4) Hyponatremia Code(s): E87.1 - HYPO-OSMOLALITY AND HYPONATREMIA Status: Acute (5) Left lower lobe pneumonia Code(s): J18.1 - LOBAR PNEUMONIA, UNSPECIFIED ORGANISM Status: Acute Comment : with effusion, (6) Parapneumonic effusion Code(s): J18.9 - PNEUMONIA, UNSPECIFIED ORGANISM; J91.8 - PLEURAL EFFUSION IN OTHER CONDITIONS CLASSIFIED ELSEWHERE Status: Acute Comment: s/p throcentesis X 2 (7) Sepsis Code(s): A41.9 - SEPSIS, UNSPECIFIED ORGANISM Status: Acute (8) Anemia, normocytic normochromic Code(s): D64.9 - ANEMIA, UNSPECIFIED Status: Chronic (9) Diabetes type 2, controlled Code(s): E11.9 - TYPE 2 DIABETES MELLITUS WITHOUT COMPLICATIONS Status: Chronic (10) Dyslipidemia Code(s): E78.5 - HYPERLIPIDEMIA, UNSPECIFIED Status: Chronic (11) Hypertension Code(s): I10 - ESSENTIAL (PRIMARY) HYPERTENSION Status: Chronic (12) Morbid obesity with BMI of 40.0-44.9, adult Code(s): E66.01 - MORBID (SEVERE) OBESITY DUE TO EXCESS CALORIES; Z68.41 - BODY MASS INDEX (BMI) 40.0-44.9, ADULT Status: Chronic (13) Hypomagnesemia Code(s): E83.42 - HYPOMAGNESEMIA Status: Acute - Plan cont current plan of care, continue antibiotics, respiratory therapy, incentive spirometry * replace magnesium sulfate * stool softener * continue meropenam and vancomycin * will keep in hospital over weekend * medication reviewed as below * symptomatic treatment. * pulmonary following * surgeon following * ID team following * repeat labs tomorrow Review of Systems - Review of Systems Constitutional: negative: fever, chills, sweats, weakness, malaise, other Eyes: negative: Pain, Vision Change, Conjunctivae Inflammation, Eyelid Inflammation, Redness, Other ENT: negative: Ear Pain, Ear Discharge, Nose Pain, Nose Discharge, Nose Congestion, Mouth Pain, Mouth Swelling, Throat Pain, Throat Swelling, Other Respiratory: Cough. negative: Dry, Shortness of Breath, Hemoptysis, SOB with Excertion, Pleuritic Pain, Sputum, Wheezing Cardiovascular: negative: chest pain, palpitations, orthopnea, paroxysmal nocturnal dyspnea, edema, light headedness, other Gastrointestinal: Abdominal Pain, Constipation. negative: Nausea, Vomiting, Diarrhea, Melena, Hematochezia, Other Genitourinary: negative: Dysuria, Frequency, Incontinence, Hematuria, Retention , Other Musculoskeletal: negative: Neck Pain, Shoulder Pain, Arm Pain, Back Pain, Hand Pain, Leg Pain, Foot Pain, Other Skin: negative: Rash, Lesions, Saeid, Bruising, Other - Medications/Allergies Allergies/Adverse Reactions: Allergies Allergy/AdvReac Type Severity Reaction Status Date / Time Penicillins Allergy Verified 01/10/18 23:21 Medications: Current Medications Acetaminophen (Tylenol) 650 mg PO Q4H PRN PRN Reason: Headache/Fever or Pain Last Admin: 01/15/18 18:02 Dose: 650 mg Albuterol/Ipratropium (Duoneb) 3 ml NEB Q4H PRN PRN Reason: Wheezing Amlodipine Besylate (Norvasc) 10 mg PO DAILY [facility] Last Admin: 01/17/18 08:53 Dose: 10 mg Atorvastatin Calcium (Lipitor) 20 mg PO HS [facility] Last Admin: 01/16/18 21:20 Dose: 20 mg Bisacodyl (Dulcolax) 10 mg PO DAILYPRN PRN PRN Reason: Constipation Last Admin: 01/17/18 03:13 Dose: 10 mg Dextrose/Water (Dextrose 50%) 25 gm SLOW IVP PRN PRN PRN Reason: Hypoglycemia Diphenhydramine HCl (Benadryl) 25 mg PO Q6H PRN PRN Reason: Itching & Insomnia Last Admin: 01/16/18 03:51 Dose: 25 mg Famotidine (Pepcid) 20 mg PO Q12HR [facility] Last Admin: 01/17/18 08:54 Dose: 20 mg Ferrous Sulfate (Feosol) 325 mg PO DAILY [facility] Last Admin: 01/17/18 08:54 Dose: 325 mg Furosemide (Lasix) 40 mg SLOW IVP DAILY [facility] Stop: 01/18/18 09:01 Last Admin: 01/17/18 08:54 Dose: 40 mg Glucagon (Glucagon) 1 mg IM PRN PRN PRN Reason: Hypoglycemia Hydralazine HCl (Apresoline) 10 mg SLOW IVP Q4H PRN PRN Reason: SBP > 170 or DBP > 100 Dextrose/Water (D5w) 1,000 mls @ 0 mls/hr IV .Q0M PRN; As Directed PRN Reason: Hypoglycemia Meropenem 1 gm/ Sodium (Chloride) 100 mls @ 200 mls/hr IVPB Q8HR [facility] Last Admin: 01/17/18 06:13 Dose: 100 mls Vancomycin HCl 1 gm/ Device 200 mls @ 200 mls/hr IVPB 0600,1800 [facility] Last Admin: 01/17/18 07:40 Dose: 200 mls Insulin Human Lispro (Humalog) 0 units SC .MILD SLIDING SCALE PRN PRN Reason: Mild Correctional Scale Last Admin: 01/17/18 06:13 Dose: 2 unit Metformin HCl (Glucophage) 1,000 mg PO BID-WM [facility] Last Admin: 01/17/18 08:53 Dose: 1,000 mg Morphine Sulfate (Morphine) 2 mg SLOW IVP Q2H PRN PRN Reason: Moderate Pain (4-6) Morphine Sulfate (Morphine) 4 mg SLOW IVP Q2H PRN PRN Reason: Severe Pain (7-10) Last Admin: 01/11/18 12:55 Dose: 4 mg Nitroglycerin (Nitrostat) 0.4 mg SL Q5MIN PRN PRN Reason: Chest Pain Ondansetron HCl (Zofran) 4 mg IVP Q6H PRN PRN Reason: Nausea/Vomiting Last Admin: 01/11/18 08:09 Dose: 4 mg Ondansetron HCl (Zofran) 4 mg IVP Q6H PRN PRN Reason: Nausea/Vomiting Promethazine HCl (Phenergan) 12.5 mg IM Q4H PRN PRN Reason: Nausea/Vomiting Senna (Senokot) 2 tab PO HSPRN PRN PRN Reason: Constipation Sodium Chloride (Flush - Normal Saline) 10 ml IVF PRN PRN PRN Reason: Saline Flush
[2018-01-17] MEDS ORDERED: Magnesium Sulfate 4 GM in Sodium Chloride 0.9% 250 ML 250 ML IVPB SCH (10:15)
[2018-01-17 13:03] LABS: INR-International Normal Ratio 1.1; Prothrombin Time 14.3 SEC (12.0-14.7)
[2018-01-17 13:04] LABS: PTT 37.9 SEC (22.9-36.1)
--- NOTE | 2018-01-17 14:32 | PRG ---
DATE OF SERVICE: 01/17/2018 SUBJECTIVE: Patient is complaining of some rash on his lower extremity. He does have some erythemat ous rash on his thighs, but no coughing or pain. OBJECTIVE: VITAL SIGNS: Sats are 92% on room air, temperature 97, blood pressure 130/76. CHEST: Reveals bilateral crackles. CARDIAC: Normal S1, S2. No gallops. ABDOMEN: Soft, no masses. LABORATORY DATA: His CT from yesterday still shows significant residual loculated pleural fluid in t he left side, atelectasis, and perisplenic fluid. IMPRESSION: 1. Loculated pleural effusion. 2. Respiratory failure. 3. Pneumonia. 4. Splenic abscess. PLAN: 1. Antibiotics per Infectious Disease. 2. He is on meropenem and vancomycin. Continue to observe the rash. 3. Refill vancomycin. We will follow.
--- NOTE | 2018-01-17 16:39 | CT ---
CT GUIDED ABDOMINAL ABSCESS ASPIRATION: 01/17/18 HISTORY: Multiloculated abdominal abscess. FINDINGS: After explaining the procedure and answering all questions, the patient was placed in the right later al decubitus position on the CT table. Left lateral approach was planned. Sterile technique buffered local anesthesia, CT guidance, and a left lateral intercostal approach were used to carefully advance a 19 gauge Yueh needle and catheter into the largest of the perisplenic fluid collections. Catheter was left to drainage. Total volume of 130 mL starr milky liquid. A portion of the liquid was sent to Pa thology for evaluation. Postprocedure imaging shows minimal residual fluid here and some decrease in size of the adjacent fluid collections. Patient tolerated the procedure well and was returned in impr selena condition. IMPRESSION: Technically successful CT guided abdominal abscess drainage. Pathology is pending. POS: VERNON
--- NOTE | 2018-01-17 20:52 | PRG ---
DATE OF SERVICE: 01/17/2018 SUBJECTIVE: Mr. Dickey is sitting up by the bedside. Now having more abdominal pain. The chest sym ptoms have improved. No headaches. No vomiting. Little bit of bowel movements mostly liquid and so ft, voiding without difficulty. OBJECTIVE: VITAL SIGNS: Temperature max 100.9 on 01/15 yesterday T-max 99.6, blood pressure 150/70, pulse 93, r espirations 20, O2 of 93%. GENERAL: Appears acutely and chronically ill. Awake, oriented. LUNGS: Diminished breath sounds in the left lower third, but better aeration than previously noted. No wheezing. HEART: S1, S2. Regular rate. ABDOMEN: Quite distended. There is diffuse erythema in the skin of the abdomen, which is blenching and encompasses the entire abdominal skin that extends to the upper extremity as well. There is mild tenderness in the upper segments of the abdomen particularly left side. No bladder distention. EXTREMITIES: No joint inflammatory activity. Moves extremities equally. NEUROLOGIC: Cognitive function appears to be intact. LABORATORY DATA: White cell count 18,000, hemoglobin 9.8, platelets 424. Sodium 131, creatinine 1.1 8, glucose 261. Vancomycin trough 16.7. Cultures, no growth thus far. We ordered a CT with abscess drainage by Dr. Hill. The left lateral approach was planned. A 19-guage needle was introduced a nd total volume of 130 mL of tanned milky liquid that was obtained. A portion of the liquid sent to pathology for evaluation. Minimum residual fluid there. ASSESSMENT: Splenic abscess with reactive pleural effusion with worsening of the abscess following a few days of treatment with antimicrobial therapy. Aspirate was successfully completed by Dr. Maliha jo and we will follow up on the results of cultures. Continue current management.
[2018-01-17] MEDS: Atorvastatin Calcium 20 MG TAB PO SCH (20:53)
--- NOTE | 2018-01-17 21:53 | PDOC.EVN ---
Event Note - Event Note Event Note: paged regarding patient concern over lasix dosing - patient feels that over the past few days he is still urinating frequently after lasix but small UOP each time he goes to the restroom patient wants to discuss his overall diuretic regimen and whether or not it should be changed tonight i have recommended that nsg help the patient place the quesiton on the whiteboard for discussion with his day team (primary and specialists)
[2018-01-18] MEDS: Meropenem 1 GM in Sodium Chloride 0.9% 100 ML IVPB SCH ×3 (05:05→22:36)
[2018-01-18 05:29] LABS: #Eosinphils 0.1 thou/uL (0.0-0.7); #Lymphocytes 0.5 thou/uL (1.20-3.40); #Monocytes 0.6 thou/uL (0.11-0.59); #Neutrophils 11.6 thou/uL (1.40-6.50); %Basophils 0.4 % (0.0-1.0); %Eosinophils 0.9 % (0.0-10.0); %Lymphocytes 3.7 % (21.0-51.0); %Monocytes 4.9 % (0.0-10.0); %Neutrophils 90.1 % (42.0-75.0); Hemoglobin 9.4 g/dL (14.0-18.0); Mean Corpuscular HGB CONC 33.9 g/dL (32.0-36.0); Mean Corpuscular Hemoglobin 28.3 pg (27.0-31.0); Mean Corpuscular Volume 83.5 fl (80.0-94.0); Mean Platelet Volume 7.4 fL (7.4-10.4); Platelet Count 331 thou/uL (130-400); Red Blood Cell (RBC) Count 3.33 mill/uL (4.70-6.10); White Blood Cell (WBC) Count 12.9 thou/uL (4.8-10.8)
[2018-01-18 05:38] LABS: Vancomycin, Trough 20.3 ug/mL
[2018-01-18 05:42] LABS: Anion Gap 12 mmol/L (10-20); BUN (Urea Nitrogen) 15 mg/dL (8.4-25.7); Calc. Creatinine Clearance 125 mL/min (70-130); Calcium 7.8 mg/dL (7.8-10.44); Carbon Dioxide 26 mmol/L (23-31); Chloride 98 mmol/L (98-107); Estimated GFR-MDRD 72; Glucose 172 mg/dL (80-115); Magnesium 1.9 mg/dL (1.6-2.6); Phosphorus 3.5 mg/dL (2.3-4.7); Sodium 133 mmol/L (136-145)
[2018-01-18] MEDS ORDERED: Vancomycin HCl 750 MG in Sodium Chloride 0.9% 250 ML 250 ML IVPB SCH ×2 (06:30→18:00)
[2018-01-18] MEDS: Vancomycin HCl 1 GM in Premix Bag 1 BAG IVPB SCH (06:37)
[2018-01-18] MEDS ORDERED: Potassium Chloride 20 MEQ TAB PO SCH ×2 (07:30)
[2018-01-18] MEDS: metFORMIN 500 MG TAB PO SCH ×2 (08:19→17:09)
[2018-01-18] MEDS: Ferrous Sulfate 325 MG TAB PO SCH (08:19)
[2018-01-18] MEDS: Famotidine 20 MG TAB PO SCH ×2 (08:19→21:41)
[2018-01-18] MEDS: Amlodipine 10 MG TAB PO SCH (08:20)
[2018-01-18] MEDS: Furosemide 40 MG/4 ML VIAL SLOW IVP SCH (08:20)
--- NOTE | 2018-01-18 09:14 | PDOC.PN ---
- Subjective Encounter Start Date: 01/18/18 Encounter Start Time: 07:10 Patient seen and examined. No overnight events, feels better overall has no BM, has leg edema - Objective MAR Reviewed: Yes Vital Signs & Weight: Vital Signs (12 hours) Temp Pulse Resp BP BP Pulse Ox 01/18/18 08:20 85 148/74 H 01/18/18 08:00 97.5 F L 85 18 148/74 H 93 L 01/18/18 04:00 97.2 F L 94 20 168/85 H 92 L 01/18/18 00:00 98.8 F Weight Weight 272 lb 3.2 oz I&O: 01/17/18 01/18/18 01/19/18 06:59 06:59 06:59 Intake Total 1850 1740 Balance 1850 1740 Result Diagrams: 01/18/18 05:13 01/18/18 05:13 Additional Labs: Accuchecks 01/18/18 01/17/18 01/17/18 05:14 20:22 16:38 POC Glucose 169 H 215 H 197 H 01/17/18 11:34 POC Glucose 261 H Phys Exam - Physical Examination Constitutional: NAD HEENT: PERRLA, moist MMs, sclera anicteric Neck: no JVD, supple Respiratory: no wheezing, no rhonchi reduced air entry left base Cardiovascular: RRR, no significant murmur, no rub Gastrointestinal: soft, non-tender, no distention, positive bowel sounds obesity+ Musculoskeletal: pulses present, edema present Neurological: non-focal, normal sensation, moves all 4 limbs Psychiatric: normal affect, A&O x 3 Skin: no rash, normal turgor Dx/Plan (1) Colonic diverticular abscess Code(s): K57.20 - DVTRCLI OF LG INT W PERFORATION AND ABSCESS W/O BLEEDING Status: Acute Comment: with splenic abscess (2) Atelectasis Status: Acute (3) 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 Code(s): K57.30 - DVRTCLOS OF LG INT W/O PERFORATION OR ABSCESS W/O BLEEDING Status: Acute Comment: with abscess formation (4) Hyponatremia Code(s): E87.1 - HYPO-OSMOLALITY AND HYPONATREMIA Status: Acute (5) Left lower lobe pneumonia Code(s): J18.1 - LOBAR PNEUMONIA, UNSPECIFIED ORGANISM Status: Acute Comment : with effusion, (6) Parapneumonic effusion Code(s): J18.9 - PNEUMONIA, UNSPECIFIED ORGANISM; J91.8 - PLEURAL EFFUSION IN OTHER CONDITIONS CLASSIFIED ELSEWHERE Status: Acute Comment: s/p throcentesis X 2 (7) Sepsis Code(s): A41.9 - SEPSIS, UNSPECIFIED ORGANISM Status: Acute (8) Anemia, normocytic normochromic Code(s): D64.9 - ANEMIA, UNSPECIFIED Status: Chronic (9) Diabetes type 2, controlled Code(s): E11.9 - TYPE 2 DIABETES MELLITUS WITHOUT COMPLICATIONS Status: Chronic (10) Dyslipidemia Code(s): E78.5 - HYPERLIPIDEMIA, UNSPECIFIED Status: Chronic (11) Hypertension Code(s): I10 - ESSENTIAL (PRIMARY) HYPERTENSION Status: Chronic (12) Morbid obesity with BMI of 40.0-44.9, adult Code(s): E66.01 - MORBID (SEVERE) OBESITY DUE TO EXCESS CALORIES; Z68.41 - BODY MASS INDEX (BMI) 40.0-44.9, ADULT Status: Chronic (13) Hypomagnesemia Code(s): E83.42 - HYPOMAGNESEMIA Status: Acute (14) Hypokalemia Code(s): E87.6 - HYPOKALEMIA Status: Acute - Plan cont current plan of care, plan discussed w/ family, continue antibiotics, 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 * discussed with son * add zaroxolyn for diuresis Review of Systems - Review of Systems Constitutional: negative: fever, chills, sweats, weakness, malaise, other ENT: negative: Ear Pain, Ear Discharge, Nose Pain, Nose Discharge, Nose Congestion, Mouth Pain, Mouth Swelling, Throat Pain, Throat Swelling, Other Respiratory: negative: Cough, Dry, Shortness of Breath, Hemoptysis, SOB with Excertion, Pleuritic Pain, Sputum, Wheezing Cardiovascular: edema. negative: chest pain, palpitations, orthopnea, paroxysmal nocturnal dyspnea, light headedness, other Gastrointestinal: Constipation. negative: Nausea, Vomiting, Abdominal Pain, Diarrhea, Melena, Hematochezia, Other Genitourinary: negative: Dysuria, Frequency, Incontinence, Hematuria, Retention , Other Musculoskeletal: negative: Neck Pain, Shoulder Pain, Arm Pain, Back Pain, Hand Pain, Leg Pain, Foot Pain, Other Skin: negative: Rash, Lesions, Saeid, Bruising, Other - Medications/Allergies Allergies/Adverse Reactions: Allergies Allergy/AdvReac Type Severity Reaction Status Date / Time Penicillins Allergy Verified 01/10/18 23:21 Medications: Current Medications Acetaminophen (Tylenol) 650 mg PO Q4H PRN PRN Reason: Headache/Fever or Pain Last Admin: 01/15/18 18:02 Dose: 650 mg Albuterol/Ipratropium (Duoneb) 3 ml NEB Q4H PRN PRN Reason: Wheezing Amlodipine Besylate (Norvasc) 10 mg PO DAILY [facility] Last Admin: 01/18/18 08:20 Dose: 10 mg Atorvastatin Calcium (Lipitor) 20 mg PO HS [facility] Last Admin: 01/17/18 20:53 Dose: 20 mg Bisacodyl (Dulcolax) 10 mg PO DAILYPRN PRN PRN Reason: Constipation Last Admin: 01/17/18 20:53 Dose: 10 mg Dextrose/Water (Dextrose 50%) 25 gm SLOW IVP PRN PRN PRN Reason: Hypoglycemia Diphenhydramine HCl (Benadryl) 25 mg PO Q6H PRN PRN Reason: Itching & Insomnia Last Admin: 01/16/18 03:51 Dose: 25 mg Famotidine (Pepcid) 20 mg PO Q12HR [facility] Last Admin: 01/18/18 08:19 Dose: 20 mg Ferrous Sulfate (Feosol) 325 mg PO DAILY [facility] Last Admin: 01/18/18 08:19 Dose: 325 mg Glucagon (Glucagon) 1 mg IM PRN PRN PRN Reason: Hypoglycemia Hydralazine HCl (Apresoline) 10 mg SLOW IVP Q4H PRN PRN Reason: SBP > 170 or DBP > 100 Dextrose/Water (D5w) 1,000 mls @ 0 mls/hr IV .Q0M PRN; As Directed PRN Reason: Hypoglycemia Meropenem 1 gm/ Sodium (Chloride) 100 mls @ 200 mls/hr IVPB Q8HR [facility] Last Admin: 01/18/18 05:05 Dose: 100 mls Vancomycin HCl 750 mg/ Sodium (Chloride) 250 mls @ 250 mls/hr IVPB 0600,1800 GAGE Insulin Human Lispro (Humalog) 0 units SC .MILD SLIDING SCALE PRN PRN Reason: Mild Correctional Scale Last Admin: 01/17/18 17:23 Dose: 2 unit Metformin HCl (Glucophage) 1,000 mg PO BID-WM [facility] Last Admin: 01/18/18 08:19 Dose: 1,000 mg Morphine Sulfate (Morphine) 2 mg SLOW IVP Q2H PRN PRN Reason: Moderate Pain (4-6) Morphine Sulfate (Morphine) 4 mg SLOW IVP Q2H PRN PRN Reason: Severe Pain (7-10) Last Admin: 01/11/18 12:55 Dose: 4 mg Nitroglycerin (Nitrostat) 0.4 mg SL Q5MIN PRN PRN Reason: Chest Pain Ondansetron HCl (Zofran) 4 mg IVP Q6H PRN PRN Reason: Nausea/Vomiting Last Admin: 01/11/18 08:09 Dose: 4 mg Ondansetron HCl (Zofran) 4 mg IVP Q6H PRN PRN Reason: Nausea/Vomiting Promethazine HCl (Phenergan) 12.5 mg IM Q4H PRN PRN Reason: Nausea/Vomiting Senna (Senokot) 2 tab PO HSPRN PRN PRN Reason: Constipation Sodium Chloride (Flush - Normal Saline) 10 ml IVF PRN PRN PRN Reason: Saline Flush Last Admin: 01/17/18 11:28 Dose: 10 ml
[2018-01-18] MEDS ORDERED: Metolazone 5 MG TAB PO SCH (09:30)
[2018-01-18] MEDS ORDERED: Fleet Enema 133 ML BOT PR SCH (09:45)
[2018-01-18] MEDS: HumaLOG 300 UNITS/3 ML VIAL SC PRN ×2 (11:37→17:11)
--- NOTE | 2018-01-18 15:09 | PRG ---
DATE OF SERVICE: 01/18/2018 SUBJECTIVE: He denies any difficulty breathing. OBJECTIVE: VITAL SIGNS: Blood pressure 148/75, sats are 92% on room air, temperature 97, pulse 80, respiratory rate 18. CHEST: Decreased breath sounds, crackles and rhonchi, left greater than right. CARDIAC: Normal S1, S2. No gallops. ABDOMEN: Soft. No masses. LABORATORY DATA: White count 12,000, hemoglobin and hematocrit is 9 and 27, and platelet count is 33 1. Electrolytes are normal. Sodium 130 presently. IMPRESSION: 1. Multiple pleural effusion, loculated, status post drainage. 2. Severe deconditioning. PLAN: Continue antibiotics as per Infectious Disease, meropenem, vancomycin, PT and supportive care.
[2018-01-18] MEDS: Acetaminophen 325 MG TAB PO PRN ×2 (18:30→22:36)
[2018-01-18] MEDS: Atorvastatin Calcium 20 MG TAB PO SCH (21:41)
[2018-01-19] MEDS: Acetaminophen 325 MG TAB PO PRN ×2 (02:24→17:54)
[2018-01-19 05:06] LABS: Anion Gap 10 mmol/L (10-20); BUN (Urea Nitrogen) 14 mg/dL (8.4-25.7); Calc. Creatinine Clearance 129 mL/min (70-130); Carbon Dioxide 28 mmol/L (23-31); Chloride 95 mmol/L (98-107); Estimated GFR-MDRD 75; Glucose 139 mg/dL (80-115); Magnesium 1.8 mg/dL (1.6-2.6); Sodium 130 mmol/L (136-145)
[2018-01-19 05:09] LABS: Potassium 2.8 mmol/L (3.5-5.1)
[2018-01-19] MEDS: Meropenem 1 GM in Sodium Chloride 0.9% 100 ML IVPB SCH ×3 (05:30→21:25)
[2018-01-19] MEDS: metFORMIN 500 MG TAB PO SCH ×2 (09:08→17:54)
[2018-01-19] MEDS: Famotidine 20 MG TAB PO SCH ×2 (09:09→20:15)
[2018-01-19] MEDS: Potassium Chloride 20 MEQ TAB PO SCH ×4 (09:10→17:54)
[2018-01-19] MEDS: Ferrous Sulfate 325 MG TAB PO SCH (09:11)
[2018-01-19] MEDS: Amlodipine 10 MG TAB PO SCH (09:12)
--- NOTE | 2018-01-19 09:53 | OP ---
DATE OF PROCEDURE: 01/13/2018 SERVICE: Pulmonary Medicine. PROCEDURE: Left-sided pleural drainage with catheter insertion under ultrasound guidance. CONSENT: Risks and benefits of this procedure were explained to the patient. All questions were ans wered and alternative options explained. STAFF PHYSICIAN: Bassam Anaya M.D. MEDICATIONS USED: Lidocaine 1% without epinephrine, total quantity 10 mL. PREOPERATIVE DIAGNOSES: 1. Community-acquired pneumonia. 2. Pleural effusion. POSTOPERATIVE DIAGNOSES: 1. Community-acquired pneumonia. 2. Pleural effusion. DESCRIPTION OF PROCEDURE: A timeout was performed by the procedure team and patient. The patient wa s positively identified using name and date of . The procedure site was marked. Vital sign mon itoring was accomplished by noninvasive hemodynamic monitoring, pulse oximetry, and telemetry. In the seated position, the left posterior hemithorax was examined using ultrasound probe. The diaph ragm and pleural fluid were easily identified. The skin was prepped and draped in sterile fashion an d anesthetized with 1% lidocaine without epinephrine. A finder needle was inserted in the pleural sp serafin with return of increasingly clear yellow pleural fluid. A pleural drainage catheter was inserted in the same location. A total quantity of 650 mL of the same clear yellow fluid was withdrawn by sy ringe pump technique. A sample was sent for analysis. Evacuation of fluid was terminated because th e fluid stopped coming. At the end of the procedure, the estimated pleural pressure measured by mano metry was -14 cm of pleural fluid. The intact catheter was withdrawn on exhalation and a sterile cherrie ssing was applied. The patient had stable vitals throughout the entire procedure. ESTIMATED BLOOD LOSS: 3 mL. COMPLICATIONS: None.
[2018-01-19] MEDS: HumaLOG 300 UNITS/3 ML VIAL SC PRN (12:26)
--- NOTE | 2018-01-19 12:40 | PRG ---
DATE OF SERVICE: 01/19/2018 SERVICE: Pulmonary Medicine. INTERVAL HISTORY: The patient is doing fantastic from a cardiovascular and respiratory standpoint. He denies any shortness of breath or chest discomfort. His breathing gets better day by day. He is being diuresed. The first couple of days of Lasix, did induce much for him. He was given a couple d oses of metolazone and he is really opened up quite a bit. PHYSICAL EXAMINATION: VITAL SIGNS: Afebrile, pulse 82, blood pressure 144/81, respirations 20, saturation 95% on room air. GENERAL: The patient is awake, alert, in no apparent distress. LUNGS: Decent air entry. There is no prolonged expiratory phase. Dependent crackles are minimal. There is a less air entry in the left base. He is moving better air there however. HEART: Normal rate, regular. ABDOMEN: Soft, nontender, nondistended. Bowel sounds are positive. MUSCULOSKELETAL: No cyanosis or clubbing. No pitting in the bilateral lower extremities. NEUROLOGIC: Grossly nonfocal. LABORATORY DATA: Potassium 2.8. Creatinine 1.0, bicarbonate 28 and gently up trending. Magnesium 1 .8. Culture results remain negative today. ASSESSMENT: 1. Acute hypoxic respiratory failure. 2. Community-acquired pneumonia. 3. Uncomplicated parapneumonic pleural effusion, status post thoracentesis x2. 4. Splenic abscesses, multiple. 5. Abdominal abscess status post IR drainage. DISCUSSION AND PLAN: We will replace the potassium and magnesium today. We will continue to diurese the patient until he returns close to euvolemia. From my perspective, he can be transitioned out of the hospital. Will need a repeat chest x-ray in 4-6 weeks in the outpatient setting.
[2018-01-19] MEDS ORDERED: Magnesium 2 GM/NS 0.9% 50 ML 2 GM in Premix Bag 1 BAG IVPB SCH (12:45)
[2018-01-19] MEDS ORDERED: Magnesium Sulfate 2 GM in Sodium Chloride 0.9% 100 ML IVPB SCH (12:45)
[2018-01-19] MEDS: Atorvastatin Calcium 20 MG TAB PO SCH (20:16)
[2018-01-19] MEDS: Bisacodyl 5 MG TAB PO PRN (20:16)
[2018-01-20 05:06] LABS: Anion Gap 10 mmol/L (10-20); BUN (Urea Nitrogen) 14 mg/dL (8.4-25.7); Calc. Creatinine Clearance 133 mL/min (70-130); Carbon Dioxide 29 mmol/L (23-31); Chloride 93 mmol/L (98-107); Estimated GFR-MDRD 78; Glucose 142 mg/dL (80-115); Magnesium 1.8 mg/dL (1.6-2.6); Sodium 129 mmol/L (136-145)
[2018-01-20 05:12] LABS: Potassium 2.9 mmol/L (3.5-5.1)
[2018-01-20] MEDS: Meropenem 1 GM in Sodium Chloride 0.9% 100 ML IVPB SCH ×3 (05:22→21:59)
[2018-01-20] MEDS ORDERED: Potassium Chloride 40 MEQ in Sodium Chloride 0.9% 250 ML 250 ML IVPB SCH (06:00)
[2018-01-20] MEDS: Amlodipine 10 MG TAB PO SCH (08:04)
[2018-01-20] MEDS: Ferrous Sulfate 325 MG TAB PO SCH (08:05)
[2018-01-20] MEDS: Potassium Chloride 20 MEQ TAB PO SCH ×6 (08:06→17:27)
[2018-01-20] MEDS: metFORMIN 500 MG TAB PO SCH ×2 (08:07→17:26)
[2018-01-20] MEDS: Famotidine 20 MG TAB PO SCH ×2 (08:11→21:58)
[2018-01-20] MEDS ORDERED: guaiFENesin ER 600 MG TAB PO SCH (09:45)
[2018-01-20] MEDS ORDERED: Magnesium 2 GM/NS 0.9% 50 ML 2 GM in Premix Bag 1 BAG IVPB SCH (09:45)
[2018-01-20] MEDS ORDERED: Furosemide 40 MG/4 ML VIAL SLOW IVP SCH (09:45)
[2018-01-20] MEDS ORDERED: Magnesium Sulfate 2 GM in Sodium Chloride 0.9% 100 ML IVPB SCH (09:45)
[2018-01-20] MEDS ORDERED: Enoxaparin Sodium 40 MG/0.4 ML SYRINGE SC SCH (09:45)
--- NOTE | 2018-01-20 10:12 | PRG ---
DATE OF SERVICE: 01/20/2018 SERVICE: Pulmonary Medicine INTERVAL HISTORY: The patient is breathing comfortably. No chest discomfort, nausea, vomiting or sh ortness of breath. He seems to have increasing lower extremity swelling. He also notes intermittent gas discomfort as well as some cough that is intermittently productive. PHYSICAL EXAMINATION: VITAL SIGNS: Afebrile, pulse 83, blood pressure 153/78, respirations 16, saturation 94% on room air. GENERAL: The patient is awake, alert, in no apparent distress. LUNGS: Decent air entry on the right. The left has reduced air entry. There is a little bit of scraper meat ckling at the left base. HEART: Normal rate, regular. ABDOMEN: Soft, nontender, nondistended. Bowel sounds are positive. MUSCULOSKELETAL: No cyanosis or clubbing. There is diffuse 2-3+ pitting throughout the lower extrem ities. GENITOURINARY: No Walker. NEUROLOGIC: Grossly nonfocal. LABORATORY DATA: Sodium 129, potassium 2.9, chloride 93. Creatinine 0.97 and down trending. Magnes ium 1.8. Basic metabolic profile is otherwise unremarkable. Microbiology is negative to date. ASSESSMENT: 1. Acute hypoxic respiratory failure. 2. Community-acquired pneumonia. 3. Uncomplicated parapneumonic pleural effusion, status post thoracentesis x2. 4. Splenic abscesses, multiple. 5. Abdominal abscess status post IR drainage. PLAN: We will replace the potassium once again. I will repeat CBC, and basic metabolic profile gabrielle rrow morning. Ultrasound of bilateral lower extremities will be performed. Simethicone, and Mucinex will be provided. From my perspective, there are no respiratory issues that are keeping him in the hospital. He will require repeat chest x-ray in 4-6 weeks in the outpatient setting and we will scre en for sleep apnea at that time.
--- NOTE | 2018-01-20 11:08 | PDOC.PN ---
- Subjective Encounter Start Date: 01/20/18 Encounter Start Time: 08:30 Patient seen and examined. No new complaints. No overnight events - Objective MAR Reviewed: Yes Vital Signs & Weight: Vital Signs (12 hours) Temp Pulse Resp BP BP Pulse Ox 01/20/18 08:04 86 158/78 H 01/20/18 08:00 98.4 F 86 16 153/78 H 94 L Weight Weight 272 lb 3.2 oz I&O: 01/19/18 01/20/18 01/21/18 06:59 06:59 06:59 Intake Total 1510 1320 Output Total 400 Balance 1110 1320 Result Diagrams: 01/18/18 05:13 01/20/18 04:09 Additional Labs: Accuchecks 01/20/18 01/20/18 01/19/18 04:50 00:31 19:51 POC Glucose 151 H 129 H 171 H 01/19/18 01/19/18 16:58 11:58 POC Glucose 177 H 168 H Phys Exam - Physical Examination Constitutional: NAD HEENT: PERRLA, moist MMs, sclera anicteric Neck: no JVD, supple Respiratory: no wheezing, no rhonchi reduced air entry left side Cardiovascular: RRR, no significant murmur, no rub Gastrointestinal: soft, non-tender, no distention, positive bowel sounds obesity+ Musculoskeletal: pulses present, edema present Neurological: non-focal, normal sensation, moves all 4 limbs Lymphatic: no nodes Psychiatric: normal affect, A&O x 3 Skin: no rash, normal turgor Dx/Plan (1) Colonic diverticular abscess Code(s): K57.20 - DVTRCLI OF LG INT W PERFORATION AND ABSCESS W/O BLEEDING Status: Acute Comment: with splenic abscess (2) Atelectasis Status: Acute (3) 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 Code(s): K57.30 - DVRTCLOS OF LG INT W/O PERFORATION OR ABSCESS W/O BLEEDING Status: Acute Comment: with abscess formation (4) Hyponatremia Code(s): E87.1 - HYPO-OSMOLALITY AND HYPONATREMIA Status: Acute (5) Left lower lobe pneumonia Code(s): J18.1 - LOBAR PNEUMONIA, UNSPECIFIED ORGANISM Status: Acute Comment : with effusion, (6) Parapneumonic effusion Code(s): J18.9 - PNEUMONIA, UNSPECIFIED ORGANISM; J91.8 - PLEURAL EFFUSION IN OTHER CONDITIONS CLASSIFIED ELSEWHERE Status: Acute Comment: s/p throcentesis X 2 (7) Sepsis Code(s): A41.9 - SEPSIS, UNSPECIFIED ORGANISM Status: Acute (8) Anemia, normocytic normochromic Code(s): D64.9 - ANEMIA, UNSPECIFIED Status: Chronic (9) Diabetes type 2, controlled Code(s): E11.9 - TYPE 2 DIABETES MELLITUS WITHOUT COMPLICATIONS Status: Chronic (10) Dyslipidemia Code(s): E78.5 - HYPERLIPIDEMIA, UNSPECIFIED Status: Chronic (11) Hypertension Code(s): I10 - ESSENTIAL (PRIMARY) HYPERTENSION Status: Chronic (12) Morbid obesity with BMI of 40.0-44.9, adult Code(s): E66.01 - MORBID (SEVERE) OBESITY DUE TO EXCESS CALORIES; Z68.41 - BODY MASS INDEX (BMI) 40.0-44.9, ADULT Status: Chronic (13) Hypomagnesemia Code(s): E83.42 - HYPOMAGNESEMIA Status: Acute - Plan cont current plan of care, 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 Review of Systems - Review of Systems Constitutional: negative: fever, chills, sweats, weakness, malaise, other Eyes: negative: Pain, Vision Change, Conjunctivae Inflammation, Eyelid Inflammation, Redness, Other ENT: negative: Ear Pain, Ear Discharge, Nose Pain, Nose Discharge, Nose Congestion, Mouth Pain, Mouth Swelling, Throat Pain, Throat Swelling, Other Respiratory: Cough, Shortness of Breath. negative: Dry, Hemoptysis, SOB with Excertion, Pleuritic Pain, Sputum, Wheezing Cardiovascular: edema. negative: chest pain, palpitations, orthopnea, paroxysmal nocturnal dyspnea, light headedness, other Gastrointestinal: negative: Nausea, Vomiting, Abdominal Pain, Diarrhea, Constipation, Melena, Hematochezia, Other Genitourinary: negative: Dysuria, Frequency, Incontinence, Hematuria, Retention , Other Musculoskeletal: negative: Neck Pain, Shoulder Pain, Arm Pain, Back Pain, Hand Pain, Leg Pain, Foot Pain, Other - Medications/Allergies Allergies/Adverse Reactions: Allergies Allergy/AdvReac Type Severity Reaction Status Date / Time Penicillins Allergy Verified 01/10/18 23:21 Medications: Current Medications Acetaminophen (Tylenol) 650 mg PO Q4H PRN PRN Reason: Headache/Fever or Pain Last Admin: 01/19/18 17:54 Dose: 650 mg Albuterol/Ipratropium (Duoneb) 3 ml NEB Q4H PRN PRN Reason: Wheezing Amlodipine Besylate (Norvasc) 10 mg PO DAILY [facility] Last Admin: 01/20/18 08:04 Dose: 10 mg Atorvastatin Calcium (Lipitor) 20 mg PO HS [facility] Last Admin: 01/19/18 20:16 Dose: 20 mg Bisacodyl (Dulcolax) 10 mg PO DAILYPRN PRN PRN Reason: Constipation Last Admin: 01/19/18 20:16 Dose: 10 mg Dextrose/Water (Dextrose 50%) 25 gm SLOW IVP PRN PRN PRN Reason: Hypoglycemia Diphenhydramine HCl (Benadryl) 25 mg PO Q6H PRN PRN Reason: Itching & Insomnia Last Admin: 01/16/18 03:51 Dose: 25 mg Enoxaparin Sodium (Lovenox) 40 mg SC 0900 [facility] Famotidine (Pepcid) 20 mg PO Q12HR [facility] Last Admin: 01/20/18 08:11 Dose: 20 mg Ferrous Sulfate (Feosol) 325 mg PO DAILY [facility] Last Admin: 01/20/18 08:05 Dose: 325 mg Furosemide (Lasix) 40 mg SLOW IVP DAILY [facility] Glucagon (Glucagon) 1 mg IM PRN PRN PRN Reason: Hypoglycemia Guaifenesin (Mucinex) 1,200 mg PO Q12HR [facility] Hydralazine HCl (Apresoline) 10 mg SLOW IVP Q4H PRN PRN Reason: SBP > 170 or DBP > 100 Dextrose/Water (D5w) 1,000 mls @ 0 mls/hr IV .Q0M PRN; As Directed PRN Reason: Hypoglycemia Meropenem 1 gm/ Sodium (Chloride) 100 mls @ 200 mls/hr IVPB Q8HR [facility] Last Admin: 01/20/18 05:22 Dose: 100 mls Magnesium Sulfate 2 gm/ Device 50 mls @ 200 mls/hr IVPB ONE [facility] Stop: 01/20/18 12:00 Insulin Human Lispro (Humalog) 0 units SC .MILD SLIDING SCALE PRN PRN Reason: Mild Correctional Scale Last Admin: 01/19/18 12:26 Dose: 2 unit Metformin HCl (Glucophage) 1,000 mg PO BID-[facility] Last Admin: 01/20/18 08:07 Dose: 1,000 mg Morphine Sulfate (Morphine) 2 mg SLOW IVP Q2H PRN PRN Reason: Moderate Pain (4-6) Nitroglycerin (Nitrostat) 0.4 mg SL Q5MIN PRN PRN Reason: Chest Pain Ondansetron HCl (Zofran) 4 mg IVP Q6H PRN PRN Reason: Nausea/Vomiting Last Admin: 01/11/18 08:09 Dose: 4 mg Potassium [facility] ([facility] Last Admin: 01/20/18 08:10 Dose: Not Given Promethazine HCl (Phenergan) 12.5 mg IM Q4H PRN PRN Reason: Nausea/Vomiting Senna (Senokot) 2 tab PO HSPRN PRN PRN Reason: Constipation Simethicone (Mylicon Chewable) 80 mg PO TID [facility] Stop: 01/22/18 09:01 Sodium Chloride (Flush - Normal Saline) 10 ml IVF PRN PRN PRN Reason: Saline Flush Last Admin: 01/17/18 11:28 Dose: 10 ml
--- NOTE | 2018-01-20 12:38 | ULT ---
BILATERAL LOWER EXTREMITY VENOUS ULTRASOUND WITH DOPPLER: HISTORY: Bilateral extremity swelling, edema, and erythema. COMPARISON: None. TECHNIQUE: Mansfield-scale, color-flow, and Doppler imaging with spectral wave-form analysis was performed of the lef t and right lower extremity venous system. FINDINGS: Bilaterally, there is compressibility, presence of flow, and augmentation in the common femoral veins , femoral veins, and popliteal veins. There is flow in the bilateral greater saphenous vein, poplite al vein, and posterior tibial vein. IMPRESSION: No evidence of thrombus in the left or right lower extremity deep venous system. POS: SID
[2018-01-20] MEDS: Simethicone Chewable 80 MG TAB PO SCH ×2 (14:51→21:59)
--- NOTE | 2018-01-20 15:40 | PRG ---
DATE OF SERVICE: 01/20/2018 SUBJECTIVE: Sitting by the bedside. He is awake, breathing well. No cough, no chest pain, a little bit of sensation of tenderness and tightness in the mid abdominal region in a band-like fashion. Vo iding without difficulty. No diarrhea. OBJECTIVE: VITAL SIGNS: His temperature has been normal. BP 150/78, pulse 86, respirations 16, O2 sat 94%. GENERAL: Appears no distress, oriented. HEENT: Ocular movements conjugate. LUNGS: Complete clearing of the previously noted inspiratory crackles in the left lower base. HEART: S1, S2, regular rate. ABDOMEN: Moderately distended, but not tender. No ascites noted. EXTREMITIES: Moves all extremities equally. LABORATORY DATA: White cell count 12.9, hemoglobin 9.4, platelets 331, creatinine 0.97. Microbiolog y with yet pending spleen aspirate. The acid-fast stain was negative. ASSESSMENT AND DISCUSSION: Splenic abscess with reactive pleural effusion with improvement after the thoracentesis and then improvement after the percutaneous aspirate done by Radiology Dr. Hill few days ago. Continue meropenem in the outpatient setting. The patient to be transferred to [facility] and date of therapy is 03/03/2018. Weekly labs. Follow up in the clinic.
[2018-01-20] MEDS: guaiFENesin ER 600 MG TAB PO SCH (21:58)
[2018-01-20] MEDS: Atorvastatin Calcium 20 MG TAB PO SCH (21:58)
[2018-01-20] MEDS: Acetaminophen 325 MG TAB PO PRN (22:01)
[2018-01-21] MEDS: Meropenem 1 GM in Sodium Chloride 0.9% 100 ML IVPB SCH ×2 (05:20→13:32)
[2018-01-21 06:35] LABS: #Basophils 0.1 thou/uL (0.0-0.2); #Eosinphils 0.2 thou/uL (0.0-0.7); #Monocytes 0.9 thou/uL (0.11-0.59); #Neutrophils 6.8 thou/uL (1.40-6.50); %Basophils 0.7 % (0.0-1.0); %Eosinophils 2.6 % (0.0-10.0); %Lymphocytes 10.9 % (21.0-51.0); %Monocytes 9.9 % (0.0-10.0); %Neutrophils 75.9 % (42.0-75.0); Hemoglobin 9.5 g/dL (14.0-18.0); Mean Corpuscular Hemoglobin 28.4 pg (27.0-31.0); Mean Corpuscular Volume 83.5 fl (80.0-94.0); Mean Platelet Volume 7.1 fL (7.4-10.4); Platelet Count 419 thou/uL (130-400); RBC Distribution Width 13.8 % (11.5-14.5); Red Blood Cell (RBC) Count 3.34 mill/uL (4.70-6.10)
[2018-01-21 06:43] LABS: Anion Gap 11 mmol/L (10-20); BUN (Urea Nitrogen) 14 mg/dL (8.4-25.7); Calc. Creatinine Clearance 121 mL/min (70-130); Calcium 8.2 mg/dL (7.8-10.44); Carbon Dioxide 29 mmol/L (23-31); Chloride 94 mmol/L (98-107); Estimated GFR-MDRD 70; Glucose 141 mg/dL (80-115); Magnesium 1.9 mg/dL (1.6-2.6); Potassium 3.3 mmol/L (3.5-5.1); Sodium 131 mmol/L (136-145)
--- NOTE | 2018-01-21 08:46 | PDOC.PN ---
- Subjective Encounter Start Date: 01/21/18 Encounter Start Time: 06:50 Patient seen and examined. No new complaints. No overnight events - Objective MAR Reviewed: Yes Vital Signs & Weight: Vital Signs (12 hours) Temp Pulse Resp BP BP Pulse Ox 01/21/18 07:21 97.6 F 86 20 125/60 91 L 01/20/18 21:00 97.7 F 87 16 128/71 94 L Weight Weight 272 lb 3.2 oz I&O: 01/20/18 01/21/18 01/22/18 06:59 06:59 06:59 Intake Total 1320 1970 Balance 1320 1970 Result Diagrams: 01/21/18 06:15 01/21/18 06:15 Additional Labs: Accuchecks 01/21/18 01/20/18 01/20/18 05:23 21:46 16:02 POC Glucose 140 H 145 H 153 H 01/20/18 11:10 POC Glucose 158 H Phys Exam - Physical Examination Constitutional: NAD HEENT: PERRLA, moist MMs, sclera anicteric Neck: no JVD, supple Respiratory: no wheezing, no rales, no rhonchi Cardiovascular: RRR, no significant murmur, no rub Gastrointestinal: soft, non-tender, no distention, positive bowel sounds Musculoskeletal: no edema, pulses present Neurological: non-focal, normal sensation, moves all 4 limbs Psychiatric: normal affect, A&O x 3 Skin: no rash, normal turgor Dx/Plan (1) Colonic diverticular abscess Code(s): K57.20 - DVTRCLI OF LG INT W PERFORATION AND ABSCESS W/O BLEEDING Status: Acute Comment: with splenic abscess (2) Atelectasis Status: Acute (3) 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 Code(s): K57.30 - DVRTCLOS OF LG INT W/O PERFORATION OR ABSCESS W/O BLEEDING Status: Acute Comment: with abscess formation (4) Hyponatremia Code(s): E87.1 - HYPO-OSMOLALITY AND HYPONATREMIA Status: Acute (5) Left lower lobe pneumonia Code(s): J18.1 - LOBAR PNEUMONIA, UNSPECIFIED ORGANISM Status: Acute Comment : with effusion, (6) Parapneumonic effusion Code(s): J18.9 - PNEUMONIA, UNSPECIFIED ORGANISM; J91.8 - PLEURAL EFFUSION IN OTHER CONDITIONS CLASSIFIED ELSEWHERE Status: Acute Comment: s/p throcentesis X 2 (7) Sepsis Code(s): A41.9 - SEPSIS, UNSPECIFIED ORGANISM Status: Acute (8) Anemia, normocytic normochromic Code(s): D64.9 - ANEMIA, UNSPECIFIED Status: Chronic (9) Diabetes type 2, controlled Code(s): E11.9 - TYPE 2 DIABETES MELLITUS WITHOUT COMPLICATIONS Status: Chronic (10) Dyslipidemia Code(s): E78.5 - HYPERLIPIDEMIA, UNSPECIFIED Status: Chronic (11) Hypertension Code(s): I10 - ESSENTIAL (PRIMARY) HYPERTENSION Status: Chronic (12) Morbid obesity with BMI of 40.0-44.9, adult Code(s): E66.01 - MORBID (SEVERE) OBESITY DUE TO EXCESS CALORIES; Z68.41 - BODY MASS INDEX (BMI) 40.0-44.9, ADULT Status: Chronic (13) Hypomagnesemia Code(s): E83.42 - HYPOMAGNESEMIA Status: Acute - Plan cont current plan of care, continue antibiotics, 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 Review of Systems - Review of Systems Eyes: negative: Pain, Vision Change, Conjunctivae Inflammation, Eyelid Inflammation, Redness, Other ENT: negative: Ear Pain, Ear Discharge, Nose Pain, Nose Discharge, Nose Congestion, Mouth Pain, Mouth Swelling, Throat Pain, Throat Swelling, Other Respiratory: negative: Cough, Dry, Shortness of Breath, Hemoptysis, SOB with Excertion, Pleuritic Pain, Sputum, Wheezing Cardiovascular: negative: chest pain, palpitations, orthopnea, paroxysmal nocturnal dyspnea, edema, light headedness, other Gastrointestinal: negative: Nausea, Vomiting, Abdominal Pain, Diarrhea, Constipation, Melena, Hematochezia, Other Genitourinary: negative: Dysuria, Frequency, Incontinence, Hematuria, Retention , Other Musculoskeletal: negative: Neck Pain, Shoulder Pain, Arm Pain, Back Pain, Hand Pain, Leg Pain, Foot Pain, Other Skin: negative: Rash, Lesions, Saeid, Bruising, Other - Medications/Allergies Allergies/Adverse Reactions: Allergies Allergy/AdvReac Type Severity Reaction Status Date / Time Penicillins Allergy Verified 01/10/18 23:21 Medications: Current Medications Acetaminophen (Tylenol) 650 mg PO Q4H PRN PRN Reason: Headache/Fever or Pain Last Admin: 01/20/18 22:01 Dose: 650 mg Albuterol/Ipratropium (Duoneb) 3 ml NEB Q4H PRN PRN Reason: Wheezing Amlodipine Besylate (Norvasc) 10 mg PO DAILY [facility] Last Admin: 01/20/18 08:04 Dose: 10 mg Atorvastatin Calcium (Lipitor) 20 mg PO HS [facility] Last Admin: 01/20/18 21:58 Dose: 20 mg Bisacodyl (Dulcolax) 10 mg PO DAILYPRN PRN PRN Reason: Constipation Last Admin: 01/19/18 20:16 Dose: 10 mg Dextrose/Water (Dextrose 50%) 25 gm SLOW IVP PRN PRN PRN Reason: Hypoglycemia Diphenhydramine HCl (Benadryl) 25 mg PO Q6H PRN PRN Reason: Itching & Insomnia Last Admin: 01/16/18 03:51 Dose: 25 mg Enoxaparin Sodium (Lovenox) 40 mg SC 0900 [facility] Famotidine (Pepcid) 20 mg PO Q12HR [facility] Last Admin: 01/20/18 21:58 Dose: 20 mg Ferrous Sulfate (Feosol) 325 mg PO DAILY [facility] Last Admin: 01/20/18 08:05 Dose: 325 mg Furosemide (Lasix) 40 mg SLOW IVP DAILY [facility] Glucagon (Glucagon) 1 mg IM PRN PRN PRN Reason: Hypoglycemia Guaifenesin (Mucinex) 1,200 mg PO Q12HR [facility] Last Admin: 01/20/18 21:58 Dose: 1,200 mg Hydralazine HCl (Apresoline) 10 mg SLOW IVP Q4H PRN PRN Reason: SBP > 170 or DBP > 100 Dextrose/Water (D5w) 1,000 mls @ 0 mls/hr IV .Q0M PRN; As Directed PRN Reason: Hypoglycemia Meropenem 1 gm/ Sodium (Chloride) 100 mls @ 200 mls/hr IVPB Q8HR [facility] Last Admin: 01/21/18 05:20 Dose: 100 mls Insulin Human Lispro (Humalog) 0 units SC .MILD SLIDING SCALE PRN PRN Reason: Mild Correctional Scale Last Admin: 01/19/18 12:26 Dose: 2 unit Metformin HCl (Glucophage) 1,000 mg PO BID-[facility] Last Admin: 01/20/18 17:26 Dose: 1,000 mg Morphine Sulfate (Morphine) 2 mg SLOW IVP Q2H PRN PRN Reason: Moderate Pain (4-6) Nitroglycerin (Nitrostat) 0.4 mg SL Q5MIN PRN PRN Reason: Chest Pain Ondansetron HCl (Zofran) 4 mg IVP Q6H PRN PRN Reason: Nausea/Vomiting Last Admin: 01/11/18 08:09 Dose: 4 mg Potassium Chloride (K-Dur) 40 meq PO BID-[facility] Last Admin: 01/20/18 17:27 Dose: 40 meq Promethazine HCl (Phenergan) 12.5 mg IM Q4H PRN PRN Reason: Nausea/Vomiting Senna (Senokot) 2 tab PO HSPRN PRN PRN Reason: Constipation Simethicone (Mylicon Chewable) 80 mg PO TID [facility] Stop: 01/22/18 09:01 Last Admin: 01/20/18 21:59 Dose: 80 mg Sodium Chloride (Flush - Normal Saline) 10 ml IVF PRN PRN PRN Reason: Saline Flush Last Admin: 01/17/18 11:28 Dose: 10 ml
[2018-01-21] MEDS ORDERED: Enoxaparin Sodium 40 MG/0.4 ML SYRINGE SC SCH (09:00)
[2018-01-21] MEDS ORDERED: Furosemide 40 MG/4 ML VIAL SLOW IVP SCH (09:00)
[2018-01-21] MEDS: Potassium Chloride 20 MEQ TAB PO SCH ×2 (09:18)
[2018-01-21] MEDS: metFORMIN 500 MG TAB PO SCH (09:18)
[2018-01-21] MEDS: Famotidine 20 MG TAB PO SCH (09:19)
[2018-01-21] MEDS: Amlodipine 10 MG TAB PO SCH (09:19)
[2018-01-21] MEDS: Ferrous Sulfate 325 MG TAB PO SCH (09:19)
[2018-01-21] MEDS: guaiFENesin ER 600 MG TAB PO SCH (09:20)
[2018-01-21] MEDS: Simethicone Chewable 80 MG TAB PO SCH ×2 (09:20→15:19)
[2018-01-21] MEDS ORDERED: Magnesium Sulfate 2 GM in Sodium Chloride 0.9% 250 ML 250 ML IVPB SCH (09:45)
--- NOTE | 2018-01-21 11:48 | DIS ---
PRIMARY CARE PHYSICIAN: [facility] call admission. DATE OF ADMISSION: 01/10/2018 DATE OF DISCHARGE: 01/21/2018 DISCHARGE DISPOSITION: Swing bed in [place]. PRIMARY DISCHARGE DIAGNOSES: 1. Colonic diverticular abscess. 2. Diverticular disease of large intestine. 3. Splenic abscess. 4. Left lower lobe pneumonia with parapneumonic effusion. 5. Sepsis. 6. Hypokalemia. 7. Hypomagnesemia. 8. Hyponatremia. SECONDARY DISCHARGE DIAGNOSES: Morbid obesity with BMI of 43, hypertension, dyslipidemia, diabetes t ype 2, normocytic normochromic anemia. PRIMARY PROCEDURE/OPERATION: CT guided drainage of splenic abscess and PICC line procedure, thoracen tesis x2. RADIOLOGICAL INVESTIGATION: Chest x-ray showed left-sided lower lobe pneumonia with effusion. CT an kerry consistent with a left lower lobe pneumonia with effusion. CT of the abdomen and pelvis showed s plenic abscess. The patient had repeat chest x-rays while in the hospital for followup. CT chest s howed some loculated fluid in the left upper apex. Ultrasound of lower extremity negative for DVT. SIGNIFICANT LABS: WBC 9.0, hemoglobin 9.5, platelet 419. INR 1.1. Sodium 131, potassium 3.3, BUN 1 4, creatinine 1.04, calcium 8.2, magnesium 1.9. Urinalysis normal. Thoracentesis fluid was consiste nt with exudative fluid and culture negative. Blood culture negative. Culture from the aspirate is also negative. Pleural fluid culture negative. DISCHARGE MEDICATIONS: The patient will continue meropenem 1 gram IV q.8h. until 03/03/2018. Contin ue the following medications; amlodipine 10 mg p.o. daily, Lipitor 20 mg p.o. at bedtime, Dapaglifloz in 5 mg p.o. at bedtime, ferrous sulfate 325 mg p.o. daily, Lasix 40 mg p.o. daily, lisinopril 20 mg p.o. daily, metformin 2000 mg p.o. at bedtime, Onglyza 5 mg p.o. at bedtime. CONTRAINDICATIONS: None. CODE STATUS: FULL CODE. INPATIENT CONSULTANTS: Dr. Samuel was following while in hospital. Dr. Anaya was consulted for par apneumonic effusion who did thoracentesis x2. Dr. Jordan was consulted for splenic abscess. TEST RESULTS PENDING ON DISCHARGE: None. ALLERGIES: PENICILLIN. DISCHARGE PLAN: Post hospital, the patient will follow up with primary care physician, Dr. Anaya, Dr. Samuel and Dr. Jordan as instructed. HOSPITAL COURSE: The patient is a 67-year-old male who was admitted by Dr. Wasserman. Please see her H&P for further details. The patient was having upper abdominal pain on the left side. The patient was also having cough and shortness of breath. In the emergency room, workup showed left-sided pleur al effusion and left-sided lower lobe pneumonia. The patient also had CT angiography which showed no evidence of pulmonary embolism, but it showed left-sided parapneumonic effusion. CT of the abdomen and pelvis showed splenic abscess and origin suspected from diverticular disease. The patient was admitted to telemetry floor. He was treated with broad-spectrum antibiotic therapy w ith Levaquin and Flagyl. Dr. Jordan was thinking that patient does not need any surgical interventi on and it was very difficult site for aspiration as well, so patient was only treated with antibiotic therapy. Pulmonary group was consulted for pleural effusion and they did thoracentesis and pleural fluid was c onsistent with exudative pattern and it was complicated parapneumonic effusion, but culture was negat tobin. Dr. Lee saw this patient for diverticular disease and this patient will need outpatient colonoscop y after resolution of abscess. The patient had repeat thoracentesis for pleural effusion and subsequently he did not require any fur ther thoracentesis and he was improving from pneumonia as well as pleural effusion point of view with the surveillance chest x-ray. The patient does have mild loculated fluid in the left apical area th at was confirmed with CT chest, but the patient did not require any surgery. The patient's cultures remain negative and Dr. Samuel changed antibiotic therapy from Levaquin and Fla gyl to meropenem and vancomycin for persistent leukocytosis and with that therapy the patient's leuko cytosis was improving. We also did a CT guided aspiration of splenic abscess and that culture was also negative. Vancomycin was discontinued and meropenem was only continued. At this point, the patient will need long-term IV antibiotic therapy until 03/03/2018. That is why a PICC line was placed. The patient has no feasibility to do IV antibiotic therapy at home and that is why with help of case preparer and liner, we arranged a swing bed in [place]. This patient had bilateral lower extremity pitting edema from fluid resuscitation and he may have und erlying chronic venous insufficiency from morbid obesity and that is why we have to treat him with La six while in hospital and that is why his potassium and abnormal electrolytes were also replaced duri ng this hospital course. At this point, the patient is on room air. His hypoxic respiratory failure which he had on admission that has also resolved. The patient vitals are stable. We are resuming all his home medication. The patient is seen and examined at bedside today. Paper work for discharge done. Discharge medicat ion reconciliation done. Total time spent on discharge day more than 30 minutes. If discharge arrangement is done, then tonia costa is medically stable for discharge to swing bed later on today.
--- NOTE | 2018-01-21 12:49 | PRG ---
DATE OF SERVICE: 01/21/2018 SERVICE: Pulmonary Medicine INTERVAL HISTORY: The patient is doing fantastic from a respiratory standpoint. He is breathing comfortably on room air. He denies any chest pain , nausea, vomiting or shortness of breath. His potassium is moving in the right direction. He has been up walking around, has no specific complaints. PHYSICAL EXAMINATION: VITAL SIGNS: Afebrile, pulse 86, blood pressure 125/60, respirations 20, saturation 91% on room air. GENERAL: The patient is awake, alert, in no apparent distress. LUNGS: Decent air entry. There is no prolonged expiratory phase, wheezing, rhonchi, or crackles present. HEART: Normal rate, regular. ABDOMEN: Soft, nontender, nondistended. Bowel sounds are positive. MUSCULOSKELETAL: No cyanosis or clubbing. He continues to have 2+ pitting in the bilateral lower extremities. NEUROLOGIC: Grossly nonfocal. LABORATORY DATA: WBC 9.0, hemoglobin 9.5, platelets 419,000. Potassium 3.3, sodium 131 and improving. Basic metabolic profile is otherwise unremarkable. Bicarbonate 29, creatinine 1.06 and roughly stable. Magnesium 1.9. All culture results remain negative. ASSESSMENT: 1. Acute hypoxic respiratory failure, resolved. 2. Community-acquired pneumonia, status post full course of therapy. 3. Uncomplicated parapneumonic pleural effusion, status post thoracentesis x2. 4. Splenic abscesses, multiple. 5. Abdominal abscess status post IR drainage. PLAN: From my perspective, the patient is stable for transition out of the hospital. He will need a repeat chest x-ray with follow up with me in 4-6 weeks. At that time, we will screen him for sleep apnea and likely set him up for a sleep study. He will continue to need Lasix in the outpatient setting. Pulmonary Critical Care will continue to follow if he remains in house, but it is my understanding he is being discharged to his nursing home facility today. MARTINEZ
[2018-01-21 15:58] VITALS: BP 147/80; TEMP 97.9
== END 2018-01-21 15:45 | disposition swing bed (61) | DRG 871 ==
LOC: ERS 14:30 → 2NO 18:42 → T4-B 01-12 11:07
PROVIDERS: ADMIT Internal Medicine; ATTEND Internal Medicine
PROC: 02HV33Z Insertion of Infusion Device into Superior Vena Cava, Percutaneous Approach (ICD-10-PCS; 2018-01-10)
PROC: 0W9B3ZX Drainage of Left Pleural Cavity, Percutaneous Approach, Diagnostic (ICD-10-PCS; principal; 2018-01-12)
PROC: 02H633Z Insertion of Infusion Device into Right Atrium, Percutaneous Approach (ICD-10-PCS; 2018-01-12)
PROC: 0W9B30Z Drainage of Left Pleural Cavity with Drainage Device, Percutaneous Approach (ICD-10-PCS; 2018-01-13)
PROC: 079P3ZZ Drainage of Spleen, Percutaneous Approach (ICD-10-PCS; 2018-01-17)
DX: A41.9 Sepsis, unspecified organism (principal); J18.9 Pneumonia, unspecified organism; J96.01 Acute respiratory failure with hypoxia; J91.8 Pleural effusion in other conditions classified elsewhere; K57.20 Diverticulitis of large intestine with perforation and abscess without bleeding; E66.01 Morbid (severe) obesity due to excess calories; E87.1 Hypo-osmolality and hyponatremia; Z68.41 Body mass index [BMI] 40.0-44.9, adult; D73.3 Abscess of spleen; E83.42 Hypomagnesemia; R65.20 Severe sepsis without septic shock; E11.65 Type 2 diabetes mellitus with hyperglycemia; I10 Essential (primary) hypertension; E78.5 Hyperlipidemia, unspecified; E87.6 Hypokalemia; D64.9 Anemia, unspecified; Z88.0 Allergy status to penicillin; Z79.84 Long term (current) use of oral hypoglycemic drugs; Z79.899 Other long term (current) drug therapy
CPT/HCPCS: 36415; 36416; 36556; 36569; 49020; 71045; 71046; 71260; 71275; 74177; 77002; 80048; 80053; 80069; 80202; 81001; 82150; 82378; 82945; 83605; 83615; 83690; 83735; 83986; 84100; 84157; 84484; 85025; 85060; 85610; 85730; 86140; 87040; 87070; 87116; 87205; 87206; 87804; 88112; 88305; 89051; 93005; 93970; 94760; 96365; 96374; 96375; J2270; C1751; G8978-GP-CK; G8979-GP-CJ; G8987-GO-CI; G8988-GO-CI; G8989-GO-CI; J0692; J1644; J1650; J1940; J1956; J2001; J2185; J2405; J3370; J3475; J3480; J7050; S0028

== ENCOUNTER 2018-01-22 19:00 | Inpatient (IN) | payer MEDICARE ==
[2018-01-22] MEDS ORDERED: Morphine 4 MG/ML VIAL ONE (19:22)
[2018-01-22] MEDS ORDERED: Ondansetron HCl/PF 4 MG/2 ML Vial IVP PRN (20:38)
[2018-01-22] MEDS ORDERED: hydrALAZINE 20 MG/ML VIAL SLOW IVP PRN (20:38)
[2018-01-22] MEDS ORDERED: Dextrose 50% Abboject 50 ML SYRINGE SLOW IVP PRN (20:38)
[2018-01-22] MEDS ORDERED: Morphine 4 MG/ML VIAL SLOW IVP PRN (20:38)
[2018-01-22] MEDS ORDERED: Dextrose 5% in Water 1,000 ML IV PRN (20:38)
[2018-01-22] MEDS ORDERED: HumaLOG 300 UNITS/3 ML VIAL SC PRN (20:38)
[2018-01-22] MEDS ORDERED: Ketorolac Tromethamine 30 MG/ML VIAL IVP PRN (20:46)
[2018-01-22] MEDS ORDERED: Acetaminophen 1,000 MG in Premix Bag 1 BAG IVPB PRN (20:46)
[2018-01-22] MEDS ORDERED: Enoxaparin Sodium 40 MG/0.4 ML SYRINGE SC SCH (21:00)
[2018-01-22] MEDS ORDERED: Famotidine/PF 20 mg/2ml Vial SLOW IVP SCH (21:00)
[2018-01-22] MEDS: Clindamycin/D5W 900 MG in Premix Bag 1 BAG IVPB SCH (22:56)
[2018-01-22] MEDS: Pantoprazole 40 MG VIAL IVP SCH (22:57)
[2018-01-22] MEDS: Morphine 4 MG/ML VIAL SLOW IVP PRN (23:06)
[2018-01-22] MEDS: Sodium Chloride 0.9% 1,000 ML IV SCH (23:11)
[2018-01-23] MEDS: Meropenem 2 GM in Sodium Chloride 0.9% 100 ML IVPB SCH ×2 (00:01→06:39)
[2018-01-23] MEDS: Morphine 4 MG/ML VIAL SLOW IVP PRN (01:34)
--- NOTE | 2018-01-23 02:07 | HP ---
HISTORY OF PRESENT ILLNESS: Mr. Alexis Dickey is a 67-year-old male patient discharged from [facility] yesterday to [facility] swing bed for meropenem IV through a PICC line left. He pagan s been seen by Hospitalist Service, Dr. Damaso Jordan, Dr. Hero Lee and Dr. Rishi Samuel. Patie nt at [place] today underwent a CAT scan of the abdomen and pelvis read by Dr. Brad Grant revealing a tremendous amount of stool in the right colon transition point with obstruction of the splenic flexu re where he had a perisplenic abscesses intraparenchymal abscesses. He has new findings of inflammat ion about the sigmoid colon. He had a colonoscopy in 2012, Dr. Vj Macias noting scant diverticul a, otherwise unremarkable. Dr. Lee saw him, did not deem any further Gastroenterology evaluation. At that time, he was in the hospital recently. More recently, [facility]. I reviewed the CAT scan with our local radiologist and who concur with Dr. Grant's interpretation. His cultures obtained from CT guided drainage procedure performed by Radiology for 05/01/[address] Samuel thought that he might have had hematogenous spread for his perisplenic findings. Patient's laboratories a day, which are unremarkable on 01/22/2018 at 0500 hours this morning, glucos e 138. Sodium 131, potassium 3.5, BUN 15, hemoglobin A1c 6.1 on 09/27/2015. Magnesium, phosphorus n ormal. Magnesium normal this morning, his white count is 11, hemoglobin 9.1, platelet count 391. ALLERGIES: PENICILLIN. TOBACCO: None. ALCOHOL: None. MEDICATIONS: Tylenol p.r.n., Pepcid 20 mg twice a day, potassium chloride, K-Dur 20 mEq a.m., Onglyz a 5 mg at bedtime, Farxiga 5 mg at bedtime, atorvastatin 20 mg at bedtime, ferrous sulfate 325 mg a d ay, lisinopril 20 mg a day, metformin 2000 mg at bedtime, furosemide 40 mg a day, amlodipine 10 mg a day, meropenem 1 g q.8 hours. PAST SURGICAL HISTORY: Colonoscopy, upper endoscopy 2012, Dr. Vj Macias obtained for anemia. No significant findings noted. Skin cancer removed. Cataract surgery, tonsillectomy. PSYCHIATRIC HISTORY: Negative. PAST MEDICAL HISTORY: Diabetes mellitus, metabolic syndrome, morbid obesity, dyslipidemia, hypertens ion. He is felt possibly have sleep apnea, although has never had a sleep study. No history of any cardiac problems, never has been seen by associate manager, never has had a stress test never has had card iac symptoms. SOCIAL HISTORY: The patient is . 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 PHYSICAL EXAMINATION: VITAL SIGNS: 136/88, respiration rate 20, 98.2 degrees, 126 kilograms. HEENT: Unremarkable. LUNGS: Clear to auscultation. CARDIAC: Regular rate and rhythm without murmur or gallop. ABDOMEN: Soft, distended protrude upper abdomen, tender right abdomen without significant guarding. He has tenderness with voluntary guarding, no peritoneal signs. Mild redness in his left groin area . Suprapubic area. No cellulitis, no crepitance. Walker catheter in place. EXTREMITIES: Unremarkable. LABORATORY DATA: Noted above. ASSESSMENT AND PLAN: 1. Colon obstruction by CAT scan with this development, would recommend laparotomy, colon resection. We will plan this tomorrow. We will keep him n.p.o. tonight, give him intravenous antibiotics. He may be necessary to remove his spleen tomorrow. He will certainly need a colostomy. He consents to this. His mother did have a colostomy due to colon cancer. I think it is unlikely that this is can cer. Risk and benefits explained. He consents. 2. Morbid obesity. 3. PENICILLIN allergy. 4. Diabetes mellitus. 5. Hypertension. 6. Symptoms sleep apnea without prior sleep study. 7. Morbid obesity.
[2018-01-23 05:00] LABS: Band 29 % (5-11); Hemoglobin 11.5 g/dL (14.0-18.0); Lymphocytes 6 % (21-51); MDiff Complete? YES; Mean Corpuscular HGB CONC 33.6 g/dL (32.0-36.0); Mean Corpuscular Hemoglobin 28.2 pg (27.0-31.0); Mean Corpuscular Volume 83.9 fl (80.0-94.0); Monocytes 2 % (0-10); Neutrophil 63 % (42-75); PLT Morphology Comment Appears Increased; Platelet Count 638 thou/uL (130-400); RBC Distribution Width 14.5 % (11.5-14.5); Red Blood Cell (RBC) Count 4.09 mill/uL (4.70-6.10); Toxic Granulation SLIGHT; White Blood Cell (WBC) Count 7.2 thou/uL (4.8-10.8)
[2018-01-23] MEDS: Clindamycin/D5W 900 MG in Premix Bag 1 BAG IVPB SCH (05:38)
[2018-01-23] MEDS: Sodium Chloride 0.9% 1,000 ML IV SCH (05:38)
[2018-01-23 06:00] LABS: Anion Gap 16 mmol/L (10-20); BUN (Urea Nitrogen) 20 mg/dL (8.4-25.7); Calc. Creatinine Clearance 72 mL/min (70-130); Calcium 8.1 mg/dL (7.8-10.44); Carbon Dioxide 24 mmol/L (23-31); Chloride 90 mmol/L (98-107); Estimated GFR-MDRD 37; Glucose 190 mg/dL (80-115); Potassium 4.5 mmol/L (3.5-5.1); Sodium 125 mmol/L (136-145)
[2018-01-23] MEDS ORDERED: EPINEPHrine 1 MG/10 ML Abboject SYRINGE ONE ×3 (07:11→09:51)
--- NOTE | 2018-01-23 07:15 | PDOC.EVN ---
Event Note - Event Note Event Note: Code Note, see formal documentation that follows. 67 y/o M admitted by Dr. Shea for LBO with splenic abscesses, recently discharged from [facility]. Code blue called and upon arrival being bagged and compressions in progress. 2 amps epi and 1 of bicarb given. Intubated using glidescope with 7.5 ETT. Bilious material suctioned prior to tube being placed. OG placed afterward. ROSC obtained. Transferred to ICU. Discussed with Dr. Shea who arrived just prior to ROSC. ~10 minutes of compressions.
[2018-01-23] MEDS ORDERED: EPINEPHrine 1 MG/ML AMP ONE (07:24)
[2018-01-23] MEDS ORDERED: Ventilator Sedation Protocol 1 EACH FS SCH (07:30)
[2018-01-23] MEDS ORDERED: Norepinephrine 8 MG/0.9% NS 250 ML ONE ×2 (07:35→11:16)
[2018-01-23] MEDS ORDERED: Propofol 1,000 MG/100 ML VIAL IV PRN (07:39)
[2018-01-23] MEDS ORDERED: fentaNYL Citrate/PF 2,000 MCG in Sodium Chloride 0.9% 60 ML IV SCH (07:39)
[2018-01-23] MEDS ORDERED: Fentanyl BOLUS 250 ML IVPB PRN (07:39)
[2018-01-23] MEDS ORDERED: Propofol BOLUS 1,000 MG/100 ML VIAL IV PRN (07:39)
[2018-01-23] MEDS ORDERED: Lorazepam 2 MG/ML VIAL SLOW IVP PRN (07:39)
[2018-01-23] MEDS ORDERED: DISCONTINUE PREVIOUS NARCOTIC PAIN MEDICATIONS AND BENZODIAZEPINES FS SCH (07:39)
[2018-01-23] MEDS ORDERED: Morphine 4 MG/ML VIAL SLOW IVP PRN (07:39)
[2018-01-23 07:53] LABS: Magnesium 2.4 mg/dL (1.6-2.6)
[2018-01-23] MEDS: EPINEPHrine 4 MG, Admixture Fee 1 EACH in Dextrose 5% in Water 250 ML IVP SCH ×2 (07:55→15:57)
[2018-01-23 08:01] LABS: CKMB 2.2 ng/mL (0-6.6); Troponin I Less than 0.010 ng/mL (< 0.028)
--- NOTE | 2018-01-23 08:03 | RAD ---
CHEST 1 VIEW: Date: 01/23/18 HISTORY: Status post coding. Intubated patient. NG tube placement. COMPARISON: 01/16/18. FINDINGS: There is an endotracheal tube just beyond the level of the clavicles. Nasogastric tube is in the left upper quadrant. There is a left-sided PICC line with distal tip projecting over the right atrium. No rmal cardiac silhouette. Pulmonary vessels are normal. Lung volumes are diminished. Patchy interstiti al opacities. No pneumothorax on this supine projection. No osseous abnormalities. IMPRESSION: Patchy interstitial opacities, predominantly left hemithorax. Lines and tubes as above. POS: OFF
[2018-01-23] MEDS ORDERED: Sodium Chloride 0.9% 1,000 ML IV SCH ×3 (08:10)
[2018-01-23 08:15] LABS: Actual Bicarbonate (HCO3a) 8.6 mEq/L (22-26); Base Excess (BEa) -21.8 mEq/L (0 (+/-) 2.5); CO2 Tension 37.5 mmHg (35.0-45.0); Hematocrit-ABG 34.8 % (42.0-52.0); Hemoglobin (Hb) 9.1 g/dL (14.0-18.0); O2 Tension (PaO2) 114.7 mmHg (80.0-100.0); pH, Arterial 6.98 (7.35-7.45)
[2018-01-23 08:16] LABS: Puncture Site ALINE
[2018-01-23 08:16] LABS: Phosphorus 10.5 mg/dL (2.3-4.7)
[2018-01-23 08:17] LABS: ALV-art Gradient 551.425 (0-20)
--- NOTE | 2018-01-23 08:26 | OP ---
DATE OF PROCEDURE: 01/23/2018 PREOPERATIVE DIAGNOSES: Sepsis, cold, respiratory, cardiac arrest status post resuscitation, severel y acidotic post-sepsis, colonic obstruction. POSTOPERATIVE DIAGNOSES: Sepsis, cold, respiratory, cardiac arrest status post resuscitation, severe ly acidotic post-sepsis, colonic obstruction. PROCEDURES: Right femoral artery ART line. Right subclavian vein triple lumen catheter. SURGEON: Dr. Brien Shea ANESTHESIA: None. PROCEDURE: At the patient's bedside, his right groin was clipped of hair, as was his right periclavi cular area in both prepared with ChloraPrep, draped in routine fashion in the right groin. The femor al artery was cannulated with trocar catheter. J-wire threaded. Seldinger technique used to place a n arterial line, secured with 2 interrupted sutures of 3-0 silk. Sterile dressing applied and connec dee to the ART line device after blood gases submitted. Right subclavian area prepared with ChloraPrep, draped in routine fashion. Trocar catheter cannulate d the right subclavian vein and J-wire threaded. Seldinger technique used to place a triple lumen ca theter, removing the J-wire, securing the catheter with 2 interrupted sutures of 3-0 silk. Sterile d ressing applied. Each port aspirated blood and flushed with saline solution. Patient tolerated the procedure well.
[2018-01-23 08:31] LABS: Actual Bicarbonate (HCO3a) 10.4 mEq/L (22-26); Base Excess (BEa) -18.8 mEq/L (0 (+/-) 2.5); CO2 Tension 38.1 mmHg (35.0-45.0); Hematocrit-ABG 32.3 % (42.0-52.0); O2 Tension (PaO2) 110.9 mmHg (80.0-100.0); pH, Arterial 7.05 (7.35-7.45)
[2018-01-23 08:32] LABS: ALV-art Gradient 554.475 (0-20); Hemoglobin (Hb) 8.6 g/dL (14.0-18.0); Puncture Site ALINE
--- NOTE | 2018-01-23 08:53 | RAD ---
RADIOGRAPH CHEST 1 VIEW: Date: 01-23-18 Time: 7:27 a.m. HISTORY: 67-year-old male in respiratory failure. COMPARISON: 01-23-18 at 6:31 a.m. FINDINGS: There is a new right subclavian central venous catheter with distal tip overlying the lower portion o f the right atrium. The left sided PICC remains. Endotracheal tube and NG tube remain. Haziness of th e left upper, mid, and lower lung zones, with relative sparing of the apex. Nonspecific increased att enuation of the right medial base. The rest of the right lung is clear. IMPRESSION: 1. Right subclavian central venous catheter placement. This is a supine image, which could be insensi tive for pneumothorax detection. 2. No other interval change. GEETA POS: VERNON
[2018-01-23] MEDS ORDERED: Vancomycin HCl 1.75 GM, Admixture Fee 1 EACH in Sodium Chloride 0.9% 500 ML IVPB SCH (09:00)
[2018-01-23] MEDS ORDERED: Vancomycin HCl 1.25 GM in Sodium Chloride 0.9% 250 ML 250 ML IVPB SCH (09:00)
[2018-01-23] MEDS: Sodium Bicarb 50 MEQ/50 ML Abboject 8.4% SYRINGE ONE ×2 (09:20→10:41)
[2018-01-23 09:40] LABS: Bilirubin Moderate (Negative); Blood, Urine Large (Negative); Clarity TURBID (Clear); Glucose, Urine (Dipstick) Negative (Negative); Leukocyte Small (Negative); Nitrite Negative (Negative); Protein, Urine (Dipstick) 100 mg/dL (Neg-Trace); Urobilinogen 0.2 mg/dL (0.2-1.0)
[2018-01-23 09:43] LABS: Squamous Epithelial 0-3 HPF (0-3)
[2018-01-23] MEDS ORDERED: Sodium Bicarb 50 MEQ/50 ML Abboject 8.4% SYRINGE IVP SCH (09:45)
[2018-01-23] MEDS ORDERED: Atropine Sulfate 1 mg/10 ml Syringe ONE (09:51)
[2018-01-23] MEDS ORDERED: Calcium Chloride 1 GM/10 ML Abboject SYRINGE ONE ×3 (09:51→15:14)
[2018-01-23] MEDS ORDERED: Sodium Bicarb 50 MEQ/50 ML Abboject 8.4% SYRINGE ONE ×6 (09:51→11:30)
[2018-01-23 09:55] LABS: Pathc Cast-AUWi Flag 4.62 (0-2.49); Yeast-AUWi Flag 419.4 (0-25.0)
[2018-01-23 10:00] LABS: RBC/HPF GREATER THAN 50-TNTC HPF (0-3); Specific Gravity, Urine 1.052 (1.002-1.036)
[2018-01-23 10:01] LABS: Bacteria/HPF Rare-Few HPF (None Seen); Hyaline Casts/LPF 0-3 HYALINE CAST LPF (0-3 Hyaline); Manual Microscopic Reviewed? No Path Casts Seen; Renal Epithelial 0-3 HPF (0-3); Transitional Epithelial 0-3 HPF (0-3); Yeast-All Forms None Seen HPF (None Seen)
[2018-01-23 10:42] LABS: Actual Bicarbonate (HCO3a) 11.4 mEq/L (22-26); Base Excess (BEa) -16.9 mEq/L (0 (+/-) 2.5); CO2 Tension 36.3 mmHg (35.0-45.0); Hematocrit-ABG 33.8 % (42.0-52.0); Hemoglobin (Hb) 9.1 g/dL (14.0-18.0); O2 Tension (PaO2) 81.4 mmHg (80.0-100.0); pH, Arterial 7.12 (7.35-7.45)
[2018-01-23 10:43] LABS: Calcium, Ionized 0.9 mmol/L (1.12-1.30)
[2018-01-23 10:44] LABS: ALV-art Gradient 586.225 (0-20); Puncture Site ALINE
--- NOTE | 2018-01-23 10:49 | PRG ---
DATE OF SERVICE: 01/23/2018 SUBJECTIVE: Mr. Alexis Dickey is on the surgical floor. He had been doing well overnight, respirator y rate 22, temperature 98.1 degrees, pulse 96. He had nasal cannula on. His blood pressure had been 97/66 earlier this morning. He took a preop shower this morning. Nurses noted him to be slightly d yspneic. He had not had any nausea or vomiting. Morning labs have been drawn at 0358, sodium 125, p otassium 4.5, chloride 90, carbon dioxide 24, BUN 20, creatinine 1.84 (slightly elevated from admissi on), GFR 37, calcium 8.1, this morning hemoglobin was 11.5, white count 7.2, platelet count 638,000. Of note is that his admission hemoglobin was 9.1. Patient had not complaining of any increased abdo heike pain and not had any nausea or vomiting. Nurses returned to his room shortly after shower foun d him asystolic. CPR initiated. He was given fluids, bicarbonate and epinephrine. CPR continued. Initial intubation attempt was unsuccessful. There was bile noted in the oropharynx. Using the Glid eScope, second attempt was successful. He was intubated. Good breath sounds auscultated. At this p oint, CPR is held. He is noted to have good femoral pulses. OG tube was placed and confirmed with a uscultation of the abdomen. Patient's blood pressure was 90-100 systolic. He was transferred to the intensive care unit. Blood pressure was low with 90-50 and saline fluid bolus administered, epineph rine drip initiated. Chest x-ray revealed good endotracheal tube placement. He had changes in both lung [place], some chronic from chronic abdominal distention, colon distention and has chronic left ef fusion which had been aspirated past admission. A nasogastric tube was in place. Endotracheal tube was in proper position. He has a double lumen PICC line in the left arm. The patient's abdomen is s oft and although distended and protuberant and tympanitic. His abdomen is soft, without guarding. OBJECTIVE: LUNGS: Clear to auscultation. CARDIAC: Regular rate and rhythm. His blood pressure is low. ABDOMEN: Soft, distended, protuberant. EXTREMITIES: Baseline. Blood gas is pending. Respiratory rate initially 20 on the vent increased to 30. I have discussed w arabella Hector who will see him today. We will continue the ventilator. Check troponins. He was in need of colon resection at later day if he stabilizes, we will check troponins. There is no history of cardiac history. ASSESSMENT AND PLAN: Acute respiratory failure, cardiac arrest, CPR. He is hemoconcentrated and beryl l be given fluid boluses and an increase IV fluid rate, most likely sepsis. He has been on meropenem and Cleocin. We will add vancomycin. His Accu-Cheks have been 200 on a moderate sliding scale. We will follow this, may have to change him to an aggressive sliding scale. Critical care time spent with this patient this morning was 45 minutes.
[2018-01-23] MEDS: Sodium Bicarbonate 150 MEQ in Dextrose 5% in Water 850 ML IV SCH ×2 (10:53→16:10)
[2018-01-23] MEDS ORDERED: Sodium Bicarbonate 2.5 MEQ/5 ML VIAL ONE (11:07)
[2018-01-23] MEDS ORDERED: Albumin 5% 500 ML ONE (11:13)
[2018-01-23 11:46] LABS: Troponin I 0.014 ng/mL (< 0.028)
[2018-01-23] MEDS ORDERED: Midazolam HCl 2 mg/2 ml Vial ONE (11:54)
[2018-01-23] MEDS: Albuterol Sulfate 2.5 mg/3 ml Neb NEB SCH ×5 (12:20→23:40)
[2018-01-23 13:42] LABS: Actual Bicarbonate (HCO3a) 14.2 mEq/L (22-26); CO2 Tension 35.9 mmHg (35.0-45.0); O2 Tension (PaO2) 164.2 mmHg (80.0-100.0); pH, Arterial 7.22 (7.35-7.45)
[2018-01-23 13:43] LABS: Analyzer IN Cardio OR; Base Excess (BEa) -12.5 mEq/L (0 (+/-) 2.5); Calcium, Ionized 0.8 mmol/L (1.12-1.30); Hematocrit-ABG 31.1 % (42.0-52.0); Hemoglobin (Hb) 8.9 g/dL (14.0-18.0); Puncture Site ALINE
[2018-01-23 14:18] LABS: Actual Bicarbonate (HCO3a) 13.2 mEq/L (22-26); Base Excess (BEa) -13.5 mEq/L (0 (+/-) 2.5); CO2 Tension 33.8 mmHg (35.0-45.0); Hematocrit-ABG 27.6 % (42.0-52.0); Hemoglobin (Hb) 7.7 g/dL (14.0-18.0); O2 Tension (PaO2) 179.1 mmHg (80.0-100.0); pH, Arterial 7.21 (7.35-7.45)
[2018-01-23 14:19] LABS: Puncture Site ALINE
[2018-01-23 14:45] LABS: INR-International Normal Ratio 2.2; Prothrombin Time 25.6 SEC (12.0-14.7)
[2018-01-23] MEDS ORDERED: Potassium Chloride 40 MEQ in Premix Bag 1 BAG IVPB SCH (14:45)
[2018-01-23] MEDS ORDERED: Gentamicin 80 MG/2 ML VIAL IVPB SCH ×2 (14:45→15:00)
[2018-01-23 14:47] LABS: Anion Gap 39 mmol/L (10-20); BUN (Urea Nitrogen) 22 mg/dL (8.4-25.7); Calc. Creatinine Clearance 55 mL/min (70-130); Calcium 7.9 mg/dL (7.8-10.44); Carbon Dioxide 11 mmol/L (23-31); Chloride 93 mmol/L (98-107); Estimated GFR-MDRD 27; Glucose 260 mg/dL (80-115); Potassium 3.6 mmol/L (3.5-5.1); Sodium 139 mmol/L (136-145)
[2018-01-23 14:56] LABS: Hemoglobin 8.1 g/dL (14.0-18.0); Mean Corpuscular HGB CONC 31.1 g/dL (32.0-36.0); Mean Corpuscular Hemoglobin 27.8 pg (27.0-31.0); Mean Corpuscular Volume 89.2 fl (80.0-94.0); Mean Platelet Volume 7.2 fL (7.4-10.4); Platelet Count 374 thou/uL (130-400); RBC Distribution Width 14.9 % (11.5-14.5); Red Blood Cell (RBC) Count 2.92 mill/uL (4.70-6.10)
[2018-01-23 14:57] LABS: Anisocytosis SLIGHT = 6-15 cells (100X) (0-5/hpf); Band 22 % (5-11); Lymphocytes 19 % (21-51); MDiff Complete? YES; Metamyelocyte 2 % (0-0); Monocytes 1 % (0-10); Neutrophil 56 % (42-75); Ovalocytes SLIGHT = 2-5 cells (100X) (0-1/hpf); PLT Morphology Comment Appears Adequate; Toxic Granulation SLIGHT
--- NOTE | 2018-01-23 15:18 | OP ---
DATE OF OPERATION: 01/23/2018 PREOPERATIVE DIAGNOSES: Sepsis, Levophed and epinephrine drip, severe acidosis, colon obstruction, p erisplenic inflammatory changes, perisplenic abscess adherent segment of the gastric fundus to the pe risplenic area, firm tumor mass appearing area in the splenic hilum. PROCEDURES PERFORMED: Exploratory laparotomy, abdominal washout, right colectomy, transverse colecto my, splenic flexure resection, extended Maria Luisa's pouch, mid descending colon marked with a 2-0 Prol haylie suture, splenectomy, partial fundic resection (gastrectomy) approximately 4 cm with staple closur e, distal pancreatectomy with Endo-JERI green load and oversewn with 2-0 Prolene running locking sutur es, omentectomy, abdominal washout. Note, ileum left blindly in the abdominal cavity for future ileo stomy, ABThera placement with plans to return to the operating room for abdominal washout in 48-72 ho urs. ANESTHESIA: General anesthesia. SURGEON: Brien Shea M.D. ESTIMATED BLOOD LOSS: 200 mL. Two units of blood administered, 2 units of fresh frozen plasma admin istered. DRAINS: None. FINDINGS: The patient had a hard tumor mass appearing here in the splenic hilum. The pancreatic noe l felt abnormal. Splenic flexure was adherent and obstructed near the splenic hilum. A portion of t he gastric fundus superiorly adherent to the splenic hilum, perisplenic abscess noted left subdiaphra gmatic with purulent yellow material evacuated. On entering the abdominal cavity, patient had fecule nt-stained ascites fluid and an ischemic gangrenous right colon and ischemic proximal transverse colo n with obstruction of the splenic flexure, the splenic hilum from the inflammatory mass, possible yaw or mass. PROCEDURE IN DETAIL: The patient was taken to the operating room where under general anesthesia in s upine position and guarded condition on pressors, abdomen was clipped of hair, prepared with ChloraPr ep, draped in routine fashion. Midline incision was made from the upper abdomen below the umbilicus, carried down through skin and subcutaneous tissue, midline fascia, entering abdominal cavity sharply . There was feculent bile stained fluid that was evacuated. Right colon, cecum was gangrenous and i schemic, proximal transverse colon ischemic, distal transverse colon was slightly dilated, but much s maller than the right colon. Right was markedly distended and displaced into the left lower quadrant . Right colon was mobilized. Gastrocolic ligament taken down from the hepatic flexure and proximal transverse colon, right colon mobilized. There was some leakage from the cecum, controlled with towe ls. Duodenum identified and kept free of harm as the right colon, mesentery divided with the LigaSur e and major vascular structures. Ileal colic artery divided between clamps and ligated with 2-0 silk ties. Dissection carried up to a more healthy portion of the transverse colon, mid, and stapler was fired. The distal ileum was cleared and fired with a stapler JERI blue loads. The colon was removed from the field. Abdominal cavity irrigated. Irrigant evacuated. Small bowel was healthy. At this point, there was a firm tumor process in the splenic hilum and inflammatory process in the inferior portion of the spleen. The gastrosplenic ligament was taken down keeping the stomach free of harm, d ividing the gastrosplenic ligament with the LigaSure up to the upper fundus. There was a segment of the fundus adherent to the splenic inflammatory possible tumor mass. This was divided with the JERI b lue load stapler, keeping the NG tube away from the closure. Approximately 4 cm2 area stomach resect ed en bloc. As the splenic flexure was mobilized, it was tightly adherent and there were stool leaka ges from this area. As the spleen was mobilized from the lateral abdominal wall, left upper quadrant , there was yellow purulent material that was evacuated. There are inflammatory changes subdiaphragm atic. This was taken down bluntly. Further division of the gastrosplenic ligament performed to free the spleen and splenic apex. The splenic hilum revealed a firm mass in the area of the pancreatic t ail. This area and a more normal filling pancreatic tail was divided with a JERI green load Endo stap ler. Once this was accomplished, the pancreatic staple line was closed further with continuous to an d fro locking sutures of 2-0 Prolene. This area was irrigated. At this point, the spleen was mobili zed and removed along with the adherent gastric fundus and probably a portion of the colon and spleni c flexure area. This was submitted to pathology. The remaining portion of the transverse colon, spl enic flexure, and mesentery had been serially divided between clamps and LigaSure, mobilizing it, res ecting it. There was a firm inflammatory possible tumor mass near the apex of the left kidney, possi cristin representing the adrenal gland. This was divided with the cautery, excised, submitted as a separ ate specimen. This may have been just inflammatory reaction. We will await pathology evaluation. B leeding was controlled with a recwhg-lh-walfy suture of 2-0 silk. This left upper quadrant was irrig ated thoroughly, irrigant evacuated. Hemostasis noted. No cavity irrigated thoroughly. The ileum w as left laterally for an ileostomy at a later date. NG tube was palpated in good position. Liver ap peared to be normal. Gallbladder appeared to be normal. As sponge and needle counts were correct, A BThera was applied. The patient transferred to the intensive care unit in critical condition.
[2018-01-23] MEDS: Norepinephrine 8 MG/0.9% NS 250 ML IVPB SCH ×2 (15:56→20:11)
[2018-01-23] MEDS: MEROPENEM 1 GM/50 ML 1 GM in Premix Bag 1 BAG IVPB SCH (17:23)
[2018-01-23 17:58] LABS: Actual Bicarbonate (HCO3a) 12.7 mEq/L (22-26); O2 Tension (PaO2) 68.2 mmHg (80.0-100.0); pH, Arterial 7.32 (7.35-7.45)
[2018-01-23 17:59] LABS: Calcium, Ionized 0.9 mmol/L (1.12-1.30); Hematocrit-ABG 30.9 % (42.0-52.0); Hemoglobin (Hb) 8.8 g/dL (14.0-18.0); Puncture Site ALINE
[2018-01-23] MEDS: Pantoprazole 40 MG VIAL IVP SCH (21:18)
[2018-01-23] MEDS ORDERED: Meropenem 1 GM in Sodium Chloride 0.9% 100 ML IVPB SCH (22:00)
[2018-01-23] MEDS ORDERED: MEROPENEM 1 GM/50 ML 1 GM in Premix Bag 1 BAG IVPB SCH (22:00)
[2018-01-24] MEDS: Norepinephrine 8 MG/0.9% NS 250 ML IVPB SCH ×4 (00:12→18:16)
[2018-01-24] MEDS: Sodium Bicarbonate 150 MEQ in Dextrose 5% in Water 850 ML IV SCH ×2 (00:13→07:48)
--- NOTE | 2018-01-24 00:36 | CON ---
DATE OF CONSULTATION: 01/23/2018 HISTORY OF PRESENT ILLNESS: Mr. Dickey is a gentleman that was consulted about after a cardiorespira tory arrest this morning. He was intermittently examined throughout the day. Total critical care ti me with the patient was 95 minutes throughout the day. To refresh, he presented last night with arelis loza transferred from [place] with what appeared to be a colon obstruction at the splenic flexure. He has recently had a splenic flexure abscess. He was seen by General Surgery. It was felt that he did not have an acute abdomen and he was tentati vely placed on schedule this morning. Apparently, he was not complaining of severe abdominal pain when he presented. Recently, he was discharged from this hospital. He had abscess drainage on 01/17/2018. Son tells me 150 mL of pus was obtained through a 19-gauge catheter under CT guidance. Bacterial cultures from 01/17/2018, showed no growth. This morning, after his code, he was noted to have severe abdominal distention. He is unresponsive. He was actually found asystolic, I was told he was last seen 30 minutes earlier in no distress. He had one set of vital signs at 10:54 last night. We had a respiratory rate of 30, but respiratory rates after that were normal and there was no resting tachycardia. At 7:26, 50/29 recorded vital signs. I suspect that after code 04:35, he is 95/64; and 04:27, 97/66; heart rate was 96 then. PAST MEDICAL HISTORY: 1. Remarkable for pneumonia with pleural effusion. He underwent a thoracentesis on 01/13/[address] Anaya. Pleural fluid cultures were negative. 2. History of hypertension. 3. History of liver disorder. 4. History of diabetes. 5. History of basal cell carcinoma resected. 6. History of cataract surgery. 7. History of tonsillectomy. 8. History of a 3-week illness leading up to his last admission 01/11/2018 showing a pneumonia with parapneumonic effusion and multiple densities in the spleen consistent with abscesses. FAMILY HISTORY: Negative for lung disease in early age. Positive for vascular disease. SOCIAL HISTORY: Nonsmoker, nondrinker, does not use drugs. ALLERGIES: Reports allergy to PENICILLIN. MEDICATIONS: Prior to admission, he is on amlodipine, atorvastatin, lisinopril, metformin, Onglyza a nd [facility]. REVIEW OF SYSTEMS: Not obtainable, his exam after his arrest, he was on Levophed. He is receiving volume resuscitation. His pressure was in the 90s. Resting tachycardia. PHYSICAL EXAMINATION GENERAL: He was unresponsive. He has myoclonic jerking. HEENT: His pupils were sluggish. His sclerae are anicteric. NECK: Supple. LUNGS: Clear. HEART: Regular rhythm. ABDOMEN: Distended massively. EXTREMITIES: Without asymmetry. LABORATORY DATA: Initial blood gas showed a pH of 6.98, at 8:10 7.05, after 4 amps of bicarbonate, 7 .12. At that point in time, I have discussed the case with Dr. Shea and I have discussed the case multip le times this morning with the son who was at the bedside and the rest of the family. I felt that he had a catastrophic abdominal event that was evolving most likely bowel and Dr. Shea not felt that it would be appropriate to offer an operative procedure. If the family wanted this, then he con sented to this. I felt strongly that he would not survive the day without an operative procedure. He subsequently gone to the operating room and had resection of his spleen mass in his left upper preston drant and the majority of his colon per my discussion with Dr. Shea. He is scheduled tentatively f or abdominal washout again on Friday, did have a perforation small. Blood gas this evening 7.32, CO2 of 25, pO2 of 68. He is on a rate of 30, FiO2 of 70%, tidal volume of 470, PEEP of 7. This afternoon after surgery, sodium 139, potassium 3.6, chloride 93, bicarbonate 11, BUN 22, creatin ine 2.41. Unfortunately, he remains anuric. Vasopressin has been started. He is weaning off his pr essors. He will continue with bicarbonate drip at 200 mL an hour. We will continue with broad antimicrobial therapy. The big question now that has to be answered is whether or not he will recover neurologically. I met with family multiple times today, I examined him multiple times today, appears to be slowly improvin g. We will repeat a blood gas in the morning. Critical care time 95 minutes, exclusive of the time spent consulting with family and explaining ever ything as well as coordinating care on the unit.
[2018-01-24] MEDS: HumaLOG 300 UNITS/3 ML VIAL SC PRN ×3 (00:43→13:44)
[2018-01-24 01:09] LABS: Anion Gap 28 mmol/L (10-20); BUN (Urea Nitrogen) 24 mg/dL (8.4-25.7); Calc. Creatinine Clearance 42 mL/min (70-130); Calcium 7.1 mg/dL (7.8-10.44); Carbon Dioxide 24 mmol/L (23-31); Chloride 87 mmol/L (98-107); Estimated GFR-MDRD 20; Glucose 359 mg/dL (80-115); Potassium 3.7 mmol/L (3.5-5.1); Sodium 135 mmol/L (136-145)
[2018-01-24 01:26] LABS: Band 36 % (5-11); Hemoglobin 9.6 g/dL (14.0-18.0); Lymphocytes 8 % (21-51); MDiff Complete? YES; Mean Corpuscular HGB CONC 32.9 g/dL (32.0-36.0); Mean Corpuscular Hemoglobin 28.3 pg (27.0-31.0); Mean Corpuscular Volume 86.1 fl (80.0-94.0); Monocytes 2 % (0-10); Neutrophil 54 % (42-75); Platelet Count 392 thou/uL (130-400); RBC Distribution Width 14.7 % (11.5-14.5); White Blood Cell (WBC) Count 16.6 thou/uL (4.8-10.8)
[2018-01-24] MEDS: MEROPENEM 1 GM/50 ML 1 GM in Premix Bag 1 BAG IVPB SCH ×3 (02:00→18:05)
[2018-01-24] MEDS: Albuterol Sulfate 2.5 mg/3 ml Neb NEB SCH ×6 (02:59→22:32)
[2018-01-24] MEDS ORDERED: Acetaminophen 1,000 MG in Premix Bag 1 BAG IVPB PRN (04:43)
[2018-01-24 05:26] LABS: INR-International Normal Ratio 1.8; Prothrombin Time 21.2 SEC (12.0-14.7)
[2018-01-24 05:50] LABS: Troponin I 0.057 ng/mL (< 0.028)
[2018-01-24 05:52] LABS: Anion Gap 24 mmol/L (10-20); BUN (Urea Nitrogen) 25 mg/dL (8.4-25.7); Calc. Creatinine Clearance 38 mL/min (70-130); Carbon Dioxide 29 mmol/L (23-31); Chloride 87 mmol/L (98-107); Estimated GFR-MDRD 18; Glucose 266 mg/dL (80-115); Magnesium 1.3 mg/dL (1.6-2.6); Phosphorus 4.5 mg/dL (2.3-4.7); Potassium 3.7 mmol/L (3.5-5.1); Sodium 136 mmol/L (136-145)
[2018-01-24 05:53] LABS: CKMB 18.3 ng/mL (0-6.6)
[2018-01-24 06:01] LABS: Band 32 % (5-11); Hemoglobin 9.5 g/dL (14.0-18.0); Lymphocytes 10 % (21-51); MDiff Complete? YES; Mean Corpuscular HGB CONC 33.2 g/dL (32.0-36.0); Mean Corpuscular Hemoglobin 28.2 pg (27.0-31.0); Mean Corpuscular Volume 84.8 fl (80.0-94.0); Metamyelocyte 3 % (0-0); Monocytes 2 % (0-10); Neutrophil 53 % (42-75); Platelet Count 398 thou/uL (130-400); RBC Distribution Width 14.7 % (11.5-14.5); Red Blood Cell (RBC) Count 3.38 mill/uL (4.70-6.10); White Blood Cell (WBC) Count 21.2 thou/uL (4.8-10.8)
[2018-01-24] MEDS: Meropenem 2 GM in Sodium Chloride 0.9% 100 ML IVPB SCH (07:40)
[2018-01-24] MEDS: Clindamycin/D5W 900 MG in Premix Bag 1 BAG IVPB SCH (07:41)
[2018-01-24 08:06] LABS: Actual Bicarbonate (HCO3a) 27.2 mEq/L (22-26); Base Excess (BEa) 4.7 mEq/L (0 (+/-) 2.5); CO2 Tension 32.1 mmHg (35.0-45.0); Hematocrit-ABG 31.7 % (42.0-52.0); Hemoglobin (Hb) 9.1 g/dL (14.0-18.0); O2 Tension (PaO2) 55.2 mmHg (80.0-100.0); pH, Arterial 7.55 (7.35-7.45)
[2018-01-24 08:07] LABS: Calcium, Ionized 0.8 mmol/L (1.12-1.30)
[2018-01-24 08:08] LABS: ALV-art Gradient 403.775 (0-20); Puncture Site ALINE
--- NOTE | 2018-01-24 08:28 | EKG ---
Test Reason : CODE BLUE Blood Pressure : / mmHG Vent. Rate : 070 BPM Atrial Rate : 070 BPM P-R Int : 146 ms QRS Dur : 100 ms QT Int : 478 ms P-R-T Axes : 030 -15 019 degrees QTc Int : 516 ms Normal sinus rhythm Nonspecific T wave abnormality Prolonged QT Abnormal ECG When compared with ECG of 10-JAN-2018 14:39, (Unconfirmed) Nonspecific T wave abnormality now evident in Lateral leads Confirmed by YOVANI CARLOS ([id number]) on 01/24/2018 8:27:42 AM Referred By: FRANCOIS Confirmed By:YOVANI CARLOS
--- NOTE | 2018-01-24 10:10 | RAD ---
AP VIEW CHEST: HISTORY: Ventilator-dependent patient. FINDINGS: AP view chest is obtained on 01/24/18. Comparison is made to previous exam from 01/23/18. AP view chest demonstrates nasogastric and endotracheal tubes in place. A left upper extremity PICC line is again seen. A right subclavian central line is seen. Pulmonary vascular congestion is seen. A left-sided pleural effusion is noted. No significant inter berenice change is seen since the previous comparison exam from 1 day earlier. IMPRESSION: 1. Continued left lower lobe atelectasis or pneumonia with some component of left-sided effusion. 2. Multiple lines and tubes in good position. POS: [facility]
--- NOTE | 2018-01-24 12:04 | PDOC.GSPN ---
Surgery Progress Note: Subj - Subjective Narrative: Subjective: Patient is intubated and sedated. His family member the bedside states that he has been fluttering his eyelids but hasn't responded to voice in a meaningful way. Objective: His abthera is in place with serous drainage. Urine output is very minimal and BUN and creatinine continue to climb. He did spike a fever to 102.9 early this morning but has defervesced since then. Cultures were sent at that time. He is still only the fat and vasopressin but the nurses slowly coming down on the dosages. Assessment/plan: Critically ill status post extended right hemicolectomy and splenectomy for necrotic bowel and splenic abscess/mass. Multiple other medical issues including pneumonia and acute renal failure. He had an asystolic arrest from which he was resuscitated preoperatively and is at risk for hypoxic brain damage from that. He is too ill and it is too early to assess his neurologic function accurately so we will just have to wait and see how he wakes up. He is gravely ill and his survival and functional recovery remained in doubt. If he requires dialysis femoral line will be placed. If he continues to spike fevers I may elect to take him back to the operating room this weekend for abdominal washout and examination. Otherwise he will return Friday for possible closure and ileostomy. Surgery Progress Note: Obj - Vital signs Vital signs: Vital Signs - Most Recent Temp Pulse Resp BP Pulse Ox 100.5 F H 89 24 H 116/50 L 90 L 01/24/18 08:00 01/24/18 08:00 01/24/18 10:00 01/24/18 06:41 01/24/18 08:00 Surgery Progress Note: Results - Labs Result Diagrams: 01/24/18 04:57 01/24/18 04:57 Lab results: Laboratory Results - last 24 hr 01/22/18 01/23/18 01/23/18 20:41 00:30 00:30 WBC 16.6 H RBC 3.40 L Hgb 9.6 L Hct 29.3 L MCV 86.1 MCH 28.3 MCHC 32.9 RDW 14.7 H Plt Count 392 MPV 8.0 Neutrophils % (Manual) 54 Band Neuts % (Manual) 36 H Lymphocytes % (Manual) 8 L Monocytes % (Manual) 2 Metamyelocytes % (Man) PT INR Specimen Type Puncture Site Bicarbonate Actual ABG pH ABG pCO2 ABG pO2 ABG O2 Sat Calc/Ashley ABG O2 Content ABG Base Excess ABG Hematocrit ABG Hemoglobin ABG Carboxyhemoglobin ABG Methemoglobin Giorgi Test A-a O2 Gradient Ionized Calcium Mode of Support Mechanical Rate Inspired O2 Tidal Volume Pressure Support PEEP or CPAP Sodium 135 L Potassium 3.7 Chloride 87 L Carbon Dioxide 24 Anion Gap 28 H BUN 24 Creatinine 3.15 H Estimated GFR (MDRD) 20 Glucose 359 H Calcium 7.1 L Phosphorus Magnesium CK-MB (CK-2) Troponin I Random Gentamicin Blood Type O POSITIVE Antibody Screen NEGATIVE Crossmatch See Detail 01/23/18 01/24/18 01/24/18 01:00 04:57 04:57 WBC RBC Hgb Hct MCV MCH MCHC RDW Plt Count MPV Neutrophils % (Manual) Band Neuts % (Manual) Lymphocytes % (Manual) Monocytes % (Manual) Metamyelocytes % (Man) PT 21.2 H INR 1.8 Specimen Type Puncture Site Bicarbonate Actual ABG pH ABG pCO2 ABG pO2 ABG O2 Sat Calc/Ashley ABG O2 Content ABG Base Excess ABG Hematocrit ABG Hemoglobin ABG Carboxyhemoglobin ABG Methemoglobin Giorgi Test A-a O2 Gradient Ionized Calcium Mode of Support Mechanical Rate Inspired O2 Tidal Volume Pressure Support PEEP or CPAP Sodium Potassium Chloride Carbon Dioxide Anion Gap BUN Creatinine Estimated GFR (MDRD) Glucose Calcium Phosphorus Magnesium CK-MB (CK-2) 18.3 H* Troponin I 0.057 H Random Gentamicin 13.8 H* Blood Type Antibody Screen Crossmatch 01/24/18 01/24/18 01/24/18 04:57 04:57 07:45 WBC 21.2 H RBC 3.38 L Hgb 9.5 L Hct 28.6 L MCV 84.8 MCH 28.2 MCHC 33.2 RDW 14.7 H Plt Count 398 MPV 8.0 Neutrophils % (Manual) 53 Band Neuts % (Manual) 32 H Lymphocytes % (Manual) 10 L Monocytes % (Manual) 2 Metamyelocytes % (Man) 3 H PT INR Specimen Type ARTERIAL Puncture Site DESTINY Bicarbonate Actual 27.2 H ABG pH 7.55 H* ABG pCO2 32.1 L ABG pO2 55.2 L ABG O2 Sat Calc/Ashley 90.5 L ABG O2 Content 11.5 L ABG Base Excess 4.7 H ABG Hematocrit 31.7 L ABG Hemoglobin 9.1 L ABG Carboxyhemoglobin 1.0 ABG Methemoglobin 0.5 Giorgi Test NOT DONE A-a O2 Gradient 403.775 H Ionized Calcium 0.8 L Mode of Support SIMV/PSV Mechanical Rate 30 Inspired O2 70 Tidal Volume 470 Pressure Support 10 PEEP or CPAP 7.0 Sodium 136 133 L Potassium 3.7 3.5 L Chloride 87 L 88 L Carbon Dioxide 29 Anion Gap 24 H BUN 25 Creatinine 3.47 H Estimated GFR (MDRD) 18 Glucose 266 H Calcium 7.0 L Phosphorus 4.5 Magnesium 1.3 L CK-MB (CK-2) Troponin I Random Gentamicin Blood Type Antibody Screen Crossmatch
[2018-01-24] MEDS: Albumin 25% 25 GM/100 ML BOT IVPB SCH ×2 (13:32→18:01)
--- NOTE | 2018-01-24 13:38 | CON ---
DATE OF CONSULTATION: 01/24/2018 HISTORY OF PRESENT ILLNESS: A 67-year-old patient known to me from consultation completed at the [facility] of this month when he presented with a history of hypertension, gout, obesity, and progressive ly worsening upper quadrant abdominal pain associated with fever. He initially treated with azithrom ycin with some improvement and then recrudescence. The pain at this time was more localized towards the back area surrounding the flank region on the left side and sometimes with pain in the right uppe r quadrant. The patient went back to [place] emergency room and was noted to have pleural effusions and was transferred to [place] [facility] where CT scan showed a possible splenic abscess. A CT of the abdomen and pelvis demonstrated perisplenic abscesses and subcapsular as well as possible diverticulitis, left colon. The patient was started on broad spectrum coverage and admitted. The herb [facility] had evaluation by General Surgery and by Gastroenterology, the impression was a splenic flexure of colon diverticulitis associated with left pleural effusion and pneumonia. The operations manager/coordinator felt that there was an evidence of splenic abscess plus the possibility of parapneumonic effusion. The operations manager/coordinator felt it would be very atypical for diverticulitis, because of the splenic absc ess and the possibility of malignancy was considered, but an observation was made to normal colonosco py in 2012. The patient had 2 or 3 episodes of thoracentesis and the results identified an exudative effusion, but not empyema. The patient continues on broad spectrum coverage. All the cultures were negative including blood, pleural fluid aspirate. Eventually, he had an abdominal aspirate guided b y CT scan, this was performed close to the end of the patient's hospital stay. A total volume of 130 mL of 10 milky liquid was obtained and the pathology report for this specimen was remarkable for no evidence of malignant cells, predominance of acute and chronic inflammatory cells plus mesothelial ce lls. Cultures from this fluid for acid fast, and aerobic and anaerobic organisms was negative. His white cell count decreased to 9000, still with a predominance of mature neutrophils. Last chest x-ra y before discharge was from 01/16/2018, which showed left pleural fluid, pulmonary vascular congestio n. The patient had a PICC line inserted and was discharged I believe to swing bed in [place] and he developed worsening abdominal pain in [place]. He had a repeat CT scan of the abdomen, which showe d a large amount of stool in the right colon with an obstruction at the level of the splenic flexure with still the noted perisplenic abscesses and intraparenchymal abscess. There is some evidence of i nflammation about the sigmoid colon as well. Labs at that time showed a BUN of 15, glucose 138 and a white cell count of 11,000, platelets 391. Dr. Shea's impression was colonic obstruction and he r ecommended a laparotomy with colon resection. This was planned for the next day; however, the patien t decompensated and this is after overnight stability after transferred to [facility] in [facility] for the morning procedure. He became slightly dyspneic. The morning labs showed sodium of 125, carbon dioxide 24, creatinine 1.84 and white cell count was 7.2. He was not complaining of any abdominal pain, no vomiting, and on arrival from his shower, nurses found him asystolic. CPR was ini tiated. Initial intubation was unsuccessful. The bile was noted in the oropharynx and then he was f inally intubated. CPR was held with good femoral pulses obtained and transferred to the Intensive Ca re Unit with vasopressors, intubated. He was taken to the operating room. In the operating room, th ere was evidence of this inflammatory process in the splenic hilum with splenic abscesses and a hard area in the splenic hilum and pancreatic tail, which could be a tumor or inflammatory mass. The sple en was attached to one segment of the stomach or the gastric area and colonic area at the splenic fle xure. There is gangrenous right colon from the obstruction and distention, ischemic transverse colon . There was rupture of the segment of the right colon, which led to feculent peritonitis. This area was resected. The spleen was resected together with the segment of the gastric area, part of the ta il of the pancreas and part of the colon as well. The patient was transferred in critical condition to the ICU. PAST MEDICAL HISTORY: Hypertension, obesity, prior colonoscopy with diverticulosis, dyslipidemia, ty pe 2 diabetes. SOCIAL HISTORY: He lives in [place]. 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 Never smoker. FAMILY HISTORY: Heart disease. ALLERGIES: PENICILLIN with rash. MEDICATIONS: Meropenem, vancomycin 1 dose, clindamycin, pressors and sedatives for maintenance of th e sedation during mechanical ventilation, IV fluids, insulin as needed, inhalers. PHYSICAL EXAMINATION: VITAL SIGNS: Show T-max of 102.9, blood pressure 120/46, heart rate 81. GENERAL: The patient has a Walker catheter in place and a left upper extremity PICC line, right subcl isai central line is seen. The patient has an endotracheal tube. SKIN: Examination shows the midline incision with the ABThera cover. HEENT: His eye movements appear to be conjugate. Pupils are about 2 mm and reactive. Some element of chemosis. Orotracheal intubation. Nasal passages are patent. NECK: No jugular venous distention. LUNGS: Symmetric breath sounds with diminished breath sounds at the bases. HEART: S1, S2, regular rate. No S3, S4. ABDOMEN: Mildly distended. Bowel sounds are not present. A Walker catheter in place. Groin and per ineal area appeared normal. EXTREMITIES: No joint inflammatory activity. Movements are not possible to examine due to sedation. LABORATORY DATA: White cell count 21,000, hemoglobin 9.5, MCV 84, platelets 398 with 52% neutrophils , 32% bands. INR 1.8, pH 7.55, pCO2 32, pO2 55, base excess is 4.7. Sodium 136, creatinine 3.47 wit h a GFR calculated at 28. Lactic acid was 1.1 from 01/22/2018, has not been repeated since. Calcium 7.0. Urinalysis with 7-10 WBCs, 100 protein, random gentamicin 13.8, it is 8 hours after the admini stration. Microbiology: We have less samples from the aspirate from 01/17. Looking at the orders, we have two sets of the blood cultures pending. I do not see any samples from the surgical site. Pa thology is pending at this time from the specimen submitted by Dr. Shea. The radiology reports larry ateral bibasilar atelectasis and chest x-ray with left-sided pleural effusion. The CT scan findings noted above. ASSESSMENT: 1. Type 2 diabetes. 2. Obesity. 3. Hypertension. 4. Splenic abscesses with inflammatory process, splenic hilum versus malignancy. Possibility of div erticulitis has been considered, but it is more likely to reflect this inflammatory process plus/yady s, possible malignancy at the splenic hilum, pancreatic tail within the inflammatory process, colonic obstruction and the final event which led to the sepsis syndrome which shows the distention of the r ight colon and transverse colon with ischemia, necrosis and perforation with fecal peritonitis and se psis. DISCUSSION: The patient has had the initial surgical procedure and is currently on broad spectrum co verage. Gentamicin has been added to meropenem. He has received 1 dose of vancomycin. If he surviv es this initial phase of the acute illness, then Dr. Shea is planning to go back a second time for establishment of an ileostomy washout and revision of the surgical site. Waiting on pathology for th e final diagnosis of the initial process that led to this catastrophic events described above.
[2018-01-24] MEDS: Sodium Chloride 0.45% 1,000 ML IV SCH ×2 (14:00→18:15)
[2018-01-24] MEDS: Pantoprazole 40 MG VIAL IVP SCH (20:36)
--- NOTE | 2018-01-24 22:10 | PRG ---
DATE OF SERVICE: 01/24/2018 SUBJECTIVE: Mr. Dickey is really not doing much from a neurological standpoint. He had mid position pupils, it did not react. I did not get a corneal reflex. He had no gag reflex. He had no respons e to sternal rub. He has flaccid. OBJECTIVE: GENERAL: He still on pressors this morning. The doses are coming down. He is afebrile. Respirator y rates per mechanical ventilation. VITAL SIGNS: Heart rates in the 70s, blood pressure 114/56. LUNGS: Clear. HEART: Regular rhythm. ABDOMEN: Soft and distended. EXTREMITIES: Without asymmetry. LABORATORY DATA: White count 21.2, hemoglobin 9.5, platelets 398. Sodium 136, potassium 3.7, chlori de 87, bicarbonate 29, BUN 25, creatinine 3.47, glucose 266. Troponin was 0.057. Magnesium was 1.3 today. PH 7.55, pCO2 of 32, pO2 of 55. His bicarbonate drip was discontinued today. His ventilatory rate was decreased. Chest radiograph was reviewed, which is suggestive of haziness in his left side, which I suspect is m ostly effusion. Tubes are in proper position. IMPRESSION: Abdominal sepsis after gangrenous bowel was resected after a cardiorespiratory arrest on surgical floor. Anoxic injuries like to be the limiting factor here. If he has no neurological improvement as I expl ained to the daughter at the bedside by Friday, then EEG and further neurological testing should be e ntertained. He actually may be close to clinical brain , but we will reassess him on a daily ba sis. Critical care time was 30 minutes.
[2018-01-25] MEDS: MEROPENEM 1 GM/50 ML 1 GM in Premix Bag 1 BAG IVPB SCH ×2 (02:00→09:43)
[2018-01-25] MEDS: Albuterol Sulfate 2.5 mg/3 ml Neb NEB SCH ×6 (02:27→22:33)
[2018-01-25] MEDS: Albumin 25% 25 GM/100 ML BOT IVPB SCH ×4 (05:24→18:20)
[2018-01-25 06:06] LABS: INR-International Normal Ratio 1.8; Prothrombin Time 21.4 SEC (12.0-14.7)
[2018-01-25 06:13] LABS: Anion Gap 28 mmol/L (10-20); BUN (Urea Nitrogen) 32 mg/dL (8.4-25.7); Calc. Creatinine Clearance 29 mL/min (70-130); Calcium 6.5 mg/dL (7.8-10.44); Carbon Dioxide 26 mmol/L (23-31); Chloride 85 mmol/L (98-107); Estimated GFR-MDRD 13; Glucose 94 mg/dL (80-115); Sodium 134 mmol/L (136-145)
[2018-01-25 06:19] LABS: Band 33 % (5-11); Lymphocytes 1 % (21-51); MDiff Complete? YES; Mean Corpuscular HGB CONC 33.4 g/dL (32.0-36.0); Mean Corpuscular Hemoglobin 28.1 pg (27.0-31.0); Mean Corpuscular Volume 84.1 fl (80.0-94.0); Monocytes 1 % (0-10); Neutrophil 65 % (42-75); Nucleated RBC 2 % (0); Platelet Count 356 thou/uL (130-400); RBC Distribution Width 14.8 % (11.5-14.5); Red Blood Cell (RBC) Count 2.84 mill/uL (4.70-6.10); Toxic Granulation SLIGHT; Vacuoles SLIGHT; White Blood Cell (WBC) Count 38.8 thou/uL (4.8-10.8)
[2018-01-25] MEDS: Sodium Chloride 0.45% 1,000 ML IV SCH ×2 (06:45→12:40)
[2018-01-25] MEDS: Norepinephrine 8 MG/0.9% NS 250 ML IVPB SCH ×3 (06:51→20:01)
--- NOTE | 2018-01-25 09:26 | RAD ---
AP VIEW CHEST: HISTORY: Ventilator-dependent patient. FINDINGS: AP view chest is obtained on 01/25/18. Comparison is made to previous exam from 03/27/18. AP view chest demonstrates nasogastric and endotracheal tubes to be in place. A left upper extremity PICC line is present. EKG leads are seen over the chest. Cardiomegaly noted. Pulmonary vascular c ongestion is seen. There is blunting of the left costophrenic angle compatible with a left-sided ple ural effusion. POS: H
[2018-01-25 10:48] LABS: Actual Bicarbonate (HCO3a) 25.6 mEq/L (22-26); Base Excess (BEa) 1.8 mEq/L (0 (+/-) 2.5); CO2 Tension 36.4 mmHg (35.0-45.0); Hematocrit-ABG 29.2 % (42.0-52.0); Hemoglobin (Hb) 7.9 g/dL (14.0-18.0); O2 Tension (PaO2) 67.4 mmHg (80.0-100.0); pH, Arterial 7.47 (7.35-7.45)
[2018-01-25 10:50] LABS: Calcium, Ionized 0.7 mmol/L (1.12-1.30); Puncture Site ALINE
[2018-01-25] MEDS: Sodium Chloride 0.9% 1,000 ML IV SCH (14:00)
--- NOTE | 2018-01-25 14:09 | CON ---
DATE OF CONSULTATION: 01/25/2018 NEPHROLOGY CONSULTATION NOTE REASON FOR CONSULTATION: Anuria. HISTORY OF PRESENT ILLNESS: This is a very pleasant 67-year-old gentleman who presented to the hospital on 01/22/2018 who was going for a laparotomy and had an asystole episode and CPR was performed. The patient is resting and can give no further history. The patient's creatinine was 1.1 on 01/22, which increased to 3.0 on 01/23, and increased to 4.5. The patient is not making any urine. PAST MEDICAL AND SURGICAL HISTORY: Significant for colonoscopy, stool impaction , ischemic bowel, abdominal surgery, cataract surgery, tonsillectomy, diabetes mellitus, morbid obesity. SOCIAL HISTORY: No alcohol or drug use. FAMILY HISTORY: Negative for ESRD. ALLERGIES: Reviewed. HOME MEDICATIONS: List reviewed. CURRENT MEDICATIONS: List reviewed. Review of systems unobtainable. PHYSICAL EXAMINATION: GENERAL: Patient is resting. VITAL SIGNS: Afebrile, pulse 73, breathing at 16, blood pressure 116/53. GENERAL APPEARANCE AND MENTAL STATUS: Fair. HEAD/NECK: Normocephalic, atraumatic. EYES: EOMI. No deformity. EARS: Clear. No ulcers. NOSE: Intact. No lesions. MOUTH: Clear. No discharge. THROAT: Clear. No exudate. LUNGS: Clear. No crackles. CARDIAC: S1, S2. No rub. ABDOMEN: Benign. BS+. GENITALIA/RECTUM: Walker absent. BACK/EXTREMITIES: Edema 4+ Ulcer-. NEUROLOGICAL: The patient is resting. SKIN: Rash- Bruise- LYMPHATICS: Edema- Ulcer-. LABORATORY DATA: Show potassium 5, creatinine 4.58. ASSESSMENT AND RECOMMENDATIONS: 1. Acute kidney injury with chronic kidney disease, most likely due to decreased effective arterial blood volume in the setting of cardiac arrest. No urgent indication for dialysis. Continue gentle hydration. 2. Anemia, stable. 3. Medications based on glomerular filtration rate are appropriate. We will follow the patient's renal function closely and plan dialysis as initiated. The patient is currently on pressors and the prognosis is extremely poor. MTDD
--- NOTE | 2018-01-25 15:11 | PRG ---
DATE OF SERVICE: 01/25/2018 SUBJECTIVE: Mr. Dickey is in the ICU intubated. There have been some noticeable movements in the le ft foot, but no other reaction yet. The patient is off sedation for quite a while. An EEG is planne d for tomorrow I believe. PHYSICAL EXAMINATION: VITAL SIGNS: His T-max was 102 yesterday at 5:00 a.m. He has been afebrile since. BP 116/53, pulse 73, respirations 24. SKIN: Exam shows a Walker catheter in left-sided triple lumen IJ and the PICC line in place. HEENT: Pupils are about 2 mm each side. I could not identify any reaction to light. No eye movemen ts are noted. Orotracheal intubation. LUNGS: Symmetric breath sounds. HEART: S1, S2, regular rate. ABDOMEN: With ABThera cover. No drains are noted. Urinary output was 107 over the past 24 hours. I could not obtain any movements even on stimulation. LABORATORY DATA AND IMAGING DATA: WBC count 38,000, hemoglobin 8, platelets 356 with 33% bands, pH 7 .47, pCO2 36, pO2 67.4, sodium 134, creatinine 4.58. Two sets of blood cultures and urine culture no growth thus far. The spleen aspirate final result, negative cultures. Chest x-ray with NG and ET t ube in place, PICC line and central line, blunting costophrenic angle. ASSESSMENT AND DISCUSSION: Type 2 diabetes, obesity, hypertension, splenic abscesses with splenic hi lum inflammatory process versus malignancy and then obstruction of colon with distention of right col on with ischemia and rupture, fecal peritonitis and sepsis with asystole and now the possibility of a noxic brain injury. The patient will continue on meropenem and supportive management. Waiting on ev aluation of his neurological function. I discussed the case and different details up to the time of the cardiac arrest with son. Waiting on pathology results.
--- NOTE | 2018-01-25 17:23 | PRG ---
DATE OF SERVICE: 01/25/2018 SUBJECTIVE: Mr. Dickey remains unresponsive with a sternal rub. I could only get him to move his le ft foot. I could not get a gag, could not get corneals. His pupils are midposition and fixed. No m ovement of his upper extremities. OBJECTIVE: VITAL SIGNS: Blood pressure 119/54, heart rate 75, respiratory rate is per mechanical ventilation, 2 4. LUNGS: Clear. HEART: Regular rhythm. S1 and S2 are normal. ABDOMEN: Soft and distended. LABORATORY DATA: White count is 38.8, hemoglobin 8.0 and platelets 356. Sodium 134, potassium 5, chloride 85, bicarbonate 26, BUN 32 and creatinine 4.58. He is basically anuric. PH 7.47, CO2 of 36 and pO2 6.7. ASSESSMENT AND PLAN: Potassium is 4.7, normal. I would turn down his mechanical ventilation, but I suspect his potassium will continue to rise, so we will continue to hyperventilate him. Probably, ne ed dialysis tomorrow if the family wants to keep the door open for ongoing care measures, although I suspect he will end up having a severe anoxic injury. I will order an EEG in the morning. I met wit h the son and answered all of his questions. CRITICAL CARE TIME: 30 minutes.
[2018-01-25] MEDS: Vasopressin 40 UNIT, Admixture Fee 1 EACH in Sodium Chloride 0.9% 100 ML IV SCH (18:20)
--- NOTE | 2018-01-25 18:33 | PRG ---
DATE OF SERVICE: 01/25/2018 SUBJECTIVE: Mr. Dickey is still not really responsive. His nurse was able to go down on the vasopressin, but then had to turn it back up. He is still anuric and only made about 100 mL of urine yesterday. White count is 38, hematocrit 24. INR 1.8. Potassium is 5 today. Bicarbonate is okay. BUN is 32 and creatinine is 4.58. His VAC is in place and draining fairly copious amounts of serous fluid. His nurse has already changed out the VAC this morning. He has not had any fevers since early yesterday morning. ASSESSMENT AND PLAN: Critically ill status post asystolic arrest of unknown duration. He is still requiring pressors and is still anuric. I anticipate that he will require dialysis within the next day or two. Nephrology has been consulted. Dr. Shea plans to take him back to the operating room tomorrow for repeat washout and possible ileostomy. Given the severity of his edema and swelling, I am not sure his abdomen will be able to be closed. I have cut down his maintenance fluids since I believe he is currently fluid overloaded and I do not think that additional fluids will help his urine output or renal failure. Neurologic condition is still undetermined. No intervention planned today unless Nephrology decides to institute dialysis. MARTINEZ
[2018-01-25] MEDS: Meropenem 500 MG in Sodium Chloride 0.9% 100 ML IVPB SCH (20:44)
[2018-01-25] MEDS: Pantoprazole 40 MG VIAL IVP SCH (20:44)
[2018-01-25] MEDS ORDERED: Meropenem 0.5 GM in Sodium Chloride 0.9% 100 ML IVPB SCH (21:00)
[2018-01-26] MEDS: Albumin 25% 25 GM/100 ML BOT IVPB SCH ×3 (00:29→12:11)
[2018-01-26] MEDS: Sodium Chloride 0.9% 1,000 ML IV SCH (00:35)
[2018-01-26] MEDS: Norepinephrine 8 MG/0.9% NS 250 ML IVPB SCH ×3 (00:36→10:18)
[2018-01-26] MEDS: Albuterol Sulfate 2.5 mg/3 ml Neb NEB SCH ×6 (02:15→22:57)
[2018-01-26 05:54] LABS: INR-International Normal Ratio 2.3; Prothrombin Time 25.7 SEC (12.0-14.7)
[2018-01-26 06:05] LABS: Anion Gap 32 mmol/L (10-20); BUN (Urea Nitrogen) 38 mg/dL (8.4-25.7); Calc. Creatinine Clearance 25 mL/min (70-130); Calcium 6.1 mg/dL (7.8-10.44); Carbon Dioxide 21 mmol/L (23-31); Chloride 88 mmol/L (98-107); Estimated GFR-MDRD 11; Sodium 135 mmol/L (136-145)
[2018-01-26 06:09] LABS: Glucose 54 mg/dL (80-115)
[2018-01-26] MEDS: Dextrose 5 % And 0.9 % NaCl 1,000 ML IV SCH ×2 (06:23→19:57)
[2018-01-26 06:25] LABS: Band 15 % (5-11); Hemoglobin 8.1 g/dL (14.0-18.0); Lymphocytes 4 % (21-51); MDiff Complete? YES; Mean Corpuscular HGB CONC 33.3 g/dL (32.0-36.0); Mean Corpuscular Volume 84.2 fl (80.0-94.0); Mean Platelet Volume 8.6 fL (7.4-10.4); Monocytes 3 % (0-10); Myelocyte 1 % (0-0); Neutrophil 77 % (42-75); Nucleated RBC 4 % (0); Platelet Count 371 thou/uL (130-400); RBC Distribution Width 14.9 % (11.5-14.5); Red Blood Cell (RBC) Count 2.87 mill/uL (4.70-6.10); White Blood Cell (WBC) Count 31.4 thou/uL (4.8-10.8)
[2018-01-26] MEDS ORDERED: Dextrose 50% Abboject 50 ML SYRINGE SLOW IVP SCH (06:30)
[2018-01-26 07:15] LABS: Actual Bicarbonate (HCO3a) 18.9 mEq/L (22-26); Hematocrit-ABG 37.4 % (42.0-52.0)
[2018-01-26] MEDS ORDERED: Sodium Chloride 0.9% 10 ML ONE ×2 (07:56→09:38)
[2018-01-26] MEDS ORDERED: Heparin 10,000 UNITS/1 ML VIAL ONE (07:56)
[2018-01-26] MEDS ORDERED: Bupivacaine HCl 0.5%/Epinephrine 1:200,000/PF 30 ml Vial ONE (07:56)
[2018-01-26] MEDS ORDERED: Lidocaine 2% 10 ML INJ ONE (07:56)
[2018-01-26 08:08] LABS: Base Excess (BEa) -1.3 mEq/L (0 (+/-) 2.5); CO2 Tension 33.2 mmHg (35.0-45.0); pH, Arterial 7.44 (7.35-7.45)
[2018-01-26 08:09] LABS: Hemoglobin (Hb) 7.5 g/dL (14.0-18.0)
[2018-01-26 08:10] LABS: Calcium, Ionized 0.6 mmol/L (1.12-1.30); Puncture Site LINE
[2018-01-26] MEDS ORDERED: Heparin 0 ML ONE (08:13)
--- NOTE | 2018-01-26 08:28 | RAD ---
PORTABLE CHEST: Date: 01/26/18 COMPARISON: Prior day's study. HISTORY: Respiratory distress. FINDINGS: Endotracheal and NG tubes, as well as right subclavian line are all unchanged in position. Heart size is enlarged. Parenchymal lung changes are stable. IMPRESSION: Stable chest. POS: VERNON
[2018-01-26] MEDS: Meropenem 500 MG in Sodium Chloride 0.9% 100 ML IVPB SCH ×2 (09:58→21:16)
--- NOTE | 2018-01-26 10:16 | OP ---
DATE OF PROCEDURE: 01/26/2018 PREOPERATIVE DIAGNOSES: Staged planned laparotomy with ABThera, planned ileostomy and hemodialysis c atheter with acute renal failure, anoxic encephalopathy, anemia. POSTOPERATIVE DIAGNOSIS: Staged planned laparotomy with ABThera, planned ileostomy and hemodialysis catheter with acute renal failure, anoxic encephalopathy, anemia. PROCEDURES: Planned exploratory laparotomy, ileostomy, abdominal washout, ABThera change. Right IJ hemodialysis catheter placement. Fluoroscopy and ultrasound used. SURGEON: Dr. Brien Shea ANESTHESIA: General. FINDINGS: The abdominal cavity was free of any feculent material. There was no blood. Bowel was he althy. No acute findings noted. Preoperative hemoglobin 8. Blood transfused 1 unit of blood. The patient remained hemodynamically stable throughout the operati on. Levophed could be weaned off. PROCEDURE: The patient was taken to the operating room under general anesthesia, neck and chest were clipped of hair, prepared with ChloraPrep. ABThera removed leaving the plastic barrier within the a bdominal cavity and abdomen were prepared with Betadine, draped in routine fashion. Ultrasound used to cannulate the right internal jugular vein and J-wire threaded. Trocar catheter removed. Skin inc ised and enlarged sharply. Stab incision made over the right chest and using the tunneling device, p recurved angiodynamics cuffed tunnel hemodialysis catheter tunneled between the two incisions, placin g the fabric cuff beneath the skin exit site and catheter secured with 2 interrupted sutures of 3-0 n ylon. Biopatch sterile dressing applied. Smaller medium sized dilators placed over the J-wire into the internal jugular vein and removed. Dilator and pull-away sheath placed over the J-wire in superi or vena cava and dilator and J-wire removed. Catheter placed with pull-away sheath. Pull-away sheat h removed. Platysma was approximated with 4-0 Monocryl, skin with 4-0 Monocryl and DermaGlue and evonne rile dressings applied. Each port aspirated of blood and flushed with saline solution and heparinize d saline solution 1000 units heparin per mL indicated volume of the port. Fluoroscopic images reveal ed good line placement. ABThera apparatus was removed and abdominal cavity thoroughly irrigated with saline solution. There was no contamination. Small bowel was healthy, colon was healthy. No acute findings were noted. Il eum was identified and a circular defect made in the right lower quadrant for an ileostomy. A circul ar defect of skin was excised with the cautery. The plug of subcutaneous tissue was removed and a cr uciate incision made in the anterior rectus sheath and rectus muscle split medially and laterally and posterior fascia, peritoneum opened and dilated with two fingers. A Davie placed and the mesenter y configured for ileostomy and ileostomy brought through the abdominal wall, reaching easily. It was held in place with a Erie as ABThera apparatus was applied. Stoma place applied after ileostomy maturation completed by excising the staple line and placing 4 turn bolt sutures of 3-0 Vicryl and in terrupted 3-0 Vicryl sutures to complete maturation ileostomy. Stoma placed and applied and all appl iance secured. The patient tolerated the procedure well. One unit of blood transfused due to preope rative hemoglobin of 8.
[2018-01-26] MEDS: EPINEPHrine 4 MG, Admixture Fee 1 EACH in Dextrose 5% in Water 250 ML IVP SCH (10:18)
--- NOTE | 2018-01-26 10:53 | RAD ---
PORTABLE AP CHEST RADIOGRAPH: Date: 01-26-18 History: On ventilator. Placement of hemodialysis catheter. Comparison: 01-26-18 at 0427 FINDINGS: Endotracheal tube, nasogastric tube, left sided PICC line and right subclavian central venous cathete r remains in place and unchanged in position. There has been interval placement of a tunneled right i nternal jugular vein hemodialysis catheter, tip overlying the distal SVC. No pneumothorax is seen. Th e cardiac silhouette is magnified by projection. There is increased bilateral perihilar interstitial densities which may be related to pulmonary edema, but the cardiac silhouette and bronchovascular mar kings are accentuated due to shallow depth of inspiration, portable technique. Suggestion of small le ft pleural effusion with atelectasis in the left midlung zone. No other interval change. IMPRESSION: 1. Interval placement of a tunneled right internal jugular vein hemodialysis catheter. Remaining line s and tubes are stable in position. 2. Small left pleural effusion with atelectasis left lung base. 3. Mild increase in perihilar interstitial opacities which may be related to mild pulmonary edema or infectious process. POS: VERNON
--- NOTE | 2018-01-26 11:01 | PRG ---
DATE OF SERVICE: 01/26/2018 SUBJECTIVE: Mr. Alexis Dickey was seen early this morning before his operation. This morning, his pu pils were nonreactive. However, he was on vasopressin, Levophed. The patient did not have any respo nse to painful stimulus sternal rub. Dr. Hector reports over the weekend. Yesterday, Friday, he had leg movement to a sternal rub, although this morning, he does not have movement to noxious stimulus. His potassium is 6, hemoglobin 8. He is on Levophed and vasopressin. Dr. Lynn is seeing him for a nephrology standpoint. Today, we placed a hemodialysis catheter cuffed tunneled, washed his abdomen out. Cavity was clean, there was no evidence of bleeding or infection. Ileostomy was formed at ther e was replaced and he will need definitive wound closure Friday if decision is made to continue ca re. Today, Dr. Bassam Anaya is planning an apnea test and probable EEG. Await these studies for b rain function, suspected anoxic injury from his code event 3 days ago. We will attempt to wean the L evophed today. Pending his clinical status and family decision and we can tentatively plan definitiv e wound closure Friday possibly. I have talked to pathology. The definitive pathology results be available tomorrow. ASSESSMENT AND PLAN: 1. Acute renal failure, hyperkalemia, and initiate dialysis. 2. Levophed, vasopressor dependent and with his anemia, I have given him another unit of blood and w ill given a unit of blood with dialysis to maintain his pressure and dialyzing for electrolyte reason s. 3. Suspected anoxic brain injury, evaluations as described above. 4. Overall, prognosis is poor from his lack of neurological response, but with his acute renal failu re, we will initiate dialysis and evaluate and perform the evaluation as described above. I have dis cussed this with the family, informed the family the poor prognosis, but we will continue care for no w, pending above evaluations and awaiting pathology.
[2018-01-26] MEDS: Vasopressin 40 UNIT, Admixture Fee 1 EACH in Sodium Chloride 0.9% 100 ML IV SCH (11:42)
--- NOTE | 2018-01-26 11:57 | PRG ---
DATE OF SERVICE: 01/26/2018 SUBJECTIVE: The patient was seen in ICU. Son was at the bedside. The patient remains intubated and had surgery this morning. He is on 2 pressors and blood pressure was in 70s and 80s systolic. OBJECTIVE: GENERAL: This is an obese male, still in ICU and intubated. VITAL SIGNS: Temperature 99.6, pulse 72, respiratory rate 24, blood pressure 133/58. HEENT: Intubated. CARDIOVASCULAR: Tachycardia. RESPIRATORY: Clear. GASTROINTESTINAL: Abdomen is soft. MUSCULOSKELETAL: 1+ edema. DERMATOLOGIC: No skin rash. NEUROLOGIC: Intubated and nonresponsive. LABORATORY DATA: Hemoglobin is 8.1, potassium 6.0, BUN 38, creatinine is 5.3. ASSESSMENT AND PLAN: 1. Acute kidney injury on chronic kidney disease with worsening creatinine of 5.3 from 4.5 with no s ignificant urine output. He is also hyperkalemic. It did have a discussion with the son at the beds amanda and family wishes to have any aggressive measures done. I also had discussion with Dr. Shabbir benitez d also Dr. Anaya. There is concern for patient being brain and did not even need any sedation during surgery today and family is further pursuing that this moment. Not sure if the renal replace ment will add any positive outcome to the long-term prospect of this patient, but per family wishes, we will attempt for dialysis for hyperkalemia to prevent further complications and family understands the risk with dialysis given the hypotension and they are willing to take the risk. We will attempt to have dialysis as tolerated today with close monitoring. 2. Anemia, rule out any bleed. 3. Hyperkalemia. We will have dialysis as mentioned above. 4. Acidosis. 5. Group Home prognosis is poor. We will have dialysis if tolerated. Family understands the risk ass ociated with dialysis and is okay with treatment today.
[2018-01-26] MEDS ORDERED: Heparin 10,000 UNITS/ 10 ML VIAL ONE (12:00)
--- NOTE | 2018-01-26 12:42 | PQF ---
JEFFREY RAMÍREZ RICHARD D MD [id number] [facility] [id number] CLINICAL DOCUMENTATION IMPROVEMENT CLARIFICATION FORM: ICD-10 Updated PLEASE DO AN ADDENDUM TO THE PROGRESS NOTE WITH ANY DOCUMENTATION UPDATES OR ADDITIONS AND CARRY THROUGH TO DC SUMMARY. THANK YOU. DATE: 01-26-18 ATTN: DR. PARRISH Please exercise your independent, professional judgment in responding to the clarification form. Clinical indicators are provided on the bottom of this form for your review Please check appropriate box(s): [ ] Hypovolemic Shock [ ] Cardiogenic Shock [ yes ] Septic Shock [ ] Shock Unspecified [ ] Other diagnosis [ ] Unable to determine For continuity of documentation, please document condition throughout progress notes and discharge summary. Thank You. CLINICAL INDICATORS - SIGNS / SYMPTOMS / LABS 4-12 OP NOTE: SEPSIS SEVERE ACIDOSIS COLON OBSTRUCTION 4- BP: 50 / 29 MAP: - 51 - 103 4-14 58 - 114 - HILDA CONSULT: MARLENA ON CKD - MOST LIKELY D/T DECREASED EFFECTIVE ARTERIAL BLD VOLUME IN SETTING OF CARDIA ARREST -16 PN FRANCOIS: SUSPECT ANOXIC BRAIN INJURY RISK FACTORS 4-13 OP NOTE: SEPSIS EXPLORATORY LAPAROTOMY; ABD WASHOUT; RIGHT COLECTOMY; TRANSVERSE COLECTOMY; SPLENECTOMY; RIGHT COLON, CECUM WAS GANGRENOUS AND ISCHEMIC, PROXIMAL TRANSVERSE COLON ISCHEMIC EBL 200 4- VALDEMAR CONSULT: CARDIORESPIRATORY ARREST TREATMENTS: ICU VENTILATOR 4-13 MEDICATIONS BASED ON GLOMERULAR FILTRATION RATE 4-16 PN FRANCOIS: LEVOPHED, VASOPRESSOR DEPENDENT AND ANEMIA MAR: 01-23 TO 01-26 LEVOPHED 4- EPINEPHRINE DRIP -15 / -16 VASOPRESSIN - 4 UNITS PRBC, 4 UNITS FFP THANK YOU, GAYLE (This form is maintained as a part of the permanent medical record) 2015 [employer] All Rights Reserved Gayle Abdullahi RN, BS [email or web address] Cell [facility] CENTERTerri
[2018-01-26 14:31] LABS: HBSAg Index 0.22 S/CO (0-0.99); Hep B Surf Ag Non-Reactive S/CO (NonReactive)
--- NOTE | 2018-01-26 17:46 | PRG ---
DATE OF SERVICE: 01/26/2018 SUBJECTIVE: The patient had revision surgery by Dr. Shea. The ileostomy was prepared. Washout sh owed a good appearance of the intestine with all the loops being apparently viable. No abscesses or areas of peritonitis noted. The patient had an EEG done today. OBJECTIVE: VITAL SIGNS: His vital signs showed a T-max of 100.5, currently 98.2, blood pressure 118/53, pulse 7 2, respirations 24, and O2 sat 94%. SKIN: Shows the ABThera dressing in the midline of the open abdomen. The ileostomy in place and a c entral line in the left IJ position. Walker catheter. The urinary output is minimal. The patient pagan s a hemodialysis catheter inserted and started hemodialysis. HEENT: Pupils are midline about 2 mm, symmetric, but nonreactive. LUNGS: Symmetric air entry. CARDIAC: S1, S2, regular rate. ABDOMEN: Mild to moderately distended. EXTREMITIES: Pulses are 1+ in dorsalis pedis. Plantar reflexes are flexure by both right and left s amanda. LABORATORY DATA: White cell count 31.4, hemoglobin 8.1, platelets 371. Sodium 135, creatinine 5.36. Microbiology with negative blood cultures. Pathology of the social surgical specimen is still pend ing. ASSESSMENT AND DISCUSSION: Splenic abscesses, bowel obstruction with rupture necrosis of right-sided bowel with fecal peritonitis, sepsis, asystole with recovery, but now questions regarding possibilit y of anoxic encephalopathy. The patient had a repeat washout, establishment of the ileostomy, contin ues on meropenem. Supportive therapy and the main question here is the presence of anoxic encephalop athy.
[2018-01-26 18:49] LABS: Anisocytosis SLIGHT = 6-15 cells (100X) (0-5/hpf); Band 21 % (5-11); Hypochromia SLIGHT = 6-15 cells (100X) (0-5/hpf); Lymphocytes 3 % (21-51); MDiff Complete? YES; Mean Corpuscular HGB CONC 33.4 g/dL (32.0-36.0); Mean Corpuscular Hemoglobin 28.5 pg (27.0-31.0); Mean Corpuscular Volume 85.1 fl (80.0-94.0); Mean Platelet Volume 8.3 fL (7.4-10.4); Monocytes 6 % (0-10); Neutrophil 70 % (42-75); Ovalocytes SLIGHT = 2-5 cells (100X) (0-1/hpf); PLT Morphology Comment Appears Adequate; Platelet Count 273 thou/uL (130-400); RBC Distribution Width 14.8 % (11.5-14.5); Red Blood Cell (RBC) Count 3.17 mill/uL (4.70-6.10); White Blood Cell (WBC) Count 20.8 thou/uL (4.8-10.8)
[2018-01-26 19:02] LABS: ALT (SGPT) 536 U/L (8-55); AST (SGOT) 2011 U/L (5-34); Alkaline Phosphatase 280 U/L (40-150); Anion Gap 21 mmol/L (10-20); BUN (Urea Nitrogen) 28 mg/dL (8.4-25.7); Bilirubin, Total 2.9 mg/dL (0.2-1.2); Calc. Creatinine Clearance 33 mL/min (70-130); Calcium 6.4 mg/dL (7.8-10.44); Carbon Dioxide 24 mmol/L (23-31); Chloride 95 mmol/L (98-107); Estimated GFR-MDRD 14; Globulin 1.7 g/dL (2.4-3.5); Glucose 138 mg/dL (80-115); Potassium 4.4 mmol/L (3.5-5.1); Protein, Total 4.7 g/dL (5.8-8.1); Sodium 136 mmol/L (136-145)
[2018-01-26] MEDS: Pantoprazole 40 MG VIAL IVP SCH (21:18)
[2018-01-26] MEDS: HumaLOG 300 UNITS/3 ML VIAL SC PRN (21:57)
[2018-01-27] MEDS: Albuterol Sulfate 2.5 mg/3 ml Neb NEB SCH ×6 (02:36→22:13)
[2018-01-27] MEDS: HumaLOG 300 UNITS/3 ML VIAL SC PRN ×4 (04:06→21:12)
[2018-01-27 04:31] LABS: Prothrombin Time 23.5 SEC (12.0-14.7)
[2018-01-27 04:38] LABS: Band 15 % (5-11); Eosinophils 2 % (0-10); Hemoglobin 9.5 g/dL (14.0-18.0); Lymphocytes 4 % (21-51); MDiff Complete? YES; Mean Corpuscular HGB CONC 33.6 g/dL (32.0-36.0); Mean Corpuscular Hemoglobin 28.5 pg (27.0-31.0); Mean Corpuscular Volume 84.9 fl (80.0-94.0); Mean Platelet Volume 8.5 fL (7.4-10.4); Monocytes 2 % (0-10); Neutrophil 77 % (42-75); Nucleated RBC 6 % (0); Platelet Count 257 thou/uL (130-400); Polychromasia SLIGHT = 2-3 cells (100X) (0-2/hpf); RBC Distribution Width 14.8 % (11.5-14.5); Red Blood Cell (RBC) Count 3.34 mill/uL (4.70-6.10); White Blood Cell (WBC) Count 19.9 thou/uL (4.8-10.8)
[2018-01-27 04:49] LABS: ALT (SGPT) 408 U/L (8-55); AST (SGOT) 1252 U/L (5-34); Albumin 2.7 g/dL (3.4-4.8); Alkaline Phosphatase 312 U/L (40-150); Anion Gap 19 mmol/L (10-20); BUN (Urea Nitrogen) 32 mg/dL (8.4-25.7); Calc. Creatinine Clearance 29 mL/min (70-130); Calcium 6.6 mg/dL (7.8-10.44); Carbon Dioxide 26 mmol/L (23-31); Chloride 95 mmol/L (98-107); Estimated GFR-MDRD 12; Globulin 1.8 g/dL (2.4-3.5); Glucose 183 mg/dL (80-115); Magnesium 1.7 mg/dL (1.6-2.6); Phosphorus 5.3 mg/dL (2.3-4.7); Protein, Total 4.5 g/dL (5.8-8.1); Sodium 136 mmol/L (136-145)
[2018-01-27 06:44] VITALS: BMI 49.5
[2018-01-27 07:28] LABS: Actual Bicarbonate (HCO3a) 25.1 mEq/L (22-26); Base Excess (BEa) 2.9 mEq/L (0 (+/-) 2.5); CO2 Tension 29.3 mmHg (35.0-45.0); O2 Tension (PaO2) 72.4 mmHg (80.0-100.0); pH, Arterial 7.55 (7.35-7.45)
[2018-01-27 07:29] LABS: ALV-art Gradient 390.075 (0-20); Calcium, Ionized 0.8 mmol/L (1.12-1.30); Hematocrit-ABG 30.2 % (42.0-52.0); Hemoglobin (Hb) 8.4 g/dL (14.0-18.0); Puncture Site LINE
--- NOTE | 2018-01-27 08:33 | RAD ---
PORTABLE CHEST: Date: 01/27/18 COMPARISON: Prior day's study. HISTORY: Respiratory distress. FINDINGS: Endotracheal and NG tubes, as well as right-sided HemoSplit catheter and left-sided PICC line all rem ain unchanged in position. Parenchymal lung changes are stable. Heart size is enlarged. IMPRESSION: Stable exam. POS: VERNON
[2018-01-27] MEDS: Meropenem 500 MG in Sodium Chloride 0.9% 100 ML IVPB SCH ×2 (08:56→20:58)
[2018-01-27] MEDS: Dextrose 5 % And 0.9 % NaCl 1,000 ML IV SCH ×2 (08:57→21:33)
--- NOTE | 2018-01-27 09:04 | PRG ---
DATE OF SERVICE: 01/26/2018 SERVICE: Pulmonary Medicine. INTERVAL HISTORY: The patient went down for an operation this morning. This afternoon, there have b een no significant interval events. He was transiently on multiple pressors. These are being weaned off once again. He does not have any complaints, but is currently suffering from anoxic brain injur y and cannot register those things. Otherwise, there were no reported events. PHYSICAL EXAMINATION: VITAL SIGNS: Afebrile currently. T-max 100.5, pulse 74, blood pressure 103/55, respirations 24, sat uration 91% on 70% FIO2 and a PEEP of 7. GENERAL: The patient is intubated. He is on no sedation, but nonresponsive. HEENT: Normocephalic, atraumatic. Sclerae are white. Conjunctivae pink. Oral and nasal mucosa is moist without lesions. LUNGS: Decent air entry. Rhonchi are present throughout bilateral lung [place]. No prolonged expira tory phase or wheezing is appreciated. HEART: Normal rate, regular. ABDOMEN: Soft, nontender, nondistended. Bowel sounds are positive. He has a wound VAC in place. GENITOURINARY: Walker catheter in place. MUSCULOSKELETAL: No cyanosis or clubbing. No pitting in the bilateral lower extremities. NEUROLOGIC: The patient has fixed pupils and is nonresponsive to light. Doll's eyes are abnormal. He is not overbreathing the ventilator despite turning the rate down transiently. He does not withdr aw from noxious stimuli to the upper or lower extremities. He has downgoing toes with stimulation of the bilateral feet, but apparently has a crossed extensor type of a reflex. He does not have a coug h or gag. With deep suctioning, it does not elicit any response whatsoever. He does not grimace. LABORATORY DATA: WBC 20.8, hemoglobin 9.0, platelets 273,000. Band count is 21%. PH of 7.44, pCO2 of 33, pO2 of 73. Creatinine 4.27, BUN 28, anion gap 21 and down trending, bicarbonate 24. Potassiu m and chloride fall within normal limits. Potassium is 4.4. Total bilirubin 2.9, AST 2011, ALT 534. Blood cultures x2 and urine culture remain unremarkable. IMAGING: Chest x-ray demonstrates a stable chest. Endotracheal tube and NG tube remain in stable po sition. Left basilar infiltrate is present. ASSESSMENT: 1. Acute hypoxic respiratory failure. 2. Community-acquired pneumonia, recent. 3. Septic shock. 4. Peritonitis, secondary to perforated colon. 5. Acute kidney injury. 6. Anoxic brain injury. 7. Multisystem organ failure. DISCUSSION AND PLAN: At this point, the patient is demonstrating features consistent with anoxic bra in injury. The EEG was flat. After discussing with the patient's family options moving forward, the y have requested a Neurology consultation which is perfectly reasonable. If their findings confirm m y suspicion, I will be transitioning over to comfort care only over the next 24-48 hours. In the khurram ntime, supportive measures will be continued. Critical care time: 45 minutes.
--- NOTE | 2018-01-27 13:58 | PRG ---
DATE OF SERVICE: 01/27/2018 SUBJECTIVE: Mr. Dickey is neurologically flat. There is no neurological response to painful stimulu s, sternal rub or orbital pressure. His pupils are not responsive. He has no gag reflex on movement of his endotracheal tube. He remains essentially anuric. He remains on his vasopressin, but other pressors have been weaned and discontinued. LABORATORY: White count 19, hemoglobin 9, potassium 4, BUN 32, creatinine 4.8, GFR 12. Phosphorus is down to 5.3, magnesium is 1.7. Liver function tests are elevated. PHYSICAL EXAMINATION: LUNGS: Clear to auscultation. CARDIAC: Regular rate and rhythm. ABDOMEN: Soft. Ileostomy healthy with ileostomy output. EXTREMITIES: Unremarkable. I have discussed with pathology. The patient does have pancreatic cancer, tail of the pancreas. He is noted to have extension to the splenic flexure causing colon obstruction and extension to the adhe rent stomach. He did have evidence preoperatively of rupture with peripancreatic fluid This is a st age IV pancreatic cancer. With his anoxic encephalopathy from CPR preoperatively, acute renal failur e, anuric, I would talk to the family and reiterated prognosis is grim and consideration of withdrawa l of care should be given. I would not plan another operation such as definitive closure of his abdo men at this time. At this point, an EEG was performed yesterday morning. We are waiting the results from Dr. Roy who has been informed. Once the family talks with Dr. Roy we will probably ini tiate withdrawal of care. This was discussed with the patient's daughter.
--- NOTE | 2018-01-27 17:35 | CON ---
DATE OF CONSULTATION: 01/27/2018 CONSULTING PHYSICIAN: Dr. Timmy Ambrocio and Dr. Brien Shea. IMPRESSION: Anoxic brain damage with extremely poor prognosis. Discussed these issues with his and son. PLAN: As per the family's wishes. HISTORY OF PRESENT ILLNESS: Mr. Dickey is a 67-year-old man, who was recently experiencing some abdo heike pain. He subsequently was found to have evidence of bowel obstruction. He underwent surgery a nd was subsequently discovered that he had pancreatic cancer, had a cardiopulmonary arrest since admi ssion and was resuscitated. He has failed to regain consciousness. PAST MEDICAL HISTORY: Unremarkable. ALLERGIES: PENICILLIN. SOCIAL HISTORY: . No tobacco or alcohol use. FAMILY HISTORY: Not obtainable. REVIEW OF SYSTEMS: Not obtainable. PHYSICAL EXAMINATION: GENERAL: He is a somewhat overweight elderly man with ventilatory support. VITAL SIGNS: Pulse 70, respirations are set at 13, saturations 98%, blood pressure 113/57. HEENT: Pupils are nonreactive. Eyes appear to be conjugate with doll's head maneuver, did not elici t any movement. He has no corneal response. No gag response was elicited on movement of the endotra cheal tube. Plantar responses were downgoing. He had no pain withdrawal response. No spontaneous movements were noted. EEG showed a nearly flat background in the right hemisphere. There was some low amplitude theta acti vity seen in the left hemisphere. No epileptiform features were present. IMPRESSION: A gentleman suffered cardiopulmonary arrest with significant anoxic brain damage. His p rognosis for functional recovery or essentially zero. Situations compounded by a pancreatic cancer. Discussed these issues with the family and I would be happy to provide more help if he needed.
--- NOTE | 2018-01-27 17:41 | PRG ---
DATE OF SERVICE: 01/27/2018 SERVICE: Pulmonary Medicine. INTERVAL HISTORY: The patient is doing poorly from a mentation standpoint. Hemodynamically stable. His oxygen requirements have not changed too terribly much. He remains on 70% FIO2. Overnight, the re were no interval changes to his condition. Pathology came back and was actually suggesting the herb smallwood was suffering from widely metastatic pancreatic cancer. We are pending a Neurology evaluation per family request. PHYSICAL EXAMINATION: VITAL SIGNS: Afebrile, pulse 69, blood pressure 113/57, respirations 13, saturation 95% on 70% FIO2 and a PEEP of 5. GENERAL: The patient is intubated. He is on no sedation, but nonresponsive. HEENT: Normocephalic, atraumatic. Sclerae are white, conjunctivae pink. Oral mucosa is moist witho ut lesions. LUNGS: Decent air entry. Crackles are present. No prolonged expiratory phase or wheezing. HEART: Normal rate, regular. ABDOMEN: Soft. No rebound or guarding is present. Bowel sounds are absent. GENITOURINARY: Walker catheter in place. NEUROLOGIC: Patient has nonresponsive pupils. Gag and cough are not present with deep suctioning. He is not overbreathing the ventilator despite transiently turning down the rate fairly low for about 30 seconds. He is not withdrawing from noxious stimuli in all 4 extremities. LABORATORY DATA: WBC 19.9, hemoglobin 9.5, platelets 257,000. PH 7.55, pCO2 of 29, pO2 72. Creatin ine 4.82. Basic metabolic profile otherwise unremarkable. AST and ALT are down trending, total bili jimenez 3.0, gently up trending. Blood cultures x2 and urine cultures unremarkable. IMAGING: Chest x-ray demonstrates stable exam without acute change. ASSESSMENT: 1. Acute hypoxic respiratory failure. 2. Community-acquired pneumonia, recent. 3. Septic shock. 4. Pulseless electricity activity arrest. 5. Peritonitis secondary to perforated colon. 6. Pancreatic cancer, widely metastatic. 7. Acute kidney injury. 8. Shock liver. 9. Anoxic brain injury with suspected brain . 10. Multisystem organ failure. DISCUSSION AND PLAN: We are pending a Neurology evaluation. Once this occurs, the patient's family is likely going to be choosing to transition over comfort care only. Pulmonary Critical Care will co ntinue to follow while the patient remains in this location. CRITICAL CARE TIME: 30 minutes.
[2018-01-27] MEDS: Pantoprazole 40 MG VIAL IVP SCH (20:58)
[2018-01-27] MEDS: Vasopressin 40 UNIT, Admixture Fee 1 EACH in Sodium Chloride 0.9% 100 ML IV SCH (20:58)
[2018-01-28] MEDS: Albuterol Sulfate 2.5 mg/3 ml Neb NEB SCH (02:23)
[2018-01-28] MEDS: HumaLOG 300 UNITS/3 ML VIAL SC PRN (04:34)
[2018-01-28 04:45] LABS: INR-International Normal Ratio 1.7; PTT 35.8 SEC (22.9-36.1); Prothrombin Time 20.4 SEC (12.0-14.7)
[2018-01-28 05:01] LABS: ALT (SGPT) 191 U/L (8-55); AST (SGOT) 415 U/L (5-34); Albumin 2.3 g/dL (3.4-4.8); Alkaline Phosphatase 343 U/L (40-150); Anion Gap 15 mmol/L (10-20); BUN (Urea Nitrogen) 36 mg/dL (8.4-25.7); Bilirubin, Total 3.1 mg/dL (0.2-1.2); Calc. Creatinine Clearance 25 mL/min (70-130); Calcium 6.8 mg/dL (7.8-10.44); Carbon Dioxide 28 mmol/L (23-31); Chloride 98 mmol/L (98-107); Estimated GFR-MDRD 10; Globulin 2.1 g/dL (2.4-3.5); Glucose 196 mg/dL (80-115); Magnesium 1.5 mg/dL (1.6-2.6); Potassium 3.7 mmol/L (3.5-5.1); Protein, Total 4.4 g/dL (5.8-8.1); Sodium 137 mmol/L (136-145)
[2018-01-28 05:13] LABS: Band 9 % (5-11); Hemoglobin 10.1 g/dL (14.0-18.0); Lymphocytes 3 % (21-51); MDiff Complete? YES; Mean Corpuscular HGB CONC 33.9 g/dL (32.0-36.0); Mean Corpuscular Volume 85.7 fl (80.0-94.0); Mean Platelet Volume 9.2 fL (7.4-10.4); Monocytes 6 % (0-10); Neutrophil 82 % (42-75); Nucleated RBC 5 % (0); Platelet Count 198 thou/uL (130-400); Red Blood Cell (RBC) Count 3.48 mill/uL (4.70-6.10); White Blood Cell (WBC) Count 16.8 thou/uL (4.8-10.8)
--- NOTE | 2018-01-28 09:10 | RAD ---
RADIOGRAPH CHEST 1 VIEW: Date: 01-28-18 Time: 5:17 a.m. HISTORY: 67-year-old male with respiratory failure. COMPARISON: 01-27-18 at 4:53 a.m. FINDINGS: Left sided PICC, right subclavian central line, right IJ double lumen dialysis catheter, endotracheal tube, and NG tube remain. Diffuse bilateral pulmonary mixed interstitial and alveolar densities, het erogeneously distributed. Probable left pleural effusion. Retrocardiac left lower lobe consolidation. No pneumothorax. No interval change. IMPRESSION: No interval change. GEETA POS: VERNON
--- NOTE | 2018-01-28 10:03 | EEG ---
Referring Physician: LIAT EEG # [id number] TEST TYPE: ROUTINE PORTABLE INPATIENT REPORT: AN EEG USING THE INTERNATIONAL TEN-TWENTY SYSTEM OF ELECTRODE PLACEMENT WAS PERFORMED. The background activity shows fairly significant suppression over the right hemisphere more so than the left. There is some preserved low amplitude 6 hertz theta activity seen in the left hemisphere. Photic stimulation was unremarkable. No epileptiform features were seen. No sleep transients were noted. IMPRESSION: THIS IS AN ABNORMAL STUDY FOR THE FINDINGS OF SLOWING AND SUPPRESSION OVER BOTH HEMISPHERES, WORSE ON THE RIGHT THAN THE LEFT, CONSISTENT WITH DIFFUSE NEURONAL INJURY. Apprentice Cosmetologist: ANITA Inside Technical Sales Representative: EEG.PHIL HENRIQUEZ
--- NOTE | 2018-01-28 10:27 | PRG ---
DATE OF SERVICE: 01/28/2018 Mr. Dickey today remains unresponsive to any neurological status. PHYSICAL EXAMINATION: VITAL SIGNS: Heart rate 73, 113/50, respiratory rate 19. LABORATORY: White count 16, hemoglobin 10, sodium 137, potassium 3.7, BUN 36, creatinine 5.7, 50 mL gastric output 1000 mL of wound VAC drainage. Walker output 105 mL over 24 hours. LUNGS: Clear to auscultation. CARDIAC: Regular rate and rhythm. ABDOMEN: Soft, ABThera in place. Ileostomy in place. ASSESSMENT AND PLAN: 1. Anoxic encephalopathy. Dr. Roy talked to the family years today and reviewed the EEG and the re is not any hope for any survival outcome. 2. Metastatic pancreatic carcinoma involving the splenic flexure, splenic hilum and stomach. Termin al illness. 3. Acute renal failure. 4. DNR status. The patient's daughter is at the bedside. Family is waiting on arrival of the remainder of family me mbers and they will withdraw support this afternoon. No further treatment will be provided. Support tobin care until family gets here.
--- NOTE | 2018-01-28 14:51 | PRG ---
DATE OF SERVICE: 01/28/2018 SERVICE: Pulmonary Medicine. INTERVAL HISTORY: The patient is doing poorly from a mentation standpoint. He has had no significant interval change to his neurologic condition. He cannot register any opinion. There were no events overnight. PHYSICAL EXAMINATION: VITAL SIGNS: Afebrile, pulse 74, blood pressure 131/54, respirations 21, saturation 92% on 70% FiO2 and PEEP of 10. GENERAL: The patient is intubated, but on no medication. He is completely nonresponsive. HEENT: Normocephalic, atraumatic. Sclerae are white, conjunctivae pink. Oral and nasal mucosa moist without lesions. LUNGS: Decent air entry. There are crackles present. Minimally prolonged expiratory phase is present, but no wheezing is appreciated. Rhonchi are there. HEART: Normal rate, regular. ABDOMEN: Soft, nontender, and nondistended. Bowel sounds are hypoactive. MUSCULOSKELETAL: No cyanosis or clubbing. There is trace to 1+ pitting in the bilateral lower extremities. NEUROLOGIC: His pupils are fixed and nonreactive with light. Corneals are abnormal. Doll's eyes are abnormal. He has no cough or gag. He is not overbreathing the ventilator despite transiently turning the right lobe for a long enough period of time to cause minimal desaturation. He does not withdraw from noxious stimuli in all 4 extremities. LABORATORY DATA AND IMAGING DATA: WBC 16.8 and down trending, hemoglobin 10.1, and platelets 198,000. INR 1.7 and slowly improving. Creatinine 5.72. BUN 36 which is also stable. Basic metabolic profile is otherwise unremarkable. AST and ALT are all down trending. Chest x-ray demonstrates normal change. There is an endotracheal tube, left-sided PICC line, right subclavian central line and 2 lumen IJ catheter. Retrocardiac infiltrate on the left is present, likely left-sided pleural effusion. ASSESSMENT: 1. Acute hypoxic respiratory failure. 2. Community-acquired pneumonia. 3. Septic shock. 4. Pulseless electrical activity. 5. Pancreatic cancer, widely metastatic. 6. Peritonitis secondary to perforated colon. 7. Acute kidney injury. 8. Shock liver. 9. Anoxic brain injury. 10. Multiorgan system failure. DISCUSSION AND PLAN: We will continue supportive care for the time being. The patient remains DNR. The family is getting together today to transition over to comfort care only and once this occurs, I will compassionately extubate him to room air. Pulmonary or Critical Care will continue to follow along if he continues to breathe on, but my suspicion is he will pass very quickly. Critical care time: 30 minutes. MARTINEZ
[2018-01-28 14:55] VITALS: BP 113/58
--- NOTE | 2018-01-28 18:47 | PRG ---
DATE OF SERVICE: 01/28/2018 NEPHROLOGY PROGRESS NOTE SUBJECTIVE: The patient was seen and examined in ICU and was intubated. I had discussion at the bed side with son and reporting that the family would wish to have more dialysis. PHYSICAL EXAMINATION: GENERAL: This is an obese male seen in ICU, intubated. VITAL SIGNS: Temperature 96.8, pulse 69, respiratory rate 25, blood pressure 117/50. HEENT: Intubated. CARDIOVASCULAR SYSTEM: S1, S2. RESPIRATORY: Clear. GASTROINTESTINAL: Abdomen is soft. MUSCULOSKELETAL: 1+ edema. DERMATOLOGIC: No skin rash. NEUROLOGIC: Intubated, unresponsive. LABORATORY DATA: Potassium is 4.0, BUN 32, creatinine is 4.82. ASSESSMENT AND PLAN: 1. Acute kidney injury on chronic kidney disease with worsening creatinine, stable with dialysis. F garciay wished not to have any more dialysis. We will continue to monitor. 2. Anemia. Monitor hemoglobin. 3. Hyperkalemia. 4. Acidosis. 5. Intermediate prognosis is poor. We will follow up with Cardiology.
--- NOTE | 2018-01-28 18:57 | PRG ---
DATE OF SERVICE: 01/28/2018 SUBJECTIVE: The patient was seen and examined in ICU. No family members available. The patient is intubated and nonresponsive. OBJECTIVE: GENERAL: This is an obese male, seen in ICU, intubated. VITAL SIGNS: Temperature 98.8, pulse 74, respiratory rate 24, blood pressure 131/55. HEENT: Intubated. NEUROLOGIC: Not responding. CARDIOVASCULAR: S1, S2 heard. RESPIRATORY: Clear anteriorly. GASTROINTESTINAL: Abdomen is obese. MUSCULOSKELETAL: 1+ edema. DERMATOLOGIC: No skin rash. LABORATORY DATA: Potassium is 3.7, BUN is 36, creatinine is 5.7. ASSESSMENT AND PLAN: 1. Acute kidney injury on chronic kidney disease with worsening creatinine. Family wishes not to pagan ve any aggressive measures including dialysis. I will sign off. 2. Hyperkalemia. 3. Acidosis. 4. Anemia. 5. Prognosis guarded. Family wishes to consider comfort measures only. We will sign off.
[2018-01-28 20:06] VITALS: TEMP 98.2
--- NOTE | 2018-01-29 04:00 | DIS ---
SUMMARY DATE OF ADMISSION: 01/22/2018 DATE OF : 01/28/2018 DISCHARGE DIAGNOSES: 1. Metastatic pancreatic tail adenocarcinoma adherent to gastric fundus, spleen, transverse colon wi th colon obstruction. 2. Sepsis. 3. Cardiopulmonary arrest. 4. Coagulopathy secondary to above. 5. Anoxic/hypoxic brain injury. PROCEDURES THIS HOSPITALIZATION: 1. CT scan of the abdomen and pelvis in the emergency room, CPR, intubation in the morning after adm ission. 2. After he stabilized after the CPR episode, patient underwent laparotomy, extended right colectomy with transverse colon resection, splenic flexure resection, proximal descending colon resection, spl enectomy, en bloc resection of a 3 cm2 area of stomach with blind ileum left in place and ABThera hans tara, abdominal washout, and central line placed. Postoperative mechanical ventilation, Pulmonary Med icine consultation, Dr. Anaya. 3. Nephrology consultation. 4. Dialysis. 5. Laparotomy, dialysis catheter placement, abdominal washout, ileostomy, and ABThera replacement. 6. Consultation with Dr. Roy, Neurology. EEG essential, flat line EEG waveforms with minimal ac tivity requiring turning up the amplitude to appreciate waveforms neurologically without reflexes. 7. Conversion to DNR. 8. Withdrawal of care and palliative measures. 9. Pronounced at 1806 hours. HISTORY: Alexis Dickey hospitalized with a perisplenic inflammatory reaction and thought to be d iverticulitis. A PICC line was placed and he was sent to [facility] with meropenem. He had had a CT angio and CT scan aspiration of the perisplenic fluid without growth. He had had two thoracentes is without growth at [facility]. While on arrival, he was appreciated to have abdominal distentio n. CAT scan revealed changes consistent with a bowel obstruction. He was sent back to the emergency room, where I assumed his care. He was admitted. Decision was made in the late evening to perform an operation in the next morning. His hemoglobin was stable. Electrolytes were normal. Abdomen was soft and nontender. He was kept n.p.o., put in the hospital overnight. The next morning had a Hibi clens shower, went back to bed. Nurses found him with cardiopulmonary arrest and CPR initiated and h e was intubated and transferred to intensive care unit. He stabilized over the next 2-3 hours and wa s taken to the operating room for the above procedure. Intraoperative findings were that of perforat ed colon, ischemic right colon and transverse colon undergoing the above operation. Postoperatively, his abdomen was left open with an ABThera with plans to wash it out, blind ileum was left in place t hrough the right extended colectomy. I suspect that he had a tumor at operation. The patient retur brad to the operating room 3 days later on Friday, ____ undergoing laparotomy, washout, ileostomy, ABT iris replacement with plans to close the abdomen definitively, although by this time, it was apprecia dee he was neurologically flat. Dr. Roy saw him, EEG performed. Dr. Roy saw him and all car ing physicians communicated to the family the poor prognosis due to his lack of neurological response and that he would not have a quality of life since he was brain . Pathology confirmed pancreati c tail adenocarcinoma. Family members visited him and the patient was extubated and pronounced . Body released to the [facility].
== END 2018-01-28 19:56 | disposition expired | DRG 405 ==
LOC: ERS 19:00 → SJJU 20:30 → CCU 01-23 07:25
PROVIDERS: ADMIT Specialist; ATTEND Specialist
PROC: 0DTF0ZZ Resection of Right Large Intestine, Open Approach (ICD-10-PCS; principal; 2018-01-23)
PROC: 0FBG0ZZ Excision of Pancreas, Open Approach (ICD-10-PCS; 2018-01-23)
PROC: 5A12012 Performance of Cardiac Output, Single, Manual (ICD-10-PCS; 2018-01-23)
PROC: 5A1955Z Respiratory Ventilation, Greater than 96 Consecutive Hours (ICD-10-PCS; 2018-01-23)
PROC: 0DB60ZZ Excision of Stomach, Open Approach (ICD-10-PCS; 2018-01-23)
PROC: 07TP0ZZ Resection of Spleen, Open Approach (ICD-10-PCS; 2018-01-23)
PROC: 0GB20ZZ Excision of Left Adrenal Gland, Open Approach (ICD-10-PCS; 2018-01-23)
PROC: 0DBM0ZZ Excision of Descending Colon, Open Approach (ICD-10-PCS; 2018-01-23)
PROC: 0DTL0ZZ Resection of Transverse Colon, Open Approach (ICD-10-PCS; 2018-01-23)
PROC: 0BH17EZ Insertion of Endotracheal Airway into Trachea, Via Natural or Artificial Opening (ICD-10-PCS; 2018-01-23)
PROC: 30233K1 Transfusion of Nonautologous Frozen Plasma into Peripheral Vein, Percutaneous Approach (ICD-10-PCS; 2018-01-23)
PROC: 30233K1 Transfusion of Nonautologous Frozen Plasma into Peripheral Vein, Percutaneous Approach (ICD-10-PCS; 2018-01-23)
PROC: 30233N1 Transfusion of Nonautologous Red Blood Cells into Peripheral Vein, Percutaneous Approach (ICD-10-PCS; 2018-01-23)
PROC: 30233N1 Transfusion of Nonautologous Red Blood Cells into Peripheral Vein, Percutaneous Approach (ICD-10-PCS; 2018-01-23)
PROC: 04HY32Z Insertion of Monitoring Device into Lower Artery, Percutaneous Approach (ICD-10-PCS; 2018-01-23)
PROC: 02H633Z Insertion of Infusion Device into Right Atrium, Percutaneous Approach (ICD-10-PCS; 2018-01-23)
PROC: 0D1B0Z4 Bypass Ileum to Cutaneous, Open Approach (ICD-10-PCS; 2018-01-26)
PROC: 5A1D70Z Performance of Urinary Filtration, Intermittent, Less than 6 Hours Per Day (ICD-10-PCS; 2018-01-26)
PROC: 30233N1 Transfusion of Nonautologous Red Blood Cells into Peripheral Vein, Percutaneous Approach (ICD-10-PCS; 2018-01-26)
PROC: 0JH60XZ Insertion of Tunneled Vascular Access Device into Chest Subcutaneous Tissue and Fascia, Open Approach (ICD-10-PCS; 2018-01-26)
PROC: 02HV33Z Insertion of Infusion Device into Superior Vena Cava, Percutaneous Approach (ICD-10-PCS; 2018-01-26)
DX: C25.2 Malignant neoplasm of tail of pancreas (principal); A41.9 Sepsis, unspecified organism; I46.9 Cardiac arrest, cause unspecified; J96.01 Acute respiratory failure with hypoxia; K72.00 Acute and subacute hepatic failure without coma; K63.1 Perforation of intestine (nontraumatic); R40.2114 Coma scale, eyes open, never, 24 hours or more after hospital admission; G93.1 Anoxic brain damage, not elsewhere classified; R65.21 Severe sepsis with septic shock; K65.9 Peritonitis, unspecified; J18.9 Pneumonia, unspecified organism; R40.2314 Coma scale, best motor response, none, 24 hours or more after hospital admission; R40.2214 Coma scale, best verbal response, none, 24 hours or more after hospital admission; C78.5 Secondary malignant neoplasm of large intestine and rectum; N17.9 Acute kidney failure, unspecified; K55.9 Vascular disorder of intestine, unspecified; C78.89 Secondary malignant neoplasm of other digestive organs; D68.8 Other specified coagulation defects; Z68.42 Body mass index [BMI] 45.0-49.9, adult; E87.2 Acidosis; E66.01 Morbid (severe) obesity due to excess calories; Z66 Do not resuscitate; Z51.5 Encounter for palliative care; N18.9 Chronic kidney disease, unspecified; D64.9 Anemia, unspecified; D73.3 Abscess of spleen; I12.9 Hypertensive chronic kidney disease with stage 1 through stage 4 chronic kidney disease, or unspecified chronic kidney disease; E11.22 Type 2 diabetes mellitus with diabetic chronic kidney disease; E87.5 Hyperkalemia
CPT/HCPCS: 36415; 36416; 36430; 71045; 80048; 80053; 80170; 81001; 82553; 82805; 83605; 83735; 84100; 84484; 85007; 85025; 85027; 85610; 85730; 86850; 86900; 86901; 87040; 87086; 87340; 88307; 88309; 88341; 88342; 90935; 93005; 93010; 94002; 94003; 94640; 95816; 95819; 96374; A4216; C1752; C1769; C9113; G0257; G8978-GP-CN; G8979-GP-CM; J0131; J0171; J0461; J0670; J1580; J1642; J1644; J1650; J1885; J2060; J2185; J2250; J2270; J3370; J3480; J3490; J7050; J7070; J7611; P9016; P9045; P9047; P9059